=== PATIENT | female | born 1955 | race Caucasian/White ===

== ENCOUNTER 2019-11-19 09:59 | Emergency (ER) | payer MEDICARE, SELFPAY ==
[2019-11-19 09:59] VITALS: BP 108/74; PULSE 89; RESP 20; TEMP 36.9; O2SAT 94; BMI 29.8
--- NOTE | 2019-11-19 10:15 | ED_ITS ---
Entered by Klaudia Price, acting as scribe for HPI - Back Pain/Injury General: Chief Complaint: Back Pain/Injury Stated Complaint: Back Pain Time Seen by Provider: 11/19/19 10:19 Source: EMS Mode of arrival: EMS History of Present Illness: HPI Narrative: Ms. Dash is a very nice 64-year-old female who comes in complaining of right upper back pain. She states that she has a pain up underneath her right shoulder blade. She states it hurts more to take a deep breath and she is been coughing. She denies any chest pain or shortness of breath. She states that the pain started last night and is gotten progressively worse. It hurts more to sit and move in certain positions. She describes the pain as sharp and has had similar symptoms in the past but never to this degree. MD elicited complaint: back pain Onset (ago): day(s) (last night) Timing: constant Severity: moderate Quality: sharp Radiation: none Exacerbating factors: movement, walking and deep breaths Relieving factors: none Context: turning/twisting Associated symptoms: Reports other (shortness of breath , R shoulder pain, R rib pain and back pain); Deny abdominal pain, chills, difficulty walking, dysuria, fatigue, fever(s), hematuria, nausea, syncope, urinary urgency or vomiting Work related injury: No Review of Systems General: Reports: other (negative unless marked) Const: Denies: fever, chills, body aches, fatigue, malaise or diaphoresis Eyes: Denies: change in vision or blurry vision ENMT: Denies: throat pain, painful swallowing, hoarseness, ear pain, ear discharge, Change in hearing or nasal discharge Card: Denies: chest pain, palpitations, irregular heart rhythm, syncope, pre- syncope, shortness of breath on exertion or shortness of breath when lying down Resp: Denies: shortness of breath, productive cough, non-productive cough, wheezing, coughing up blood or chest congestion GI: Denies: abdominal pain, nausea, vomiting, vomiting blood, coffee grounds in vomit, diarrhea, constipation, cramping, blood in stool or black tarry stool : Denies: flank pain, painful urination, urinary frequency, urinary urgency, decreased urine ouput, urinary incontinence or blood in urine Musc: Reports: back pain; Denies: neck pain, extremity pain, extremity swelling, joint pain, joint swelling, joint warmth or joint stiffness Skin/Breast: Denies: rash, skin tenderness or yellow skin Neuro: Denies: headache, numbness in extremities, weakness in extremities, changes in sensation, lack of coordination, difficulty walking, dizziness, vertigo or confusion Endo: Denies: excessive thirst, tired all the time, cold intolerance, excessive sweating, flushing or hot flashes Joseph/Lymph: Denies: easy bruising, easy bleeding, petechiae or enlarged lymph nodes All/Imm: Denies: hives, throat swelling, tongue swelling, facial swelling or acute wheezing PFSH ED PFSH: Statuses (acute, chronic, etc) shown below reflect problem list status as previously entered and may not be historically accurate Medical History Asthma (Acute) Surgical History History of back surgery (Acute) Surgical history of tubal ligation (Acute) Social History Smoking and tobacco status: former smoker Physical Exam Const: COMMON NORMALS: no apparent distress, oriented x3, no limitations, healthy appearing and well nourished EXAM LIMITATIONS: no altered mental status GENERAL APPEARANCE: cooperative, well kempt and well developed ORIENTATION/CONSCIOUSNESS: Yes awake HENMT: COMMON NORMALS: normocephalic, head/scalp atraumatic, hearing grossly normal bilaterally, external ears normal, EAC's normal, external nose normal and moist oral mucous membranes HEAD & SCALP: normal to inspection, normocephalic and atraumatic FACE & SINUS: normal facial exam and face symmetric NOSE: external nose normal and nares normal EXTERNAL EAR: Yes external ears normal EXTERNAL AUDITORY CANAL: EAC's normal MOUTH: oral and palatal mucosa normal and tongue normal Eye: COMMON NORMALS: PERRL, EOMs intact bilaterally, conjunctivae normal and no scleral icterus GENERAL EYE: normal appearance of both eyes and normal light reflex CONJUNCTIVA: Yes conjunctivae normal SCLERA: sclerae normal CORNEA: Yes corneas normal PUPIL: Yes PERRL DIRECT OPHTHALMOSCOPY: Yes normal light reflex Neck/C-Spine: COMMON NORMALS: full ROM, no lymphadenopathy, supple, no meningeal signs and no JVD GENERAL: Yes normal visual inspection and Yes trachea midline CERVICAL SPINE: Yes cervical ROM normal Chest: COMMONS NORMALS: inspection of chest normal and palpation of chest normal Resp: COMMON NORMALS: normal respiratory effort, no retractions, no use of accessory muscles and clear to auscultation bilaterally EFFORT & INSPECTION: Yes able to speak in complete sentences AUSCULTATION: clear to auscultation bilaterally Cardio: COMMON NORMALS: no JVD, regular rate, regular rhythm, S1 normal heart sound, S2 normal heart sound, no gallops, no clicks, no murmurs and no rub JUGULAR VENOUS DISTENTION: no JVD RATE: regular rate RHYTHM: regular rhythm HEART SOUNDS: S1 normal and S2 normal GI: COMMON NORMALS: soft to palpation, non-tender, no hepatosplenomegaly and no masses INSPECTION: Yes normal to inspection PALPATION: Yes soft and Yes no hepatosplenomegaly : COMMON NORMALS: Yes no CVA tenderness BLADDER/KIDNEY EXAM: Yes no CVA tenderness Back/Pelvis: COMMON NORMALS: no CVA tenderness, thoracic and lumbar spine normal to inspection, no thoracic nor lumbar tenderness and thoraco-lumbar ROM normal Extremity: COMMON NORMALS: normal to inspection, full ROM, normal capillary refill, no joint enlargement, no clubbing, cyanosis or edema and no calf tenderness Neuro: COMMON NORMALS: oriented x3, CN's II-XII intact bilaterally, moves all extremities, no focal motor deficits and no sensory deficits noted MENINGEAL SIGNS: Yes no meningeal signs Psych: COMMON NORMALS: mental status grossly normal, thought process normal, cooperative, affect normal, speech normal and activity/motor behavior normal APPEARANCE: Yes well kempt SPEECH: Yes normal speech THOUGHT PROCESS: normal thought process Skin: COMMON NORMALS: no rashes or lesions noted, skin turgor normal, no jaundice, no petechiae and no mottling GENERAL SKIN EXAM: no rashes or lesions noted and turgor normal Course Vital Signs: Vital signs: Vital Signs Temperature 98.5 F 11/19/19 09:59 Pulse Rate 81 11/19/19 13:50 Respiratory Rate 20 H 11/19/19 12:46 Blood Pressure 125/80 11/19/19 13:50 Pulse Oximetry 93 11/19/19 13:50 MDM - Back Pain/Injury MDM Narrative: Medical decision making narrative: The patient comes in complaining of right upper back pain with a pleuritic component to her pain. Her d-dimer is negative and her Wells criteria is low so I do not believe she needs any further investigation such as a CTA. Patient overall is feeling better after pain medication. She has pain medication at home. Her CT shows a right upper lobe pneumonia which is likely causing her pain. Her cardiac evaluation is unremarkable. The patient has not abnormal EKG at baseline and no chest pain. Her troponins are acceptable if not progressed. The patient declines any further evaluation to include admission and would like to go home. She is not hypoxic I believe this would be appropriate. She does understand she is welcome to return should she change her mind. Lab Data: Labs: Lab Results 11/19/19 11/19/19 11/19/19 Range/Units 10:08 10:08 10:08 WBC 6.4 (4.0-10.0) 10^3/ uL RBC 4.61 (4.1-5.3) 10^6/u L Hgb 14.2 (11.5-15.3) g/dL Hct 43.8 (37.0-47.0) % MCV 95.0 (81-99) fL MCH 30.8 (28.0-34.0) pg MCHC 32.4 (30.0-36.0) g/dL RDW 12.1 (12.1-15.1) % Plt Count 333 (130-400) 10^3/c mm MPV 9.9 (7.4-10.4) fL Neut % (Auto) 55.0 % Lymph % (Auto) 37.4 % [place] % (Auto) 5.6 % Eos % (Auto) 1.2 % Baso % (Auto) 0.5 % Neut # (Auto) 3.5 (1.8-7.7) 10^3/u L Lymph # (Auto) 2.4 (0.8-4.8) 10^3/u L [place] # (Auto) 0.4 (0.2-0.9) 10^3/u L Eos # (Auto) 0.1 (0.0-0.8) 10^3/u L Baso # (Auto) 0.0 (0.0-0.1) 10^3/u L Nucleated RBC % (a uto) 0 % Nucleated RBCs # 0.0 /100WBC D-Dimer 0.34 (0-0.59) ug/mIFE U Sodium 141 (136-145) mmol/L Potassium 4.2 (3.5-5.1) mmol/L Chloride 107 (98-107) mmol/L Carbon Dioxide 20 L (22-29) mmol/L Anion Gap 18.2 (5-19) BUN 13 (8-23) mg/dL Creatinine 0.9 (0.5-0.9) mg/dL GFR Calculation 63.4 L (90-130) mL/min Glucose 95 (74-106) mg/dL POC Glucose (70-110) mg/dL Calcium 9.8 (8.8-10.2) mg/Dl Total Bilirubin 0.3 (0.15-1.2) mg/dL AST 35 H (0-32) U/L ALT 35 H (0-33) U/L Alkaline Phosphata se 124 H (35-105) IU/L Troponin T Baselin e (0-10) ng/mL Troponin T 120 Min [place] (0-10) ng/mL Delta Troponin T (0-10) ABS# Total Protein 7.2 (6.6-8.7) g/dL Albumin 5.4 H (3.5-5.2) g/dL Globulin 1.8 (1.3-4.6) g/dL Urine Color (Yellow) Urine Appearance (CLEAR) Urine pH (5-7) Ur Specific Gravit y (1.005-1.030) Urine Protein (Negative) Urine Glucose (UA) (Normal) Urine Ketones (Negative) Urine Occult Blood (Negative) Urine Nitrate (Negative) Urine Bilirubin (NEGATIVE) Urine Urobilinogen (Negative) mg/dL Ur Leukocyte [place] ase (Negative) Urine RBC (0-2) /hpf Urine WBC (0-5) /hpf Ur Squamous Epith Cells (0-5) Urine Bacteria (NONE) Urine Mucus 11/19/19 11/19/19 11/19/19 Range/Units 10:08 11:34 12:10 WBC (4.0-10.0) 10^3/ uL RBC (4.1-5.3) 10^6/u L Hgb (11.5-15.3) g/dL Hct (37.0-47.0) % MCV (81-99) fL MCH (28.0-34.0) pg MCHC (30.0-36.0) g/dL RDW (12.1-15.1) % Plt Count (130-400) 10^3/c mm MPV (7.4-10.4) fL Neut % (Auto) % Lymph % (Auto) % [place] % (Auto) % Eos % (Auto) % Baso % (Auto) % Neut # (Auto) (1.8-7.7) 10^3/u L Lymph # (Auto) (0.8-4.8) 10^3/u L [place] # (Auto) (0.2-0.9) 10^3/u L Eos # (Auto) (0.0-0.8) 10^3/u L Baso # (Auto) (0.0-0.1) 10^3/u L Nucleated RBC % (a uto) % Nucleated RBCs # /100WBC D-Dimer (0-0.59) ug/mIFE U Sodium (136-145) mmol/L Potassium (3.5-5.1) mmol/L Chloride (98-107) mmol/L Carbon Dioxide (22-29) mmol/L Anion Gap (5-19) BUN (8-23) mg/dL Creatinine (0.5-0.9) mg/dL GFR Calculation (90-130) mL/min Glucose (74-106) mg/dL POC Glucose 87 (70-110) mg/dL Calcium (8.8-10.2) mg/Dl Total Bilirubin (0.15-1.2) mg/dL AST (0-32) U/L ALT (0-33) U/L Alkaline Phosphata se (35-105) IU/L Troponin T Baselin e 10 (0-10) ng/mL Troponin T 120 Min [place] 13.35 H (0-10) ng/mL Delta Troponin T 3.35 (0-10) ABS# Total Protein (6.6-8.7) g/dL Albumin (3.5-5.2) g/dL Globulin (1.3-4.6) g/dL Urine Color (Yellow) Urine Appearance (CLEAR) Urine pH (5-7) Ur Specific Gravit y (1.005-1.030) Urine Protein (Negative) Urine Glucose (UA) (Normal) Urine Ketones (Negative) Urine Occult Blood (Negative) Urine Nitrate (Negative) Urine Bilirubin (NEGATIVE) Urine Urobilinogen (Negative) mg/dL Ur Leukocyte [place] ase (Negative) Urine RBC (0-2) /hpf Urine WBC (0-5) /hpf Ur Squamous Epith Cells (0-5) Urine Bacteria (NONE) Urine Mucus 11/19/19 Range/Units 12:40 WBC (4.0-10.0) 10^3/ uL RBC (4.1-5.3) 10^6/u L Hgb (11.5-15.3) g/dL Hct (37.0-47.0) % MCV (81-99) fL MCH (28.0-34.0) pg MCHC (30.0-36.0) g/dL RDW (12.1-15.1) % Plt Count (130-400) 10^3/c mm MPV (7.4-10.4) fL Neut % (Auto) % Lymph % (Auto) % [place] % (Auto) % Eos % (Auto) % Baso % (Auto) % Neut # (Auto) (1.8-7.7) 10^3/u L Lymph # (Auto) (0.8-4.8) 10^3/u L [place] # (Auto) (0.2-0.9) 10^3/u L Eos # (Auto) (0.0-0.8) 10^3/u L Baso # (Auto) (0.0-0.1) 10^3/u L Nucleated RBC % (a uto) % Nucleated RBCs # /100WBC D-Dimer (0-0.59) ug/mIFE U Sodium (136-145) mmol/L Potassium (3.5-5.1) mmol/L Chloride (98-107) mmol/L Carbon Dioxide (22-29) mmol/L Anion Gap (5-19) BUN (8-23) mg/dL Creatinine (0.5-0.9) mg/dL GFR Calculation (90-130) mL/min Glucose (74-106) mg/dL POC Glucose (70-110) mg/dL Calcium (8.8-10.2) mg/Dl Total Bilirubin (0.15-1.2) mg/dL AST (0-32) U/L ALT (0-33) U/L Alkaline Phosphata se (35-105) IU/L Troponin T Baselin e (0-10) ng/mL Troponin T 120 Min [place] (0-10) ng/mL Delta Troponin T (0-10) ABS# Total Protein (6.6-8.7) g/dL Albumin (3.5-5.2) g/dL Globulin (1.3-4.6) g/dL Urine Color Straw (Yellow) Urine Appearance Clear (CLEAR) Urine pH 5.0 (5-7) Ur Specific Gravit y 1.010 (1.005-1.030) Urine Protein Neg (Negative) Urine Glucose (UA) Norm (Normal) Urine Ketones Negative (Negative) Urine Occult Blood Neg (Negative) Urine Nitrate Negative (Negative) Urine Bilirubin Neg (NEGATIVE) Urine Urobilinogen Norm (Negative) mg/dL Ur Leukocyte [place] ase Negative (Negative) Urine RBC None (0-2) /hpf Urine WBC None (0-5) /hpf Ur Squamous Epith Cells 0-4 H (0-5) Urine Bacteria Trace (NONE) Urine Mucus Trace Imaging Data^: CXR: Radiologist's impression: [place] [address] XRay Report Signed Patient: Camille Dash MR#: [id number] : 1955 Acct:[id number] Age/Sex: 64 / F ADM Date: 11/19/19 Loc: ER Attending Dr: Ordering Physician: Maame Zacarias DO Date of Service: 11/19/19 Procedure(s): XR chest 1V portable [id number] Accession Number(s): [id number] Report Number: [id number] WS: [id number] PORTABLE CHEST HISTORY: PAIN COMPARISON: 02/05/2015 Lungs are clear and well expanded. No pleural effusion or pneumothorax. Cardiac size: Normal. Mediastinum/Aorta: Mild ectasia thoracic aorta. No mediastinal widening. No osseous abnormality seen. XR/XR chest 1V portable [id number] IMPRESSION: Unremarkable portable chest. Dictated By: Joselyn Duke DO Signed By: Joselyn Duke DO Signed Date/Time:11/19/19 1133 DD/ 1133 CT Chest: Radiologist's impression: [facility] [address] [place] [address] CT Scan Report Signed Patient: Camille Dash MR#: [id number] : 1955 Acct:[id number] Age/Sex: 64 / F ADM Date: 11/19/19 Loc: ER Attending Dr: Ordering Physician: Maame Zacarias DO Date of Service: 11/19/19 Procedure(s): CT chest w con* [id number] Accession Number(s): [id number] Report Number: [id number] WS: [id number] CT CHEST WITH INTRAVENOUS CONTRAST HISTORY: Right-sided chest pain. TECHNIQUE: Contiguous 5 mm axial imaging performed on the thorax. Coronal and sagittal reformats are submitted. All CT scans at [facility] use at least one of these dose optimization te chniques: automated exposure control; mA and/or kV adjustment per patient size (includes targeted exams where dose is matched to clinical indication); or iterative reconstruction. CONTRAST: Omnipaque 300; 95 mL IV. DLP: 879.19 mGy-cm. COMPARISON: 02/05/2015 and chest radiograph 11/19/2019 Lungs and central airway: Small branching nodular densities in the RIGHT upper lobe. Otherwise lungs are clear. Pleura: Normal. No pleural effusion. Heart and pericardium: Cardiac chambers are mildly enlarged. Mediastinum and jean pierre: No mediastinum or hilar adenopathy. Vessels: Mild atherosclerosis aorta. Chest wall and lower neck: No soft tissue masses. Upper abdomen: Hepatic cyst in the RIGHT posterior lobe is stable. No bile duct dilatation. Gallbladder is incompletely visualized but does contain stones and a small amount of sludge. No adrenal mass. Osseous structures: Mild wedging of T5. No osteoblastic or osteolytic bone disease. CT/CT chest w con* [id number] IMPRESSION: 1. Endobronchial pneumonia RIGHT upper lobe. 2. Mild atherosclerosis aorta and mild cardiomegaly. 3. Cholelithiasis without acute cholecystitis. Dictated By: Joselyn Duke DO Signed By: Linda Dukeh A Signed Date/Time:11/19/19 1254 DD/ 1235 EKG Data^: EKG 1: Attestation: I personally reviewed and interpreted this EKG as follows: (1151 - normal sinus rhythm at 68 beats a minute, normal axis. Normal QRS. T waves inverted V2 through V6, consistent with previous) Discharge Plan Discharge Patient Disposition: Home, Self-Care Clinical Impression: Pneumonia Qualifiers: Pneumonia type: due to unspecified organism Laterality: right Lung location: upper lobe of lung Qualified Code(s): J18.9 - Pneumonia, unspecified organism Condition: Stable Prescriptions: New cefdinir 300 mg capsule 300 mg PO Q12H 10 Days Qty: 20 RF: 0 doxycycline hyclate 100 mg capsule 100 mg PO BID 10 Days Qty: 20 RF: 0 Continued hydrocodone-acetaminophen 5-325 mg Tablet 1 tab PO TID MDD 3 PRN (Reason: Pain) RF: 0 amitriptyline 50 mg Tablet 50 mg PO BEDTIME RF: 0 zonisamide 100 mg Capsule 400 mg PO DAILY RF: 0 albuterol sulfate [ProAir HFA] 90 mcg/actuation Hfa Aerosol Inhaler 2 inh INHALATION BID RF: 0 multivitamin Capsule 1 cap PO DAILY RF: 0 albuterol sulfate 2.5 mg /3 mL (0.083 %) Solution For Nebulization 2.5 mg inhalation BID PRN (Reason: Shortness Of Breath) RF: 0 Colace 100 mg Capsule 300 mg PO BEDTIME RF: 0 Super B-50 Complex Capsule 1 cap PO DAILY RF: 0 Advair HFA 115-21 mcg/actuation Hfa Aerosol Inhaler 2 puff INHALATION BID RF: 0 Prevagen 1 cap PO DAILY RF: 0 Discharge Orders: Discharge Order (Routine); Ordered 11/19/19 Ordered By: Maame Zacarias Referrals: Otilio Rojas FNP [Primary Care Provider] - 1-3 days Discharge Diet: Usual diet Discharge Activity: Increase activity as tolerated Patient Instructions: Bacterial Pneumonia (ED) Activity Restrictions/Additional Instructions: Please return to the ER immediately for any of the signs or symptoms listed on your discharge instruction sheets, worsening/changing of your symptoms, you are not getting better as quickly as expected, or for ANY other cause or concerns. Coding Level of Care Code ED Engineering Director for Jack Hoffmann Exam Problem Focused The documentation recorded by the Albert priest Bridget Annette, accurately reflects the service I personally performed and the decisions made by me, Maame Zacarias
[2019-11-19 10:37] VITALS: RESP 20
[2019-11-19 10:37] LABS: Basophils % 0.5 %; Eosinophils # 0.1 10^3/uL (0.0-0.8); Eosinophils % 1.2 %; Hematocrit 43.8 % (37.0-47.0); Hemoglobin 14.2 g/dL (11.5-15.3); Lymphocytes # 2.4 10^3/uL (0.8-4.8); Lymphocytes % 37.4 %; Mean Corpuscular HGB Conc 32.4 g/dL (30.0-36.0); Mean Corpuscular Hemoglobin 30.8 pg (28.0-34.0); Mean Platelet Volume 9.9 fL (7.4-10.4); Monocytes # 0.4 10^3/uL (0.2-0.9); Monocytes % 5.6 %; Neutrophils # 3.5 10^3/uL (1.8-7.7); Nucleated Red Blood Cells % 0 %; Platelet Count 333 10^3/cmm (130-400); Red Blood Count 4.61 10^6/uL (4.1-5.3); Red Cell Distribution Width 12.1 % (12.1-15.1); White Blood Count 6.4 10^3/uL (4.0-10.0)
[2019-11-19] MEDS: sodium chloride 0.9% 1,000 ML 999 ML IV (10:37)
[2019-11-19] MEDS: ondansetron 2 mg/ML SDV 2 mL 4 MG IVP ×2 (10:37→12:46)
[2019-11-19] MEDS: morphine 4 mg/mL SDV 1 mL IVP ×2 (10:37→12:46)
[2019-11-19 10:45] LABS: D Dimer 0.34 ug/mIFEU (0-0.59)
[2019-11-19 10:48] LABS: Alanine Aminotransferase 35 U/L (0-33); Albumin Level 5.4 g/dL (3.5-5.2); Alkaline Phosphatase 124 IU/L (35-105); Anion Gap 18.2 (5-19); Aspartate Amino Transferase 35 U/L (0-32); Blood Urea Nitrogen 13 mg/dL (8-23); Calcium 9.8 mg/Dl (8.8-10.2); Carbon Dioxide 20 mmol/L (22-29); Chloride 107 mmol/L (98-107); Globulin 1.8 g/dL (1.3-4.6); Glomerular Filtration Rate 63.4 mL/min (90-130); Glucose 95 mg/dL (74-106); Potassium 4.2 mmol/L (3.5-5.1); Sodium 141 mmol/L (136-145); Total Bilirubin 0.3 mg/dL (0.15-1.2); Total Protein 7.2 g/dL (6.6-8.7)
[2019-11-19 10:50] LABS: Troponin(5th) Baseline 10 ng/mL (0-10)
--- NOTE | 2019-11-19 11:00 | PC.NURSE ---
portable chest xray in room
--- NOTE | 2019-11-19 11:21 | XR_ITS ---
WS: [id number] PORTABLE CHEST HISTORY: PAIN COMPARISON: 02/05/2015 Lungs are clear and well expanded. No pleural effusion or pneumothorax. Cardiac size: Normal. Mediastinum/Aorta: Mild ectasia thoracic aorta. No mediastinal widening. No osseous abnormality seen. XR/XR chest 1V portable [id number] IMPRESSION: Unremarkable portable chest.
--- NOTE | 2019-11-19 11:22 | ECG_ITS ---
Measurements Intervals [place] Rate: 68 P: -23 HI: 153 QRS: 23 QRSD: 75 T: -31 QT: 381 QTc: 406 SINUS RHYTHM LOW QRS VOLTAGE IN PRECORDIAL LEADS [QRS DEFLECTION < 1.0 mV IN CHEST LEADS] ST DEVIATION AND MODERATE T-WAVE ABNORMALITY, CONSIDER ANTERIOR ISCHEMIA [-0.1+ mV T WAVE IN V3/V4] ST DEVIATION AND MODERATE T-WAVE ABNORMALITY, CONSIDER INFERIOR ISCHEMIA [-0.1+ mV T WAVE IN II/aVF] INTERPRETATION BASED ON A DEFAULT AGE OF 40 YEARS Compared to ECG 02/07/2015 05:35:46 Atrial-paced complex(es) or rhythm no longer present T-wave abnormality still present Possible ischemia still present Electronically Signed On 11-19-2019 15:07:43 PROCESS OPERATOR by Evonne Joe M.D. [id number]
[2019-11-19 11:38] LABS: Glucose Point of Care 87 mg/dL (70-110)
--- NOTE | 2019-11-19 11:39 | CT_ITS ---
WS: [id number] CT CHEST WITH INTRAVENOUS CONTRAST HISTORY: Right-sided chest pain. TECHNIQUE: Contiguous 5 mm axial imaging performed on the thorax. Coronal and sagittal reformats are submitted. All CT scans at [facility] use at least one of these dose optimization techniq ues: automated exposure control; mA and/or kV adjustment per patient size (includes targeted exams wh ere dose is matched to clinical indication); or iterative reconstruction. CONTRAST: Omnipaque 300; 95 mL IV. DLP: 879.19 mGy-cm. COMPARISON: 02/05/2015 and chest radiograph 11/19/2019 Lungs and central airway: Small branching nodular densities in the RIGHT upper lobe. Otherwise lungs are clear. Pleura: Normal. No pleural effusion. Heart and pericardium: Cardiac chambers are mildly enlarged. Mediastinum and jean pierre: No mediastinum or hilar adenopathy. Vessels: Mild atherosclerosis aorta. Chest wall and lower neck: No soft tissue masses. Upper abdomen: Hepatic cyst in the RIGHT posterior lobe is stable. No bile duct dilatation. Gallbladd er is incompletely visualized but does contain stones and a small amount of sludge. No adrenal mass. Osseous structures: Mild wedging of T5. No osteoblastic or osteolytic bone disease. CT/CT chest w con* [id number] IMPRESSION: 1. Endobronchial pneumonia RIGHT upper lobe. 2. Mild atherosclerosis aorta and mild cardiomegaly. 3. Cholelithiasis without acute cholecystitis.
[2019-11-19 11:46] VITALS: BP 122/76; PULSE 67; O2SAT 97
--- NOTE | 2019-11-19 12:21 | PC.NURSE ---
pt off unit to ct by stretcher with tech
[2019-11-19 12:38] LABS: Troponin 5 2HR 13.35 ng/mL (0-10)
[2019-11-19 12:46] VITALS: RESP 20; O2SAT 98
[2019-11-19 12:52] LABS: Troponin 5 2HR Delta 3.35 ABS# (0-10)
[2019-11-19 12:52] LABS: Bilirubin Urine Neg (NEGATIVE); Blood Urine Neg (Negative); Glucose Urine UA Norm (Normal); Ketones Urine Negative (Negative); Leukocyte Esterase Urine Negative (Negative); Nitrate Urine Negative (Negative); Protein Urine Neg (Negative); Urine Appearance Clear (CLEAR); Urine Color Straw (Yellow); Urobilinogen Urine Norm (Negative)
[2019-11-19 12:56] LABS: Add Urine Culture? No; Bacteria Urine TRACE; Mucus Urine TRACE; Squamous Epithelial Cell Urine 0-4 (0-5)
[2019-11-19] MEDS: cefTRIAXone 1,000 MG in sodium chloride 0.9% (plus) 50 ML 100 MG IV (13:24)
[2019-11-19] MEDS: doxycycline 100 mg Tablet 200 MG PO (13:24)
[2019-11-19 13:27] VITALS: BP 110/88; PULSE 87; O2SAT 95
[2019-11-19 13:50] VITALS: BP 125/80; PULSE 81; O2SAT 93
--- NOTE | 2019-11-19 17:22 | ECG_ITS ---
Measurements Intervals [place] Rate: 73 P: 64 AK: 190 QRS: 38 QRSD: 77 T: -40 QT: 368 QTc: 407 SINUS RHYTHM LOW QRS VOLTAGE IN PRECORDIAL LEADS [QRS DEFLECTION < 1.0 mV IN CHEST LEADS] SEPTAL MYOCARDIAL INFARCTION , OF INDETERMINATE AGE [40+ ms Q WAVE IN V1/V2] MODERATE T-WAVE ABNORMALITY, CONSIDER ANTEROLATERAL ISCHEMIA [-0.1+ mV T WAVE IN V3-V6] MODERATE T-WAVE ABNORMALITY, CONSIDER INFERIOR ISCHEMIA [-0.1+ mV T WAVE IN II/aVF] Compared to ECG 02/07/2015 05:35:46 Myocardial infarct finding now present Atrial-paced complex(es) or rhythm no longer present T-wave abnormality still present Possible ischemia still present Electronically Signed On 11-19-2019 15:08:38 LAND CLEARER by Evonne Joe M.D. [email or web address]
== END 2019-11-19 13:50 | disposition home or self-care (01) ==
LOC: ER 11-20 02:56
PROVIDERS: Emergency Provider Emergency Medicine; Family Provider Registered Nurse; PCP Registered Nurse
DX: J18.9 Pneumonia, unspecified organism (principal); Z87.891 Personal history of nicotine dependence; J45.909 Unspecified asthma, uncomplicated
CPT/HCPCS: 36415; 36416; 71045; 71260; 80053; 81001; 82962; 84484; 85025; 85378; 93005; 96360; 96365; 96374; 99283; A9270; J0696; J2270; J2405; J7030; Q9967

== ENCOUNTER → 2020-01-07 10:12 | Outpatient (BNVA) | payer MEDICARE, SELFPAY | PROVIDERS: Family Provider Registered Nurse; PCP Registered Nurse; Visit Provider Anesthesiology | DX: M47.22 Other spondylosis with radiculopathy, cervical region (principal); M50.020 Cervical disc disorder with myelopathy, mid-cervical region, unspecified level; M51.17 Intervertebral disc disorders with radiculopathy, lumbosacral region; Z98.1 Arthrodesis status; Z79.891 Long term (current) use of opiate analgesic | CPT/HCPCS: 99214 ==

== ENCOUNTER 2020-01-11 11:35 | Outpatient (RCR) | payer MEDICARE, SELFPAY | END 2020-01-15 23:59 | disposition home or self-care (01) | LOC: SPT 11:35 | PROVIDERS: Family Provider Registered Nurse; PCP Registered Nurse; Referring Provider Licensed Practical Nurse; Visit Provider Licensed Practical Nurse | DX: M51.17 Intervertebral disc disorders with radiculopathy, lumbosacral region (principal) | CPT/HCPCS: 97110; 97162 ==

== ENCOUNTER 2020-01-16 06:00 | Outpatient (RCR) | payer MEDICARE, SELFPAY | END 2020-02-15 23:59 | disposition home or self-care (01) | LOC: SPT 06:00 | PROVIDERS: Family Provider Registered Nurse; PCP Registered Nurse; Referring Provider Licensed Practical Nurse; Visit Provider Licensed Practical Nurse | DX: M51.17 Intervertebral disc disorders with radiculopathy, lumbosacral region (principal) | CPT/HCPCS: 97113 ==

== ENCOUNTER 2020-03-25 11:18 | Inpatient (IN) | payer MEDICARE, SELFPAY ==
[2020-03-25] VITALS (10 sets, daily range): BP systolic 121–135; BP diastolic 71–89; PULSE 69–95; RESP 17–20; TEMP 36.3–36.9; O2SAT 94–98; BMI 29.2
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
[2020-03-25] MEDS: ketorolac 30 mg/mL INJ IVP (11:56)
[2020-03-25] MEDS: orphenadrine 30 mg/mL Inj 2 mL 60 MG IVP (11:57)
[2020-03-25] MEDS: morphine 4 mg/mL SDV 1 mL 8 MG IVP (11:59)
[2020-03-25] MEDS: fentaNYL 50 mcg/mL INJ 2mL IVP (13:02)
[2020-03-25] MEDS: HYDROmorphone 1 mg/mL INJ 1 mL IVP ×4 (15:31→22:53)
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
[2020-03-25] MEDS: albuterol 8 gm MDI 2 PUFF INHALATION (21:13)
[2020-03-25] MEDS: docusate sodium 100 mg Capsule 300 MG PO (22:35)
[2020-03-25] MEDS: enoxaparin 40 mg/0.4 mL Syringe SUBCUT (22:36)
[2020-03-25] MEDS: cyclobenzaprine 10 mg Tablet PO (22:53)
[2020-03-26] VITALS (13 sets, daily range): BP systolic 119–132; BP diastolic 68–81; PULSE 68–80; RESP 16–18; TEMP 36.6–37; O2SAT 91–95
[2020-03-26 05:49] LABS: Basophils % 0.7 %; Eosinophils # 0.1 10^3/uL (0.0-0.8); Eosinophils % 1.4 %; Hematocrit 39.2 % (37.0-47.0); Hemoglobin 12.3 g/dL (11.5-15.3); Lymphocytes # 1.8 10^3/uL (0.8-4.8); Mean Corpuscular HGB Conc 31.4 g/dL (30.0-36.0); Mean Corpuscular Hemoglobin 30.4 pg (28.0-34.0); Mean Corpuscular Volume 96.8 fL (81-99); Monocytes # 0.4 10^3/uL (0.2-0.9); Monocytes % 7.5 %; Neutrophils # 3.3 10^3/uL (1.8-7.7); Neutrophils % 58.2 %; Nucleated Red Blood Cells % 0 %; Platelet Count 295 10^3/cmm (130-400); Red Blood Count 4.05 10^6/uL (4.1-5.3); Red Cell Distribution Width 13.2 % (12.1-15.1); White Blood Count 5.6 10^3/uL (4.0-10.0)
[2020-03-26 06:07] LABS: Alanine Aminotransferase 24 U/L (0-33); Albumin Level 3.9 g/dL (3.5-5.2); Alkaline Phosphatase 96 IU/L (35-105); Anion Gap 14.2 (5-19); Aspartate Amino Transferase 25 U/L (0-32); Blood Urea Nitrogen 24 mg/dL (8-23); Calcium 9.8 mg/dL (8.5-10.5); Carbon Dioxide 24 mmol/L (22-29); Chloride 107 mmol/L (98-107); Globulin 3.1 g/dL (1.3-4.6); Glomerular Filtration Rate 72.7 mL/min (90-130); Glucose 104 mg/dL (65-115); Osmolality Calculated 289 mOsm/kg (285-295); Phosphorus 5.5 mg/dL (2.5-4.5); Potassium 4.2 mmol/L (3.5-5.1); Sodium 141 mmol/L (136-145); Total Bilirubin 0.3 mg/dL (0.15-1.2)
[2020-03-26] MEDS: albuterol 8 gm MDI 2 PUFF INHALATION ×4 (07:46→20:31)
[2020-03-26] MEDS: TRAMadol 50 mg Tablet PO ×2 (09:27→17:14)
[2020-03-26] MEDS: zonisamide 100 MG Capsule 400 MG PO (09:28)
[2020-03-26] MEDS: cyclobenzaprine 10 mg Tablet PO ×2 (11:25→21:35)
[2020-03-26] MEDS: HYDROmorphone 1 mg/mL INJ 1 mL IVP ×2 (13:14→21:35)
[2020-03-26] MEDS: pantoprazole DR 40 mg Tablet PO (13:36)
--- NOTE | 2020-03-26 14:12 | PM.PN ---
Subjective Subjective: Interval history: Patient was examined, currently lying in bed, states that she has to stay as still as possible, as anything can exacerbate her back pain, she did get up to try to use the bathroom, had severe episodes of back pain, states that the Dilaudid and tramadol are helping to some degree Vitals/I&O/Wt Last Vital Signs Temp 98.6 F 03/26/20 11:55 Pulse 80 03/26/20 11:55 Resp 18 03/26/20 13:14 BP 132/78 03/26/20 11:55 Pulse Ox 94 03/26/20 13:14 03/25/20 03/26/20 03/26/20 22:59 06:59 14:59 Intake Total 580 / 580 0 / 580 220 / 220 Output Total 200 / 200 Balance 580 / 580 0 / 580 Weight last 48 hrs Weight 72.575 kg Physical Exam Const: COMMON NORMALS: no apparent distress and oriented x3 GENERAL APPEARANCE: cooperative and comfortable HENMT: COMMON NORMALS: normocephalic HEAD & SCALP: normocephalic Neck/C-Spine: COMMON NORMALS: no JVD Lymph: LYMPHATIC: no lymphadenopathy noted Resp: COMMON NORMALS: normal respiratory effort, no retractions, no use of accessory muscles and clear to auscultation bilaterally AUSCULTATION: clear to auscultation bilaterally Cardio: COMMON NORMALS: no JVD, regular rate, regular rhythm, S1 normal heart sound, S2 normal heart sound, no gallops, no clicks and no murmurs RATE: regular rate RHYTHM: regular rhythm HEART SOUNDS: S1 normal and S2 normal GI: COMMON NORMALS: normal to inspection, nondistended, normoactive bowel sounds, soft to palpation, non-tender and no hepatosplenomegaly PALPATION: Yes soft and Yes no hepatosplenomegaly Back/Pelvis: LUMBAR SPINE/LOWER BACK: Yes normal to inspection, Yes ROM limited, Yes lumbar spinal tenderness, Yes paraspinal muscle tenderness and Yes paraspinal muscle spasm OTHER: Severe lumbar back pain, lumbar back pain with range of motion, has spinal tenderness, has paraspinal tenderness and spasms, Extremity: COMMON NORMALS: normal to inspection, full ROM and no pedal edema Neuro: COMMON NORMALS: oriented x3 Psych: COMMON NORMALS: mental status grossly normal, thought process normal and cooperative THOUGHT PROCESS: normal thought process Data : 03/26/20 05:34 03/26/20 05:34 A&P Assessment and plan (1) Displacement of lumbar disc with radiculopathy: Will admit to general medical floors for pain control Plan: -Dilaudid 1 mg every 2 as needed -Tramadol 50 mg every 4 hours as needed -PT OT -Lovenox for DVT prophylaxis -Dr. Watson has been consulted by ER physicians, will await his recommendations, possible surgical interventions have been discussed -Full code -General diet Status: Acute (2) Spinal stenosis of lumbar region with radiculopathy: Status: Acute (3) Intervertebral disc disorder with radiculopathy of lumbosacral region: Status: Chronic Attestations Medical Necessity Statement*: Patient requires hospitalization for intractable back pain, awaiting surgical intervention Coding Level of Care Code Acute Sheet Rock Sander for g Fwd Diagnoses Displacement of lumbar disc with radiculopathy M51.16 Spinal stenosis of lumbar region with radiculopathy M48.061; M54.16 Intervertebral disc disorder with radiculopathy of lumbosacral region M51.17
[2020-03-26] MEDS: docusate sodium 100 mg Capsule 300 MG PO (21:31)
[2020-03-26] MEDS: enoxaparin 40 mg/0.4 mL Syringe SUBCUT (21:31)
[2020-03-27] VITALS (13 sets, daily range): BP systolic 132–147; BP diastolic 75–84; PULSE 70–102; RESP 16–20; TEMP 36.3–37.4; O2SAT 91–98
[2020-03-27 05:56] LABS: Basophils % 0.4 %; Eosinophils # 0.1 10^3/uL (0.0-0.8); Eosinophils % 1.4 %; Hematocrit 38.1 % (37.0-47.0); Hemoglobin 12.1 g/dL (11.5-15.3); Lymphocytes # 1.9 10^3/uL (0.8-4.8); Mean Corpuscular HGB Conc 31.8 g/dL (30.0-36.0); Mean Corpuscular Hemoglobin 30.5 pg (28.0-34.0); Monocytes # 0.6 10^3/uL (0.2-0.9); Monocytes % 7.9 %; Neutrophils # 4.6 10^3/uL (1.8-7.7); Nucleated Red Blood Cells % 0 %; Platelet Count 294 10^3/cmm (130-400); Red Blood Count 3.97 10^6/uL (4.1-5.3); Red Cell Distribution Width 13.1 % (12.1-15.1); White Blood Count 7.1 10^3/uL (4.0-10.0)
[2020-03-27 06:09] LABS: Alanine Aminotransferase 21 U/L (0-33); Alkaline Phosphatase 90 IU/L (35-105); Anion Gap 14.9 (5-19); Aspartate Amino Transferase 23 U/L (0-32); Blood Urea Nitrogen 26 mg/dL (8-23); Calcium 8.7 mg/dL (8.5-10.5); Carbon Dioxide 24 mmol/L (22-29); Chloride 106 mmol/L (98-107); Globulin 2.4 g/dL (1.3-4.6); Glomerular Filtration Rate 72.7 mL/min (90-130); Glucose 98 mg/dL (65-115); Osmolality Calculated 289 mOsm/kg (285-295); Phosphorus 4.4 mg/dL (2.5-4.5); Potassium 3.9 mmol/L (3.5-5.1); Sodium 141 mmol/L (136-145); Total Bilirubin 0.3 mg/dL (0.15-1.2); Total Protein 6.4 g/dL (6.6-8.7)
[2020-03-27] MEDS: albuterol 8 gm MDI 2 PUFF INHALATION ×4 (08:18→20:19)
[2020-03-27] MEDS: pantoprazole DR 40 mg Tablet PO (08:23)
[2020-03-27] MEDS: zonisamide 100 MG Capsule 400 MG PO (08:23)
[2020-03-27] MEDS: TRAMadol 50 mg Tablet PO ×2 (09:36→16:30)
--- NOTE | 2020-03-27 10:02 | P.PN_ITS ---
Subjective Subjective: Interval history: This morning patient states that she continues to have back pain with minimal movement, if she can lie still, she will not have pain, but whenever she moves she gets spasms of back pain, states that the Dilaudid does help, but wears off Vitals/I&O/Wt Last Vital Signs Temp 97.3 F L 03/27/20 07:27 Pulse 77 03/27/20 08:18 Resp 16 03/27/20 08:18 BP 132/75 03/27/20 07:27 Pulse Ox 98 03/27/20 08:18 03/26/20 03/27/20 03/27/20 22:59 06:59 14:59 Intake Total 540 / 760 150 / 150 Output Total 0 / 200 Balance 540 / 560 0 / 560 150 / 150 Weight last 48 hrs Weight 72.575 kg Physical Exam Const: COMMON NORMALS: no apparent distress and oriented x3 GENERAL APPEARANCE: cooperative and comfortable HENMT: COMMON NORMALS: normocephalic HEAD & SCALP: normocephalic Neck/C-Spine: COMMON NORMALS: full ROM, no lymphadenopathy, no JVD and thyroid normal THYROID: thyroid normal Lymph: LYMPHATIC: no lymphadenopathy noted Resp: COMMON NORMALS: normal respiratory effort, no retractions, no use of accessory muscles and clear to auscultation bilaterally AUSCULTATION: clear to auscultation bilaterally Cardio: COMMON NORMALS: no JVD, regular rate, regular rhythm, S1 normal heart sound, S2 normal heart sound, no gallops, no clicks and no murmurs RATE: regular rate RHYTHM: regular rhythm HEART SOUNDS: S1 normal and S2 normal GI: COMMON NORMALS: normal to inspection, nondistended, normoactive bowel sounds, soft to palpation, non-tender and no hepatosplenomegaly PALPATION: Yes soft and Yes no hepatosplenomegaly Back/Pelvis: LUMBAR SPINE/LOWER BACK: Yes normal to inspection, Yes ROM li mited, Yes lumbar spinal tenderness, Yes paraspinal muscle tenderness and Yes paraspinal muscle spasm OTHER: Severe lumbar back pain, lumbar back pain with range of motion, has spinal tenderness, has paraspinal tenderness and spasms, Extremity: COMMON NORMALS: normal to inspection, full ROM and no pedal edema Neuro: COMMON NORMALS: oriented x3 Data : 03/27/20 05:37 03/27/20 05:37 A&P Assessment and plan (1) Displacement of lumbar disc with radiculopathy: Will admit to general medical floors for pain control Plan: -Dilaudid 1 mg every4 as needed -Tramadol 50 mg every 4 hours as needed -PT OT -Lovenox for DVT prophylaxis -I have spoken to Dr. Watson this morning, he will come by and see the patient this afternoon, appreciate recommendations -Full code -General diet Status: Acute (2) Spinal stenosis of lumbar region with radiculopathy: Status: Acute (3) Intervertebral disc disorder with radiculopathy of lumbosacral region: Status: Chronic Attestations Medical Necessity Statement*: Requires continued hospitalization for intractable back pain Coding Level of Care Code Acute Elevator Installer Apprentice for Jack Hoffmann Diagnoses Displacement of lumbar disc with radiculopathy M51.16 Spinal stenosis of lumbar region with radiculopathy M48.061; M54.16 Intervertebral disc disorder with radiculopathy of lumbosacral region M51.17
--- NOTE | 2020-03-27 10:54 | MR_ITS ---
WS: [id number] MRI LUMBAR SPINE NONCONTRAST HISTORY: lumbar disc displacement COMPARISON: 09/03/2019 TECHNIQUE: Sagittal and axial multisequence imaging is submitted. Prior cervical fixation. Mild narrowing of the central cervical canal. Mild LEFT curvature lumbar spine. There are mild straightening of the posterior vertebral bodies. Mild disc space narrowing and desiccation most significant at L4-5. There is a small amount of marrow edema along the adjacent endplates of L4 and L5, greatest towards the RIGHT. Conus terminates normally at L1-2 disc level. L1-L2: No stenosis. Mild facet arthropathy. L2-L3: Mild annular disc bulging and facet arthritis. No significant stenosis. L3-L4: Mild diffuse annular disc bulging and osteophytic ridging with facet arthropathy. Small amount of fluid in the facet joints. There is very mild narrowing of the central canal and subarticular rec esses with mild bilateral foraminal narrowing. L4-L5: Diffuse annular disc bulging with a central large broad-based disc protrusion. Central disc pr otrusion extends just inferior to the disc space with encroachment into the thecal sac and subarticul ar recesses. Severe central, bilateral subarticular recess stenosis and mild bilateral foraminal sten osis. Increasing fluid in the facet joints. Most significant inflammatory changes surround the RIGHT facet joint. L5-S1: Diffuse annular disc bulging. Mild facet arthropathy. Mild osteophytic ridging. Mild central a nd bilateral foraminal stenosis and subarticular recess stenosis. Similar to the prior study. There is a large mixed signal intensity mass in the pelvis thought to be a fibroid. Fibroid measures 7.5 x 5.4 cm. MR/MR lumbar spine wo con* [id number] IMPRESSION: 1. Severe central, subarticular recess and mild bilateral foraminal stenosis a t L4-5. New central disc protrusion now encroaching upon the thecal sac with si gnificant impingement resulting in stenosis. 2. Widening with increased fluid in the L4-5 facet joint and acute inflammator y changes surrounding the facet joints at L4-5. 3. Mild central, subarticular recess and foraminal narrowing at L3-4 and L5-S1 . 4. Large uterine fibroid.
[2020-03-27] MEDS: HYDROmorphone 1 mg/mL INJ 1 mL IVP ×3 (13:07→22:25)
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
[2020-03-27] MEDS: cyclobenzaprine 10 mg Tablet PO (14:07)
[2020-03-27] MEDS: enoxaparin 40 mg/0.4 mL Syringe SUBCUT (20:01)
[2020-03-27] MEDS: docusate sodium 100 mg Capsule 300 MG PO (20:01)
[2020-03-28] VITALS (12 sets, daily range): BP systolic 118–144; BP diastolic 71–83; PULSE 66–89; RESP 14–20; TEMP 36.6–37.6; O2SAT 92–97
[2020-03-28 05:05] LABS: Basophils % 0.4 %; Eosinophils # 0.1 10^3/uL (0.0-0.8); Eosinophils % 1.3 %; Hematocrit 37.3 % (37.0-47.0); Hemoglobin 11.4 g/dL (11.5-15.3); Lymphocytes # 1.5 10^3/uL (0.8-4.8); Mean Corpuscular HGB Conc 30.6 g/dL (30.0-36.0); Mean Corpuscular Hemoglobin 29.3 pg (28.0-34.0); Mean Corpuscular Volume 95.9 fL (81-99); Mean Platelet Volume 9.2 fL (7.4-10.4); Monocytes # 0.7 10^3/uL (0.2-0.9); Monocytes % 9.1 %; Neutrophils # 5.5 10^3/uL (1.8-7.7); Neutrophils % 70.1 %; Nucleated Red Blood Cells % 0 %; Platelet Count 270 10^3/cmm (130-400); Red Blood Count 3.89 10^6/uL (4.1-5.3); White Blood Count 7.8 10^3/uL (4.0-10.0)
[2020-03-28 05:29] LABS: Alanine Aminotransferase 18 U/L (0-33); Albumin Level 3.8 g/dL (3.5-5.2); Alkaline Phosphatase 98 IU/L (35-105); Anion Gap 13.6 (5-19); Aspartate Amino Transferase 20 U/L (0-32); Blood Urea Nitrogen 18 mg/dL (8-23); Calcium 9.1 mg/dL (8.5-10.5); Carbon Dioxide 24 mmol/L (22-29); Chloride 102 mmol/L (98-107); Globulin 2.9 g/dL (1.3-4.6); Glomerular Filtration Rate 84.8 mL/min (90-130); Glucose 107 mg/dL (65-115); Osmolality Calculated 279 mOsm/kg (285-295); Phosphorus 3.9 mg/dL (2.5-4.5); Potassium 3.6 mmol/L (3.5-5.1); Sodium 136 mmol/L (136-145); Total Bilirubin 0.4 mg/dL (0.15-1.2); Total Protein 6.7 g/dL (6.6-8.7)
[2020-03-28] MEDS: zonisamide 100 MG Capsule 400 MG PO (09:04)
[2020-03-28] MEDS: pantoprazole DR 40 mg Tablet PO (09:04)
[2020-03-28] MEDS: albuterol 8 gm MDI 2 PUFF INHALATION ×4 (09:11→21:25)
[2020-03-28] MEDS: HYDROmorphone 1 mg/mL INJ 1 mL IVP ×3 (09:16→19:49)
[2020-03-28] MEDS: TRAMadol 50 mg Tablet PO (12:11)
--- NOTE | 2020-03-28 14:24 | PM.PN ---
Subjective Subjective: Interval history: Continues to complain of back pain, back pain with minimal range of motion, no fevers, no chills, was able to get up out of bed with physical therapy but has a lot of pain with range of motion Vitals/I&O/Wt Last Vital Signs Temp 98.7 F 03/28/20 11:33 Pulse 89 03/28/20 12:23 Resp 17 03/28/20 13:27 BP 118/75 03/28/20 11:33 Pulse Ox 95 03/28/20 12:23 03/27/20 03/28/20 03/28/20 22:59 06:59 14:59 Intake Total 240 / 590 240 / 830 480 / 480 Output Total 0 / 0 Balance 240 / 590 240 / 830 480 / 480 Physical Exam Const: COMMON NORMALS: no apparent distress and oriented x3 HENMT: COMMON NORMALS: normocephalic HEAD & SCALP: normocephalic Neck/C-Spine: COMMON NORMALS: no JVD Resp: COMMON NORMALS: normal respiratory effort, no retractions, no use of accessory muscles and clear to auscultation bilaterally AUSCULTATION: clear to auscultation bilaterally Cardio: COMMON NORMALS: no JVD, regular rate, regular rhythm, S1 normal heart sound and S2 normal heart sound RATE: regular rate RHYTHM: regular rhythm HEART SOUNDS: S1 normal and S2 normal GI: COMMON NORMALS: normal to inspection, nondistended, normoactive bowel sounds, soft to palpation, non-tender, no hepatosplenomegaly, no masses and no bruits PALPATION: Yes soft and Yes no hepatosplenomegaly Extremity: COMMON NORMALS: normal capillary refill, no clubbing, cyanosis or edema, no calf tenderness and no pedal edema Neuro: COMMON NORMALS: oriented x3 Psych: COMMON NORMALS: mental status grossly normal Data : 03/28/20 04:28 03/28/20 04:28 A&P Assessment and plan (1) Displacement of lumbar disc with radiculopathy: Will admit to general medical floors for pain control Plan: -Dilaudid 1 mg every4 as needed -Tramadol 50 mg every 4 hours as needed -PT OT -Lovenox for DVT prophylaxis -I have spoken to Dr. Watson, n.p.o. midnight, surgical intervention tomorrow morning -Full code -General diet Status: Acute (2) Spinal stenosis of lumbar region with radiculopathy: Status: Acute (3) Intervertebral disc disorder with radiculopathy of lumbosacral region: Status: Chronic Attestations Medical Necessity Statement*: Requires continued hospitalization for intractable back pain, underwent surgical intervention tomorrow Coding Level of Care Code Acute Drill Bit Sharpener for [facility] Fwd Diagnoses Displacement of lumbar disc with radiculopathy M51.16 Spinal stenosis of lumbar region with radiculopathy M48.061; M54.16 Intervertebral disc disorder with radiculopathy of lumbosacral region M51.17
--- NOTE | 2020-03-28 16:00 | P.PN_ITS ---
Subjective Subjective: Interval history: Patient continues to report low back pain and bilateral lower extremity symptoms, right > left. Medications: Reviewed: Yes Vitals/I&O/Wt Last Vital Signs Temp 98.8 F 03/28/20 15:31 Pulse 77 03/28/20 15:31 Resp 16 03/28/20 15:31 BP 127/76 03/28/20 15:31 Pulse Ox 92 03/28/20 15:31 03/28/20 03/28/20 03/28/20 06:59 14:59 22:59 Intake Total 240 / 830 480 / 480 Output Total 0 / 0 Balance 240 / 830 480 / 480 Physical Exam Const: COMMON NORMALS: no apparent distress GENERAL APPEARANCE: cooperative; not comfortable Neck/C-Spine: COMMON NORMALS: supple and no JVD Resp: COMMON NORMALS: normal respiratory effort EFFORT & INSPECTION: Yes able to speak in complete sentences and No tachypneic Cardio: COMMON NORMALS: no JVD Back/Pelvis: LUMBAR SPINE/LOWER BACK: Yes pain with ROM PELVIS: Yes sciatic notch tenderness bilateral Extremity: COMMON NORMALS: no clubbing, cyanosis or edema Neuro: COMMON NORMALS: moves all extremities MOTOR EXAM: strength 5/5 throughout (Bilateral lower extremities, give way weakness related to pain) Psych: COMMON NORMALS: mental status grossly normal and speech normal ATTITUDE: Yes engaged ACTIVITY/MOTOR BEHAVIOR: Yes appropriate eye contact SPEECH: Yes normal speech MOOD & AFFECT: Yes euthymic mood ATTENTION/CONCENTRATION: Yes attention grossly intact Data : 03/28/20 04:28 03/28/20 04:28 MRI: Radiologist's impression: 1. Severe central, subarticular recess and mild bilateral foraminal stenosis at L4-5. New central disc protrusion now encroaching upon the thecal sac with significant impingement resulting in stenosis. 2. Widening with increased fluid in the L4-5 facet joint and acute inflammatory changes surrounding the facet joints at L4-5. 3. Mild central, subarticular recess and foraminal narrowing at L3-4 and L5-S1. 4. Large uterine fibroid. A&P Assessment and plan (1) Displacement of lumbar disc with radiculopathy: Patient continues to experience fluctuating, but intermittently severe, low back pain and bilateral lower extremity symptoms. Symptoms are more prominent on the right than the left. Her activities are severely restricted by pain, in spite of intravenous Dilaudid use. An updated MRI demonstrates progressive disc disease at L4-L5, with associated marked spinal stenosis. Persistent right L3-L4 foraminal narrowing related to disc displacement is also noted. A lengthy discussion occurred with the patient regarding the clinical and radiographic findings. Diagnostic and treatment options were reviewed with the risks, potential benefits, and rationale for each. Questions were answered to her reported satisfaction. Continued conservative management was discussed. This could include medications, physical therapy, and/or pain clinic interventional treatments. Surgical intervention for bilateral L4-L5 hemilaminotomy/discectomy/foraminotomy, possible right L3-L4, was also reviewed. The patient is aware that even surgery does not guarantee relief of symptoms. She understands that surgery carries risks, including the risks of persistent/progressive pain, permanent nerve damage, and even . She requests to proceed with surgery scheduling. The surgery desk was contacted, and surgical intervention tomorrow should be possible. Discussed the surgery option with Dr. Ledbetter, who reported the patient was a reasonable surgical candidate from the medical standpoint. We will tentatively plan for surgery tomorrow. Status: Acute (2) Spinal stenosis of lumbar region with radiculopathy: Status: Acute Attestations Medical Necessity Statement*: Patient is appropriate for in-hospital management of disc herniation related lumbar spinal stenosis, with intractable pain. Coding Level of Care Code Acute Emergency Management Coordinator for Jack Hoffmann Diagnoses Displacement of lumbar disc with radiculopathy M51.16 Spinal stenosis of lumbar region with radiculopathy M48.061; M54.16
[2020-03-28] MEDS: cyclobenzaprine 10 mg Tablet PO (16:52)
[2020-03-28] MEDS: docusate sodium 100 mg Capsule 300 MG PO (19:49)
[2020-03-29] VITALS (17 sets, daily range): BP systolic 100–141; BP diastolic 58–89; PULSE 64–171; RESP 12–24; TEMP 36.4–37.1; O2SAT 91–100
[2020-03-29 02:14] LABS: Basophils % 0.3 %; Eosinophils # 0.1 10^3/uL (0.0-0.8); Eosinophils % 1.6 %; Hematocrit 35.5 % (37.0-47.0); Hemoglobin 11.2 g/dL (11.5-15.3); Lymphocytes # 1.2 10^3/uL (0.8-4.8); Lymphocytes % 15.7 %; Mean Corpuscular HGB Conc 31.5 g/dL (30.0-36.0); Mean Corpuscular Hemoglobin 30.5 pg (28.0-34.0); Mean Corpuscular Volume 96.7 fL (81-99); Monocytes # 0.7 10^3/uL (0.2-0.9); Monocytes % 9.2 %; Neutrophils # 5.5 10^3/uL (1.8-7.7); Neutrophils % 72.9 %; Nucleated Red Blood Cells % 0 %; Platelet Count 250 10^3/cmm (130-400); Red Blood Count 3.67 10^6/uL (4.1-5.3); Red Cell Distribution Width 12.6 % (12.1-15.1); White Blood Count 7.6 10^3/uL (4.0-10.0)
[2020-03-29 02:25] LABS: INR 1.01 (0.8-1.2)
[2020-03-29 02:35] LABS: Alanine Aminotransferase 18 U/L (0-33); Alkaline Phosphatase 99 IU/L (35-105); Anion Gap 14.6 (5-19); Aspartate Amino Transferase 20 U/L (0-32); Blood Urea Nitrogen 16 mg/dL (8-23); Calcium 8.5 mg/dL (8.5-10.5); Carbon Dioxide 25 mmol/L (22-29); Chloride 102 mmol/L (98-107); Globulin 2.4 g/dL (1.3-4.6); Glomerular Filtration Rate 72.7 mL/min (90-130); Glucose 129 mg/dL (65-115); Osmolality Calculated 284 mOsm/kg (285-295); Phosphorus 3.3 mg/dL (2.5-4.5); Potassium 3.6 mmol/L (3.5-5.1); Sodium 138 mmol/L (136-145); Total Bilirubin 0.3 mg/dL (0.15-1.2); Total Protein 6.4 g/dL (6.6-8.7)
[2020-03-29] MEDS: HYDROmorphone 1 mg/mL INJ 1 mL IVP (05:10)
[2020-03-29] MEDS: sodium chloride 0.9% 1,000 ML 30 ML IV (06:51)
--- NOTE | 2020-03-29 07:11 | ANES.PREANE2 ---
Pre-Anesthetic Assessment Pre-Anesthetic Assessment: Height/Weight: Height 1.57 m Weight 72.575 kg Temp Pulse Resp BP Pulse Ox 98.7 F 73 20 H 140/77 93 03/29/20 06:42 03/29/20 06:42 03/29/20 06:42 03/29/20 06:42 03/29/20 06:42 Preop Diagnosis: back pain Proposed Procedure: Operation Date: 03/29/20 08:05 Proposed Procedures p Lumbar Laminectomy 1 Level(Not Applicable) - Umesh Watson MD Familial anesthetic complications: none Was Beta Jackelin taken within 24 hours: N/A Last intake: Intake Last Liquid Date 03/28/20 Last Liquid Time 23:00 Last Solid Date 03/28/20 Last Solid Time 18:00 Social: Social History: No alcohol and No tobacco Comment: former Exam: Pre-Anes Outpt Exam: alert, oriented x 3, clear to auscultation bilaterally and regular rate & rhythm Airway: Cervical ROM: WNL MP: 2 Dentition: False Pulmonary: Pulmonary: Asthma CV/HEM: CV/HEM: None reported : : None reported Hepatic: Hepatic: None reported GI: GI: None reported Metabolic: Metabolic: None reported Musc/skel: Musc/skel: Lower Back Pain Neuropsych: Neuropsych: Neuropathy Anesthetic Plan: ASA status: 2 Anesthesia: General Risk of > 500 ml blood loss (7ml/kg in children): No Meds/Allergies Current Medications: Current Medications Generic Name Dose Route Start Last Admin Trade Name Freq PRN Reason Stop Dose Admin Albuterol Sulfate 2 puff 03/25/20 21:00 03/28/20 21:25 Ventolin INHALATION 2 puff QID.RESPIRATORY S CH Administration Amitriptyline HCl 50 mg 03/25/20 21:00 03/28/20 19:50 Elavil PO 50 mg BEDTIME MARY Administration Cyclobenzaprine HC l 10 mg 03/25/20 20:30 03/28/20 16:52 Flexeril PO 10 mg BID PRN Administration back pain Docusate Sodium 300 mg 03/25/20 21:00 03/28/20 19:49 Colace PO 300 mg BEDTIME MARY Administration Hydromorphone HCl 1 mg 03/27/20 10:02 03/29/20 05:10 Dilaudid Inj IVP 1 mg Q4H PRN Administration SEVERE PAIN Sodium Chloride 1,000 mls @ 30 ml s/hr 03/29/20 06:45 03/29/20 06:51 Sodium Chloride 0.9% IV 03/30/20 06:44 30 mls/hr .Q24H MARY Administration Pantoprazole Sodiu m 40 mg 03/27/20 09:00 03/28/20 09:04 Protonix PO 40 mg DAILY MARY Administration Tramadol HCl 50 mg 03/25/20 20:30 03/28/20 12:11 Ultram PO 50 mg Q4H.RESPIRATORY P RN Administration pain Zonisamide 400 mg 03/26/20 09:00 03/28/20 09:04 Zonegran PO 400 mg DAILY MARY Administration PFSH Anesthesia PFSH: Medical History (Updated 03/25/20 @ 21:24 [place] Klever Del Cid [place] [facility] [place] Cervical disc disorder with myelopathy of mid-cervical region Displacement of lumbar disc with radiculopathy Encounter for long-term opiate analgesic use Intervertebral disc disorder with radiculopathy of lumbosacral region Spinal stenosis of lumbar region with radiculopathy Surgical History History of fusion of cervical spine 03/02/2018 C4-C5, C5-C6 ACDFF, with removal of prior C3-C4 and C6-C7 plate and screw fixation hardware. 06/22/2015 C6-C7 anterior cervical discectomy/fusion/fixation. 03/10/2014 C3-C4 ACDFF. Surgical history of tubal ligation Family History Mother Asthma Father Heart disease Social History Smoking and tobacco status: former smoker Second hand smoke exposure: No Alcohol intake: current Lives independently: Yes Household members: family Housing: House Marital status: / service: No Current occupational status: disabled History of recent travel: No Data Anesthesia CBC & Chem 7: 03/29/20 02:00 03/29/20 02:00 Other Labs: Laboratory Results - last 48 hr 03/28/20 03/28/20 03/29/20 04:28 04:28 02:00 WBC 7.8 7.6 RBC 3.89 L 3.67 L Hgb 11.4 L 11.2 L Hct 37.3 35.5 L MCV 95.9 96.7 MCH 29.3 30.5 MCHC 30.6 31.5 RDW 13.0 12.6 Plt Count 270 250 MPV 9.2 9.0 Neut % (Auto) 70.1 72.9 Lymph % (Auto) 19.0 15.7 [place] % (Auto) 9.1 9.2 Eos % (Auto) 1.3 1.6 Baso % (Auto) 0.4 0.3 Neut # (Auto) 5.5 5.5 Lymph # (Auto) 1.5 1.2 [place] # (Auto) 0.7 0.7 Eos # (Auto) 0.1 0.1 Baso # (Auto) 0.0 0.0 Nucleated RBC % (auto) 0 0 Nucleated RBCs # 0.0 0.0 PT INR Sodium 136 Potassium 3.6 Chloride 102 Carbon Dioxide 24 Anion Gap 13.6 BUN 18 Creatinine 0.7 GFR Calculation 84.8 L Glucose 107 Calculated Osmolality 279 L Calcium 9.1 Phosphorus 3.9 Magnesium 2.0 Total Bilirubin 0.4 AST 20 ALT 18 Alkaline Phosphatase 98 Total Protein 6.7 Albumin 3.8 Globulin 2.9 03/29/20 03/29/20 02:00 02:00 WBC RBC Hgb Hct MCV MCH MCHC RDW Plt Count MPV Neut % (Auto) Lymph % (Auto) [place] % (Auto) Eos % (Auto) Baso % (Auto) Neut # (Auto) Lymph # (Auto) [place] # (Auto) Eos # (Auto) Baso # (Auto) Nucleated RBC % (auto) Nucleated RBCs # PT 13.60 H INR 1.01 Sodium 138 Potassium 3.6 Chloride 102 Carbon Dioxide 25 Anion Gap 14.6 BUN 16 Creatinine 0.8 GFR Calculation 72.7 L Glucose 129 H Calculated Osmolality 284 L Calcium 8.5 Phosphorus 3.3 Magnesium 2.0 Total Bilirubin 0.3 AST 20 ALT 18 Alkaline Phosphatase 99 Total Protein 6.4 L Albumin 4.0 Globulin 2.4 Cardiac Studies: No Data to Display
[2020-03-29] MEDS: vancomycin 1,000 MG in sodium chloride 0.9% 250 ML 250 MG IV (08:05)
--- NOTE | 2020-03-29 08:13 | XR_ITS ---
WS: [id number] INTRAOPERATIVE LATERAL LUMBAR SPINE HISTORY: surgery COMPARISON: 09/03/2019 Lateral radiograph obtained in the OR with a metallic marker indicating the posterior L4-5 disc level . XR/XR lumbar spine 1V [id number] IMPRESSION: Intraoperative planning marker at L4-5 disc level.
--- NOTE | 2020-03-29 08:51 | XR_ITS ---
WS: [id number] INTRAOPERATIVE LATERAL LUMBAR SPINE HISTORY: SURGERY COMPARISON: None available. Lateral radiograph obtained in the OR with a metallic marker indicating the posterior L4-5 disc space with soft tissue spacers. XR/XR lumbar spine 1V [id number] IMPRESSION: Intraoperative planning marker at L4-5 disc level.
[2020-03-29] MEDS: thrombin 5,000 unit SDV 5000 UNIT XX (08:52)
--- NOTE | 2020-03-29 10:49 | PM.OP2 ---
Brief Operative Note: Date of procedure: 03/31/20 Pre-op diagnosis: Lumbar disc displacement with radiculopathy Post-op diagnosis: same Procedure Done: Right L3-L4, L4-L5 hemilaminotomy/discectomy/foraminotomy Surgeon: Umesh Watson Estimated blood loss (mL): 50 Complications: None Post-op Plan: PACU, then alvarez Condition: stable Disposition: PACU Coding Level of Care Code Acute Viscose Cellar Worker for Jack Hoffmann
--- NOTE | 2020-03-29 11:12 | SUR.PHASEI ---
1112- ORAL AIRWAY OUT, SIMPLE MASK IN PLACE AT 6LPM, SAT 100%
[2020-03-29] MEDS: HYDROcodone-acetaminophen 7.5-325 mg Tablet PO ×2 (11:40→16:00)
[2020-03-29] MEDS: lactated ringers 1,000 ML 90 ML IV (11:41)
[2020-03-29] MEDS: HYDROmorphone 1 mg/mL INJ 1 mL 0.5 MG IVP (12:49)
[2020-03-29] MEDS: albuterol 8 gm MDI 2 PUFF INHALATION (13:13)
--- NOTE | 2020-03-29 14:00 | PM.PN ---
Subjective Subjective: Interval history: Patient was seen postoperative, states that she still has some back pain, will like something else for pain, denies chest pain, denies shortness of breath, denies lightheadedness, denies dizziness Vitals/I&O/Wt Last Vital Signs Temp 97.6 F 03/29/20 12:35 Pulse 78 03/29/20 13:35 Resp 16 03/29/20 13:35 BP 123/72 03/29/20 13:35 Pulse Ox 91 03/29/20 13:35 03/28/20 03/29/20 03/29/20 22:59 06:59 14:59 Intake Total 240 / 720 1470 / 1470 Output Total 300 / 300 450 / 750 200 / 200 Balance -60 / 420 -450 / -30 1270 / 1270 Physical Exam Const: COMMON NORMALS: no acute distress and patient oriented x3 Neck/C-Spine: COMMON NORMALS: no JVD Resp: COMMON NORMALS: normal respiratory effort, No retractions, No use of accessory muscles and clear to auscultation bilaterally AUSCULTATION: clear to auscultation bilaterally Cardio: COMMON NORMALS: no JVD, regular rate, regular rhythm, S1 normal heart sound present and S2 normal heart sound present RATE: regular rate RHYTHM: regular rhythm HEART SOUNDS: S1 normal heart sound present and S2 normal heart sound present GI: COMMON NORMALS: Normal to inspection, nondistended, normoactive bowel sounds present, Soft to palpation, non-tender, No hepatosplenomegaly present, no masses and no bruits PALPATION: Yes Soft to palpation and Yes No hepatosplenomegaly present Extremity: COMMON NORMALS: capillary refill normal, no clubbing, cyanosis or edema, no calf tenderness and no pedal edema Neuro: COMMON NORMALS: patient oriented x3 Urinary Catheter Management^: F: Cath Placed During This Visit: yes Urinary Catheter Date of Insertion: 03/29/20 Urinary Catheter Time of Insertion: 08:20 Data : 03/29/20 02:00 03/29/20 02:00 A&P Assessment and plan (1) Displacement of lumbar disc with radiculopathy: Status post discectomy, foraminotomy, Hemilaminotomy by Dr. Watson postoperative day 0 Plan: -Neurosurgery on consult, Dr. 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
[2020-03-29] MEDS: docusate sodium 100 mg Capsule PO (17:07)
[2020-03-29] MEDS: levofloxacin-dextrose 5 % 750 MG/150 ML PREMIX 100 MG IV (17:07)
[2020-03-29] MEDS: ketorolac 30 mg/mL INJ 15 MG IVP (19:36)
--- NOTE | 2020-03-29 20:29 | P.OP_ITS ---
Operative Report Date of procedure: March 29, 2020 Pre-op Diagnosis: Lumbar disc displacement with radiculopathy Pre-op Diagnosis: Lumbar spinal stenosis with radiculopathy Post-op diagnosis: same Procedure Done: Right L3-L4, L4-L5 hemilaminotomy/discectomy/foraminotomy Specimens removed/disposition: L3-L4, L4-L5 disc Pathology: disc fragments Surgeon: Umesh Watson Anesthesia: General Estimated blood loss (mL): 50 IV fluids (mL): 1,100 Urine output (mL): 150 Complications: None. Condition: stable Disposition: PACU Brief History: The patient is a 64-year-old female with known lumbar disc/joint disease. She had failed to respond adequately to conservative management, and was anticipating surgical intervention within the coming weeks. She experienced an acute pain exacerbation that prompted ER presentation and subsequent hospital admission. Imaging studies demonstrated worsening of spinal stenosis at L4-L5 related to progressive disc displacement. Stable right lateral recess/foraminal compromise was also at L3-L4. Symptoms primarily involved the low back and right hip/lower extremity. She noted only limited improvement with in-hospital Physical Therapy, and continued to require intravenous narcotics for pain man agement. After review of the diagnostic and treatment options with the risks/potential benefits/rationale for each, the patient requested to proceed with surgical intervention to address the intractable pain and associated activity limitations. Procedure: After routine preoperative evaluation and informed consent were obtained, the patient was taken to the Operating Room and placed under general endotracheal anesthesia. She was rotated onto the Operating Room table in the modified knee- chest position with the aid of the Cox spine frame. The lumbosacral area was prepared with hair clippers. A proposed midline skin incision was marked with a sterile skin marker. Intraoperative radiography was used for localization purposes. The lumbar/sacral areas were scrubbed with Betadine and prepped with DuraPrep. Sterile towels and drapes were applied, and an [place]an surgical barrier was placed. The proposed incision site was infiltrated with 1% Xylocaine with Epinephrine. A skin incision was made and carried down into the subcutaneous tissues. The lumbodorsal fascia was identified and divided in the midline. A right-sided subperiosteal dissection was carried down along the lamina of L4 and L5. Deep self-retaining retractors were placed. A laminotomy was fashioned at L4-L5 with Leksell and Kerrison rongeurs. Ligamentum flavum was resected at the base of the laminotomy site. Intraoperative radiography verified the desired surgical level. The ligament was undercut across the midline and into the lateral recess. Limited resection of the medial aspect of the facet joint was performed to further the decompression. The thecal sac was retracted with the nerve root retractor. Retraction of the neural elements allowed disc herniation to be addressed with various curettes and pituitary rongeurs. Disc material was removed from within the spinal canal in a subligamentous location and from within the disc space near the substantial annular defect. The retractors were repositioned, and a subperiosteal dissection was carried down across L3-L4. A laminotomy was fashioned with Leksell and Kerrison rongeurs. Ligamentum flavum was resected at the base of the laminotomy site, with extension across the midline and into the lateral recess. A limited resection of the medial aspect of the facet joint was performed to further decompress the lateral recess. The neural foramen was enlarged in its medial extent in a similar manner. After retraction of the thecal sac with a nerve root retractor, a focal lateral recess/subarticular disc herniation was apparent. The disc annulus was incised at the margins of the disc herniation, and discectomy was accomplished utilizing various curettes and pituitary rongeurs. At the completion of the discectomies, no residual neural impingement was appreciated within the central canal, lateral recesses or neuroforamina at the operative sites. The incision was copiously irrigated with sterile saline and antibiotic irrigation. Hemostasis was ensured with the bipolar electrocautery. A thin layer of Surgi-Andres hemostatic matrix was placed over the exposed dura prior to wound closure. Closure consisted of 2-0 Vicryl Plus simple interrupted sutures in the lumbodorsal fascia, superficial fascia, and deep dermis as separate layers. Final skin closure was performed with 3-0 Vicryl Plus in a running subcuticular pattern. Steri-Strips were applied, and a sterile dressing was placed. The patient was then rotated onto the Recovery Room cart in the supine position. She was extubated without incid ent. The patient tolerated the procedure well. All sponge, needle, and instrument counts were correct at the completion of the procedure.
[2020-03-29] MEDS: HYDROcodone-acetaminophen 10-325 mg Tablet PO (21:06)
[2020-03-30] VITALS (14 sets, daily range): BP systolic 112–151; BP diastolic 65–79; PULSE 72–97; RESP 16–20; TEMP 36.8–37.5; O2SAT 91–96
[2020-03-30] MEDS: lactated ringers 1,000 ML 90 ML IV ×2 (01:06→08:29)
[2020-03-30] MEDS: ketorolac 30 mg/mL INJ 15 MG IVP ×3 (01:15→12:39)
[2020-03-30 02:48] LABS: Basophils % 0.1 %; Eosinophils # 0.1 10^3/uL (0.0-0.8); Eosinophils % 1.5 %; Hematocrit 31.9 % (37.0-47.0); Hemoglobin 9.8 g/dL (11.5-15.3); Lymphocytes # 1.7 10^3/uL (0.8-4.8); Lymphocytes % 20.5 %; Mean Corpuscular HGB Conc 30.7 g/dL (30.0-36.0); Mean Corpuscular Hemoglobin 29.7 pg (28.0-34.0); Mean Corpuscular Volume 96.7 fL (81-99); Mean Platelet Volume 9.3 fL (7.4-10.4); Monocytes # 0.8 10^3/uL (0.2-0.9); Monocytes % 9.1 %; Neutrophils # 5.8 10^3/uL (1.8-7.7); Neutrophils % 68.4 %; Nucleated Red Blood Cells % 0 %; Platelet Count 238 10^3/cmm (130-400); Red Cell Distribution Width 12.5 % (12.1-15.1); White Blood Count 8.4 10^3/uL (4.0-10.0)
[2020-03-30 02:55] LABS: Alanine Aminotransferase 23 U/L (0-33); Albumin Level 3.6 g/dL (3.5-5.2); Alkaline Phosphatase 103 IU/L (35-105); Anion Gap 12.8 (5-19); Aspartate Amino Transferase 29 U/L (0-32); Blood Urea Nitrogen 17 mg/dL (8-23); Calcium 8.1 mg/dL (8.5-10.5); Carbon Dioxide 24 mmol/L (22-29); Chloride 105 mmol/L (98-107); Globulin 1.7 g/dL (1.3-4.6); Glomerular Filtration Rate 72.7 mL/min (90-130); Glucose 110 mg/dL (65-115); Magnesium 1.9 mg/dL (1.7-2.3); Osmolality Calculated 283 mOsm/kg (285-295); Phosphorus 2.6 mg/dL (2.5-4.5); Potassium 3.8 mmol/L (3.5-5.1); Sodium 138 mmol/L (136-145); Total Bilirubin 0.2 mg/dL (0.15-1.2); Total Protein 5.3 g/dL (6.6-8.7)
[2020-03-30] MEDS: docusate sodium 100 mg Capsule PO ×2 (08:27→17:17)
[2020-03-30] MEDS: albuterol 8 gm MDI 2 PUFF INHALATION ×2 (08:37→15:22)
[2020-03-30] MEDS: acetaminophen 325 mg Tablet 650 MG PO ×2 (08:38→19:58)
--- NOTE | 2020-03-30 10:21 | P.DS_ITS ---
Discharge Providers Date of Admission: 03/25/20 16:31 Date of Discharge: March 30, 2020 Attending Provider at Admission: Toy Ledbetter MD Attending Provider at Discharge: Toy Ledbetter MD Primary Care Provider: ROME Villagomez Diagnoses at Discharge Discharge Diagnosis (1) Displacement of lumbar disc with radiculopathy: Status: Acute (2) Spinal stenosis of lumbar region with radiculopathy: Status: Acute (3) Intervertebral disc disorder with radiculopathy of lumbosacral region: Status: Chronic Reason for Visit Reason for Visit: Reason For Visit: BACK PAIN Hospital Course Discharge Summary: Camille Dash is a 64 year old female lumbar spinal stenosis, lumbar disc disease with radiculopathy, cervical disc disease with myelopathy, asthma, who presents to the emergency room due to severe intractable back pain. Patient was admitted for displacement of lumbar disc with radiculopathy, received pain control, physical therapy, but patient's pain persisted, MRI of the lumbar spine showed: 1. Severe central, subarticular recess and mild bilateral foraminal stenosis at L4-5. New central disc protrusion now encroaching upon the thecal sac with significant impingement resulting in stenosis. 2. Widening with increased fluid in the L4-5 facet joint and acute inflammatory changes surrounding the facet joints at L4-5. 3. Mild central, subarticular recess and foraminal narrowing at L3-4 and L5-S1. Dr. Watson was consulted, patient had a discectomy, foraminotomy, Hemilaminotomy by Dr. Watson, tolerated this surgery well, discharged to group home for rehab. Physical Exam Const: COMMON NORMALS: no acute distress and patient oriented x3 HENMT: COMMON NORMALS: normocephalic HEAD & SCALP: normocephalic Neck/C-Spine: COMMON NORMALS: no JVD Resp: COMMON NORMALS: normal respiratory effort, No retractions, No use of accessory muscles and clear to auscultation bilaterally AUSCULTATION: clear to auscultation bilaterally Cardio: COMMON NORMALS: no JVD, regular rate, regular rhythm, S1 normal heart sound present and S2 normal heart sound present RATE: regular rate RHYTHM: regular rhythm HEART SOUNDS: S1 normal heart sound present and S2 normal heart sound present GI: COMMON NORMALS: Normal to inspection, nondistended, normoactive bowel sounds present, Soft to palpation, non-tender, No hepatosplenomegaly present, no masses and no bruits PALPATION: Yes Soft to palpation and Yes No hepatosplenomegaly present Extremity: COMMON NORMALS: capillary refill normal, no clubbing, cyanosis or edema, no calf tenderness and no pedal edema Neuro: COMMON NORMALS: patient oriented x3 Psych: COMMON NORMALS: mental status grossly normal Urinary Catheter Management^: F: Cath Placed During This Visit: yes Urinary Catheter Date of Insertion: 03/29/20 Urinary Catheter Time of Insertion: 08:20 Discharge Data Data Completed and Pending: Completed Studies During Hospitalization Category Date Time Status XR lumbar spine 1 V [id number] Routine Exams 03/29/20 08:13 Completed XR lumbar spine 1 V Routine Exams 03/29/20 08:51 Completed MR lumbar spine w o con* [id number] Routi ne MRI 03/27/20 10:54 Completed Pending at discharge Category Date Time Status Complete Blood Co unt w/Auto AM LABS Lab 03/31/20 04:00 Ordered Comprehensive Met abolic Panel AM LA BS Lab 03/31/20 04:00 Ordered Magnesium AM LABS Lab 03/31/20 04:00 Ordered Phosphorus AM LAB S Lab 03/31/20 04:00 Ordered Pathology: Surgic al [PTH] Routine Pth 03/29/20 11:07 Received Labs from last 24 hours 03/30/20 03/30/20 02:08 02:08 WBC 8.4 RBC 3.30 L Hgb 9.8 L Hct 31.9 L MCV 96.7 MCH 29.7 MCHC 30.7 RDW 12.5 Plt Count 238 MPV 9.3 Neut % (Auto) 68.4 Lymph % (Auto) 20.5 [place] % (Auto) 9.1 Eos % (Auto) 1.5 Baso % (Auto) 0.1 Neut # (Auto) 5.8 Lymph # (Auto) 1.7 [place] # (Auto) 0.8 Eos # (Auto) 0.1 Baso # (Auto) 0.0 Nucleated RBC % (a uto) 0 Nucleated RBCs # 0.0 Sodium 138 Potassium 3.8 Chloride 105 Carbon Dioxide 24 Anion Gap 12.8 BUN 17 Creatinine 0.8 GFR Calculation 72.7 L Glucose 110 Calculated Osmolal ity 283 L Calcium 8.1 L Phosphorus 2.6 Magnesium 1.9 Total Bilirubin 0.2 AST 29 ALT 23 Alkaline Phosphata se 103 Total Protein 5.3 L Albumin 3.6 Globulin 1.7 Vitals: Last Vital Signs Temp 99.5 F 03/30/20 08:00 Pulse 97 03/30/20 08:40 Resp 18 03/30/20 08:38 BP 126/65 03/30/20 08:00 Pulse Ox 95 03/30/20 08:38 Discharge Plan Discharge Patient Disposition: Xfer SNF Condition: Stable Prescriptions: Continued amitriptyline 50 mg tablet 50 mg PO BEDTIME Qty: 90 RF: 0 albuterol sulfate 2.5 mg /3 mL (0.083 %) solution for nebulization See Rx Instructions .ROUTE .COMPLEX Qty: 180 RF: 0 albuterol sulfate [ProAir HFA] 90 mcg/actuation HFA aerosol inhaler 2 inh INHALATION QID Qty: 18 RF: 0 zonisamide 100 mg Capsule 400 mg PO DAILY RF: 0 multivitamin Capsule 1 cap PO DAILY RF: 0 vitamin B complex [Super B-50 Complex] Capsule 1 cap PO DAILY RF: 0 Prevagen 1 cap PO DAILY RF: 0 biotin 5 mg Tablet 5 mg PO DAILY RF: 0 ProAir HFA 90 mcg/actuation Hfa Aerosol Inhaler 2 puff INHALATION QID PRN (Reason: Shortness Of Breath) RF: 0 Discontinued hydrocodone-acetaminophen 5-325 mg tablet 1 tab PO TID PRN (Reason: pain) 30 Days Qty: 90 RF: 0 Tylenol Cold Head Congest Sevr 5-325-200 mg Tablet 2 tab PO Q6H PRN (Reason: Congestion) RF: 0 No Action docusate sodium [Colace] 100 mg Capsule 300 mg PO BEDTIME RF: 0 Discharge Diet: Cardiac Discharge Activity: As per PT/OT instructions Coding Level of Care Code Acute Research 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
--- NOTE | 2020-03-30 10:55 | PC.SOCIAL ---
IMM Updated Updated pt on Pg 2 IMM. She verbally understands. No questions voiced. Provided pt a copy & left on pt's bedside table. Signed, dated, & timed the copy in pt's chart.
--- NOTE | 2020-03-30 11:33 | PC.CHAP ---
Pastoral Care Encounter/Spiritual Assessment Type of Contact [x] Declined cad designer visit [] Patient/Family/Request visit [] Outpatient visit [] Follow-up visit [] Physician referral [] Code/Alert [x] Routine visit [] Staff referral [] Actively dying [] Patient sleeping [] Family support [] [] Out of room [] Palliative care [] [] Receiving care in room [] Pre-surgical visit [] Trauma [] Long length of stay [] ICU visit [] Other: Relational/Emotional Strength [] Patient feels connected with others/family/visitors/staff [] Distress [] Loneliness/isolation [] Abandonment Spirituality of Patient [] Person of Letitia [] Attends Zoroastrianism of their Letitia [] Believes in Prayer [] Reads Bible or Druze materials [] There are Spiritual issues to be addressed Jewelry Maker Interventions [] Prayer [] Active listening [] Non-anxious presence [] Spiritual/emotional support [] Crisis/trauma care [] Spiritual counseling [] Bereavement support [] Provided bereavement packet [] Provided Bible/devotional materials [] Provided toy/stuffed animal, coloring book to patient or family member [] Provided Communion [] Anointing/Moran [] Salvation [] Completed spiritual assessment [] Other: Impact on Illness or Injury [] Angry [] Fearful [] Anxious [] Often cries [] Exhaustion [] Unable to work [] Unable to attend hindu [] Unable to walk/stand [] Unable to read [] Unable to drive [] Unable to eat/drink [] Unable to sleep [] Unable to be with family [] Patient intubated [] Other: Summary Patient stated that she was fine and did not desire a visit. Time spent with patient
--- NOTE | 2020-03-30 14:18 | PM.PN ---
Subjective Subjective: Interval history: This morning patient has some back pain complaints, but improving, no fevers overnight, no chills, no nausea, no vomiting, no lightheadedness, no dizziness, no shortness of breath, no dysuria, no calf pain, no calf swelling Vitals/I&O/Wt Last Vital Signs Temp 98.2 F 03/30/20 11:28 Pulse 87 03/30/20 11:28 Resp 20 H 03/30/20 11:28 BP 122/73 03/30/20 11:28 Pulse Ox 94 03/30/20 11:28 03/29/20 03/30/20 03/30/20 22:59 06:59 14:59 Intake Total 1220 / 2690 240 / 2930 664.5 / 664.5 Output Total 850 / 1050 200 / 200 Balance 370 / 1640 240 / 1880 464.5 / 464.5 Physical Exam Const: COMMON NORMALS: no acute distress and patient oriented x3 HENMT: COMMON NORMALS: normocephalic HEAD & SCALP: normocephalic Neck/C-Spine: COMMON NORMALS: no JVD Resp: COMMON NORMALS: normal respiratory effort, No retractions, No use of accessory muscles and clear to auscultation bilaterally AUSCULTATION: clear to auscultation bilaterally Cardio: COMMON NORMALS: no JVD, regular rate, regular rhythm, S1 normal heart sound present and S2 normal heart sound present RATE: regular rate RHYTHM: regular rhythm HEART SOUNDS: S1 normal heart sound present and S2 normal heart sound present GI: COMMON NORMALS: Normal to inspection, nondistended, normoactive bowel sounds present, Soft to palpation, non-tender, No hepatosplenomegaly present, no masses and no bruits PALPATION: Yes Soft to palpation and Yes No hepatosplenomegaly present Extremity: COMMON NORMALS: capillary refill normal, no clubbing, cyanosis or edema, no calf tenderness and no pedal edema Neuro: COMMON NORMALS: patient oriented x3 Psych: COMMON NORMALS: mental status grossly normal Urinary Catheter Management^: F: Cath Placed During This Visit: yes Urinary Catheter Date of Insertion: 03/29/20 Urinary Catheter Time of Insertion: 08:20 Data : 03/30/20 02:08 03/30/20 02:08 A&P Assessment and plan (1) Displacement of lumbar disc with radiculopathy: Status post discectomy, foraminotomy, Hemilaminotomy by Dr. Watson postoperative day 0 1 Plan: -Neurosurgery on consult, Dr. 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
[2020-03-30] MEDS: HYDROcodone-acetaminophen 10-325 mg Tablet PO ×2 (14:29→18:32)
[2020-03-30] MEDS: enoxaparin 40 mg/0.4 mL Syringe SUBCUT (14:30)
[2020-03-30] MEDS: cyclobenzaprine 10 mg Tablet PO (15:06)
--- NOTE | 2020-03-30 17:00 | CTR_ITS ---
PROCEDURE INFORMATION: Exam: CT Lumbar Spine Without Contrast Exam date and time: 03/30/2020 5:42 PM Age: 64 years old Clinical indication: Prior surgery; Patient HX: Severe low back pain after having lumbar scraping on 03/29/2020. ; Additional info: Back and limb pain, postop day #1 TECHNIQUE: Imaging protocol: Computed tomography images of the lumbar spine without contrast. Radiation optimization: All CT scans at this facility use at least one of these dose optimization techniques: automated exposure control; mA and/or kV adjustment per patient size (includes targeted exams where dose is matched to clinical indication); or iterative reconstruction. COMPARISON: CR XR lumbar spine 1V [id number] 03/29/2020 8:52 AM RADIATION DOSE METRICS: Total DLP: 1442.97 mGy-cm FINDINGS: Vertebrae: No acute fracture. Normal alignment. L1-L2: Unremarkable. L2-L3: There is mild posterior disc bulging without focal herniation. L3-L4: There is partial laminectomy on the right side and evidence of discectomy with air within the disc space which is an expected finding postop. L4-L5: There is decreased height of the disc space with air within the intervertebral disc and right-sided partial laminectomy. L5-S1: There is decreased height of the disc space and diffuse posterior disc bulging as well as some hypertrophic degenerative change in the facet joints bilaterally. Gallbladder and bile ducts: Multiple calcified gallstones are present. Reproductive: There is partial visualization of large calcified fibroids. Vasculature: There are atherosclerotic changes in the abdominal aorta without evidence of aneurysm. Soft tissues: There is some air in the subcutaneous posterior soft tissues consistent with recent surgery. There are bubbles of gas seen posterior to the vertebral bodies from the L1 through L4 levels. This most likely represents some epidural bubbles of gas and this is not unusual immediately post spinal surgery. CT/CT lumbar spine wo con* [id number] IMPRESSION: Degenerative disc changes with findings of very recent laminectomy and discectomy at L3-L4 and L4-L5. Radiation Dose CTDIVOL = (mGy): DLP = 1442.97 (mGy-cm)
--- NOTE | 2020-03-30 17:04 | P.PN_ITS ---
Subjective Subjective: Interval history: Patient reports back and leg pain that developed last night. She requests some real strong pain medicine. Vitals/I&O/Wt Last Vital Signs Temp 98.8 F 03/30/20 16:00 Pulse 86 03/30/20 16:00 Resp 20 H 03/30/20 16:00 BP 145/79 03/30/20 16:00 Pulse Ox 91 03/30/20 16:00 03/30/20 03/30/20 03/30/20 06:59 14:59 22:59 Intake Total 240 / 2930 664.5 / 664.5 Output Total 200 / 200 150 / 350 Balance 240 / 1880 464.5 / 464.5 -150 / 314.5 Physical Exam Const: COMMON NORMALS: alert GENERAL APPEARANCE: cooperative; not comfortable Resp: COMMON NORMALS: normal respiratory effort EFFORT & INSPECTION: Yes able to speak in complete sentences and No tachypneic Back/Pelvis: LUMBAR SPINE/LOWER BACK: Yes normal to inspection Extremity: COMMON NORMALS: no clubbing, cyanosis or edema Neuro: SENSORIUM/ORIENTATION: Yes alert MOTOR EXAM: Abnormal motor strength present (marked giveway weakness in bilateral lower extremities (pain/spasms)) Psych: COMMON NORMALS: speech normal ATTITUDE: Yes Other attitude/behavior findings present (Psych) (appears to be in pain) SPEECH: Yes normal speech MOOD & AFFECT: Yes anxious ATTENTION/CONCENTRATION: Yes attention grossly intact Skin: WOUNDS: Yes surgical site (lumbar surgical site dressing C/D/I) Urinary Catheter Management^: F: Cath Placed During This Visit: yes Urinary Catheter Date of Insertion: 03/29/20 Urinary Catheter Time of Insertion: 08:20 Data : 04/02/20 05:42 04/02/20 05:42 A&P Assessment and plan (1) Displacement of lumbar disc with radiculopathy: Patient has had significant pain escalation since the prior PM postop assessment, when she appeared comfortable and was transferring unassisted. Her pain now appears more severe than prior to surgery. She feels this is related to pain medication that is not strong enough. The patient's early postop relapse in severe pain is not typical. Recommended a lumbar CT to evaluate anatomic status at surgical sites. Recurrent disc herniation would be a pos sibility. She received a Lovenox dose this afternoon, and a deep surgical site hematoma would also be possible. If imaging does not demonstrate a clear symptom source, medication adjustment and continued monitoring may be appropriate. Recommend holding anticoagulation in this early postop laminectomy patient. Status: Resolved (2) Spinal stenosis of lumbar region with radiculopathy: Status: Resolved (3) History of lumbar laminectomy: Status: Resolved Attestations Medical Necessity Statement*: Patient is appropriate for in-hospital management of disc herniation related lumbar spinal stenosis, with intractable pain. 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
[2020-03-30] MEDS: HYDROmorphone 1 mg/mL INJ 1 mL 0.5 MG IVP (17:21)
[2020-03-30] MEDS: HYDROmorphone 1 mg/mL INJ 1 mL IVP (21:16)
[2020-03-31] VITALS (13 sets, daily range): BP systolic 100–154; BP diastolic 69–82; PULSE 68–90; RESP 16–22; TEMP 36.8–37.2; O2SAT 90–96
[2020-03-31] MEDS: cyclobenzaprine 10 mg Tablet PO (00:42)
[2020-03-31] MEDS: HYDROcodone-acetaminophen 10-325 mg Tablet 1 TAB PO ×5 (00:42→21:31)
[2020-03-31] MEDS: lactated ringers 1,000 ML 90 ML IV ×3 (00:43→23:09)
[2020-03-31] MEDS: HYDROmorphone 1 mg/mL INJ 1 mL IVP ×4 (02:51→18:37)
[2020-03-31 03:51] LABS: Basophils % 0.3 %; Eosinophils % 0.3 %; Hematocrit 33.4 % (37.0-47.0); Hemoglobin 10.4 g/dL (11.5-15.3); Lymphocytes # 0.7 10^3/uL (0.8-4.8); Lymphocytes % 6.1 %; Mean Corpuscular HGB Conc 31.1 g/dL (30.0-36.0); Mean Corpuscular Hemoglobin 30.3 pg (28.0-34.0); Mean Corpuscular Volume 97.4 fL (81-99); Mean Platelet Volume 9.3 fL (7.4-10.4); Monocytes # 0.5 10^3/uL (0.2-0.9); Neutrophils # 10.1 10^3/uL (1.8-7.7); Neutrophils % 88.9 %; Nucleated Red Blood Cells % 0 %; Platelet Count 270 10^3/cmm (130-400); Red Blood Count 3.43 10^6/uL (4.1-5.3); Red Cell Distribution Width 12.6 % (12.1-15.1); White Blood Count 11.4 10^3/uL (4.0-10.0)
[2020-03-31 04:05] LABS: Alanine Aminotransferase 27 U/L (0-33); Albumin Level 3.6 g/dL (3.5-5.2); Alkaline Phosphatase 129 IU/L (35-105); Anion Gap 17.8 (5-19); Aspartate Amino Transferase 28 U/L (0-32); Blood Urea Nitrogen 12 mg/dL (8-23); Calcium 8.6 mg/dL (8.5-10.5); Carbon Dioxide 21 mmol/L (22-29); Chloride 104 mmol/L (98-107); Creatinine Clr Calc Pharmacy 90.6867; Globulin 2.9 g/dL (1.3-4.6); Glomerular Filtration Rate 101.3 mL/min (90-130); Glucose 101 mg/dL (65-115); Magnesium 1.8 mg/dL (1.7-2.3); Osmolality Calculated 284 mOsm/kg (285-295); Phosphorus 3.1 mg/dL (2.5-4.5); Potassium 3.8 mmol/L (3.5-5.1); Sodium 139 mmol/L (136-145); Total Bilirubin 0.4 mg/dL (0.15-1.2); Total Protein 6.5 g/dL (6.6-8.7)
[2020-03-31] MEDS: albuterol 8 gm MDI 2 PUFF INHALATION ×2 (07:53→20:24)
[2020-03-31] MEDS: docusate sodium 100 mg Capsule PO ×2 (08:29→18:27)
--- NOTE | 2020-03-31 13:46 | PC.NURSE ---
PT REFUSED SCDs THIS SHIFT. PT EDUCATED ON THE IMPORTANCE AND PREVENTIVE MEASURES OF WEARING THE SCDs. PT STILL REFUSED.
--- NOTE | 2020-03-31 14:15 | PM.PN ---
Subjective Subjective: Interval history: Overnight patient continued to have significant episodes of pain, not went well controlled with oral medication, switch over to IV Dilaudid, has pain with range of motion, is difficult to work with physical therapy Vitals/I&O/Wt Last Vital Signs Temp 98.8 F 03/31/20 11:55 Pulse 84 03/31/20 11:55 Resp 19 H 03/31/20 11:55 BP 100/71 03/31/20 11:55 Pulse Ox 93 03/31/20 11:55 03/30/20 03/31/20 03/31/20 22:59 06:59 14:59 Intake Total 1340 / 2004.5 1231.5 / 1231.5 Output Total 150 / 350 350 / 700 150 / 150 Balance 1190 / 1654.5 -350 / 1304.5 1081.5 / 1081.5 Physical Exam Const: COMMON NORMALS: no acute distress and patient oriented x3 HENMT: COMMON NORMALS: normocephalic HEAD & SCALP: normocephalic Neck/C-Spine: COMMON NORMALS: no JVD Resp: COMMON NORMALS: normal respiratory effort, No retractions, No use of accessory muscles and clear to auscultation bilaterally AUSCULTATION: clear to auscultation bilaterally Cardio: COMMON NORMALS: no JVD, regular rate, regular rhythm, S1 normal heart sound present and S2 normal heart sound present RATE: regular rate RHYTHM: regular rhythm HEART SOUNDS: S1 normal heart sound present and S2 normal heart sound present GI: COMMON NORMALS: Normal to inspection, nondistended, normoactive bowel sounds present, Soft to palpation, non-tender, No hepatosplenomegaly present, no masses and no bruits PALPATION: Yes Soft to palpation and Yes No hepatosplenomegaly present Extremity: COMMON NORMALS: capillary refill normal, no clubbing, cyanosis or edema, no calf tenderness and no pedal edema Neuro: COMMON NORMALS: patient oriented x3 Psych: COMMON NORMALS: mental status grossly normal Urinary Catheter Management^: F: Cath Placed During This Visit: yes Urinary Catheter Date of Insertion: 03/29/20 Urinary Catheter Time of Insertion: 08:20 Data : 03/31/20 03:17 03/31/20 03:17 A&P Assessment and plan (1) Displacement of lumbar disc with radiculopathy: -Status post discectomy, foraminotomy, Hemilaminotomy by Dr. Watson postoperative day 2 -As patient had continued pain, repeat CT scan of the lumbar spine was ordered, showed no acute findings Plan: -Neurosurgery on consult, Dr. Watson -Coby and Dilaudid for pain -Encourage PT OT -Dr. Watson prefers SCDs for DVT prophylaxis, patient refuses to wear SCDs, advised the risks of DVTs and PEs given her immobility, patient accepts the risk, -Full code -General diet -Has been accepted to a fdc, will likely be transferred there tomorrow Status: Acute (2) Spinal stenosis of lumbar region with radiculopathy: Status: Acute (3) Intervertebral disc disorder with radiculopathy of lumbosacral region: Status: Chronic Attestations Medical Necessity Statement*: Patient requires hospitalization, for back pain status post surgical intervention, continued postoperative pain Coding Level of Care Code Acute Assistant Signal Maintainer for [facility] Fwd Diagnoses Displacement of lumbar disc with radiculopathy M51.16 Spinal stenosis of lumbar region with radiculopathy M48.061; M54.16 Intervertebral disc disorder with radiculopathy of lumbosacral region M51.17
--- NOTE | 2020-03-31 20:54 | P.PN_ITS ---
Subjective Subjective: Interval history: Better . Still complains of back pain and R > L lower extremity spasms with activity/position changes. Vitals/I&O/Wt Last Vital Signs Temp 98.4 F 03/31/20 20:00 Pulse 68 03/31/20 20:25 Resp 18 03/31/20 20:25 BP 138/82 03/31/20 20:00 Pulse Ox 94 03/31/20 20:25 03/31/20 03/31/20 03/31/20 06:59 14:59 22:59 Intake Total 1231.5 / 1231.5 120 / 1351.5 Output Total 350 / 700 150 / 150 Balance -350 / 1304.5 1081.5 / 1081.5 120 / 1201.5 Physical Exam Const: GENERAL APPEARANCE: cooperative; not comfortable Neck/C-Spine: COMMON NORMALS: supple Resp: COMMON NORMALS: normal respiratory effort EFFORT & INSPECTION: Yes able to speak in complete sentences and No tachypneic Extremity: COMMON NORMALS: no clubbing, cyanosis or edema Neuro: COMMON NORMALS: moves all extremities MOTOR EXAM: 5/5 motor strength present throughout (No focal lower extremity weaknesses is identified, although exam is limited by diffuse pain related giveaway weakness.) Psych: COMMON NORMALS: cooperative and speech normal ATTITUDE: Yes engaged ACTIVITY/MOTOR BEHAVIOR: Yes appropriate eye contact SPEECH: Yes normal speech MOOD & AFFECT: Yes anxious ATTENTION/CONCENTRATION: Yes attention grossly intact Skin: WOUNDS: Yes surgical site (Lumbar surgical site dressing clean/dry/intact. ) Urinary Catheter Management^: F: Cath Placed During This Visit: yes Urinary Catheter Date of Insertion: 03/29/20 Urinary Catheter Time of Insertion: 08:20 Data : 04/02/20 05:42 04/02/20 05:[address]: Radiologist's impression: IMPRESSION: Degenerative disc changes with findings of very recent laminectomy and discectomy at L3-L4 and L4-L5. A&P Assessment and plan (1) Displacement of lumbar disc with radiculopathy: Patient is now POD#2 after a right L3-L4, L4-L5 laminotomy/discectomy. She experienced significant pain escalation that began 12-24 hours postop. She appeared comfortable and was transferring unassisted at my followup visit with her on the evening of surgery. A CT was performed to evaluate for an anatomic source of the recurrent severe pain. The CT demonstrated recent postoperative changes, but no clear source for the pain escalation. Pain medications were adjusted, and a Medrol Dosepak was initiated. Her pain has improved, since yesterday, but continues to interfere with physical therapy and mobilization. An MRI was planned for this morning, if significant improvement was not obtained. She felt that improvement had occurred, and declined additional evaluation with MRI (which she felt would only worsen her pain). Discussed case with Dr. Campos by phone and in person. Plan continued inpatient monitoring, daily physical therapy, and medication management. She is at risk of epidural hematoma, if anticoagulated at this point. She is at risk of DVT/PE as her activity is restricted by pain, and she declines mechanical DVT prophylaxis. These risks were discussed in detail with the patient. Recommend avoiding anticoagulation, for now. Anticipate gradual improvement, and eventual senior care facility placement when a bed and transportation are available. She will need Neurosurgery outpatient followup in 2 weeks. I will continue to follow her during her hospital stay. Status: Resolved (2) Spinal stenosis of lumbar region with radiculopathy: Status: Resolved (3) History of lumbar laminectomy: Status: Resolved Attestations Medical Necessity Statement*: Patient is appropriate for in-hospital management of disc herniation related lumbar spinal stenosis, with intractable pain. Coding Level of Care Code Acute Manager Strategic Development for [facility] Fwd Exam Detailed Diagnoses Displacement of lumbar disc with radiculopathy M51.16 Spinal stenosis of lumbar region with radiculopathy M48.061; M54.16 History of lumbar laminectomy Z98.890 Comment postop global
[2020-03-31] MEDS: magnesium hydroxide 30 mL UDC PO (21:35)
[2020-04-01] VITALS (10 sets, daily range): BP systolic 128–166; BP diastolic 60–82; PULSE 71–88; RESP 14–20; TEMP 36.6–36.9; O2SAT 92–96
[2020-04-01] MEDS: HYDROcodone-acetaminophen 10-325 mg Tablet 1 TAB PO ×3 (03:16→20:27)
[2020-04-01 06:01] LABS: Basophils % 0.2 %; Eosinophils # 0.1 10^3/uL (0.0-0.8); Eosinophils % 0.7 %; Hematocrit 32.6 % (37.0-47.0); Hemoglobin 10.1 g/dL (11.5-15.3); Lymphocytes % 19.5 %; Mean Corpuscular Hemoglobin 29.7 pg (28.0-34.0); Mean Corpuscular Volume 95.9 fL (81-99); Mean Platelet Volume 9.5 fL (7.4-10.4); Monocytes # 0.8 10^3/uL (0.2-0.9); Monocytes % 7.5 %; Neutrophils # 7.3 10^3/uL (1.8-7.7); Neutrophils % 71.7 %; Nucleated Red Blood Cells % 0 %; Platelet Count 309 10^3/cmm (130-400); Red Cell Distribution Width 12.5 % (12.1-15.1); White Blood Count 10.2 10^3/uL (4.0-10.0)
[2020-04-01] MEDS: HYDROmorphone 1 mg/mL INJ 1 mL IVP ×2 (06:12→16:32)
[2020-04-01 06:17] LABS: Alanine Aminotransferase 29 U/L (0-33); Albumin Level 3.5 g/dL (3.5-5.2); Alkaline Phosphatase 133 IU/L (35-105); Anion Gap 15.9 (5-19); Aspartate Amino Transferase 32 U/L (0-32); Blood Urea Nitrogen 9 mg/dL (8-23); Calcium 9.3 mg/dL (8.5-10.5); Carbon Dioxide 25 mmol/L (22-29); Chloride 104 mmol/L (98-107); Creatinine Clr Calc Pharmacy 108.8241; Globulin 3.1 g/dL (1.3-4.6); Glucose 105 mg/dL (65-115); Magnesium 2.1 mg/dL (1.7-2.3); Osmolality Calculated 288 mOsm/kg (285-295); Phosphorus 2.9 mg/dL (2.5-4.5); Potassium 3.9 mmol/L (3.5-5.1); Sodium 141 mmol/L (136-145); Total Bilirubin 0.2 mg/dL (0.15-1.2); Total Protein 6.6 g/dL (6.6-8.7)
[2020-04-01] MEDS: docusate sodium 100 mg Capsule PO ×2 (10:12→17:31)
[2020-04-01] MEDS: lactated ringers 1,000 ML 90 ML IV ×2 (10:25→21:48)
[2020-04-01] MEDS: magnesium hydroxide 30 mL UDC PO (10:44)
[2020-04-01] MEDS: cyclobenzaprine 10 mg Tablet PO ×2 (11:29→21:48)
--- NOTE | 2020-04-01 11:32 | PC.SOCIAL ---
*IMM given (updated) to the patient, original in the chart signed, copy gave to the patient.
--- NOTE | 2020-04-01 19:42 | P.PN_ITS ---
Subjective Subjective: Interval history: No acute events overnight. On examination patient was lying comfortably in bed. States her pain is better than yesterday but still intermittently going as high as 7. As per the nurse patient is not requiring/asking for as much pain medication as yesterday. Examination patient denies of having any nausea, vomiting, headache, dizziness, tingling or numbness in his feet. Vitals/I&O/Wt Last Vital Signs Temp 98.1 F 04/01/20 16:00 Pulse 88 04/01/20 16:00 Resp 17 04/01/20 16:32 BP 136/81 04/01/20 16:00 Pulse Ox 95 04/01/20 16:00 04/01/20 04/01/20 04/01/20 06:59 14:59 22:59 Intake Total 1360 / 1360 360 / 1720 Output Total 300 / 1350 600 / 600 400 / 1000 Balance -300 / 1001.5 760 / 760 -40 / 720 Physical Exam Const: COMMON NORMALS: no acute distress and patient oriented x3 GENERAL APPEARANCE: cooperative and comfortable HENMT: COMMON NORMALS: normocephalic HEAD & SCALP: normocephalic Eye: COMMON NORMALS: Equal, round and reactive pupils present and no papilledema GENERAL EYE: appearance normal, both eyes and all related structures PUPIL: Yes Equal, round and reactive pupils present DIRECT OPHTHALMOSCOPY: Yes no papilledema Neck/C-Spine: COMMON NORMALS: full ROM, no lymphadenopathy, no JVD and Thyroid normal THYROID: Thyroid normal Lymph: LYMPHATIC: no lymphadenopathy noted Resp: COMMON NORMALS: normal respiratory effort, No retractions, No use of accessory muscles and clear to auscultation bilaterally AUSCULTATION: clear to auscultation bilaterally Cardio: COMMON NORMALS: no JVD, regular rate, regular rhythm, S1 normal heart sound present, S2 normal heart sound present, No gallops present (Cardio), No clicks present (Cardio) and No murmurs present (Cardio) RATE: regular rate RHYTHM: regular rhythm HEART SOUNDS: S1 normal heart sound present and S2 normal heart sound present GI: COMMON NORMALS: Normal to inspection, nondistended, normoactive bowel sounds present, Soft to palpation, non-tender, No hepatosplenomegaly present, no masses and no bruits PALPATION: Yes Soft to palpation and Yes No hepatospl enomegaly present Back/Pelvis: LUMBAR SPINE/LOWER BACK: Yes normal to inspection, Yes ROM limited, Yes lumbar spinal tenderness, Yes paraspinal muscle tenderness and Yes paraspinal muscle spasm Extremity: COMMON NORMALS: normal to inspection, full ROM, capillary refill no rmal, no clubbing, cyanosis or edema, no calf tenderness and no pedal edema Neuro: COMMON NORMALS: patient oriented x3, CN's II-XII intact bilaterally and moves all extremities OTHER: Exam limited due to pain. Psych: COMMON NORMALS: mental status grossly normal, Normal thought process present and cooperative THOUGHT PROCESS: Normal thought process present Urinary Catheter Management^: F: Cath Placed During This Visit: yes Urinary Catheter Date of Insertion: 03/29/20 Urinary Catheter Time of Insertion: 08:20 Data : 04/01/20 05:28 04/01/20 05:28 A&P Assessment and plan (1) Displacement of lumbar disc with radiculopathy: Status post discectomy, foraminotomy, Hemilaminotomy by Dr. Watson postoperative day [address] scan of the lumbar spine showed no acute findings. Plan: Case discussed with Dr. Watson. Recommendations greatly appreciated. [place] every 6 hours as needed for pain. Will discontinue Dilaudid. Encouraged PT/OT. Continue Medrol pack. Patient will need gradual de-escalation as per the pack. Patient will need to follow-up with Dr. Watson in the next 2 weeks. Patient would most likely need discharge to SNF given severe deconditioning. Patient is agreeable to same. No therapeutic anticoagulation to prevent from spinal hematoma given recent laminectomy. Status: Acute (2) Spinal stenosis of lumbar region with radiculopathy: Status: Acute (3) Intervertebral disc disorder with radiculopathy of lumbosacral region: Status: Chronic (4) Encounter for long-term opiate analgesic use: Status: Chronic Additional A&P Information Full code. SCDs for DVT prophylaxis. Regular diet. If patient continues to the same day we will plan to discharge tomorrow to SNF. Patient has been accepted at [facility]. Attestations Medical Necessity Statement*: Postop management for laminectomy, pain control Time Spent in Patient Care: 16 - 35 minutes Coding Level of Care Code Acute Operations And Maintenance Manager for [facility] [place] Diagnoses Displacement of lumbar disc with radiculopathy M51.16 Spinal stenosis of lumbar region with radiculopathy M48.061; M54.16 Intervertebral disc disorder with radiculopathy of lumbosacral region M51.17 Encounter for long-term opiate analgesic use Z79.891
[2020-04-01] MEDS: albuterol 8 gm MDI 2 PUFF INHALATION (20:41)
[2020-04-02] VITALS (7 sets, daily range): BP systolic 148–173; BP diastolic 66–96; PULSE 63–82; RESP 16–20; TEMP 36.6–36.9; O2SAT 94–96
[2020-04-02] MEDS: HYDROcodone-acetaminophen 10-325 mg Tablet 1 TAB PO ×4 (00:27→15:46)
[2020-04-02] MEDS: acetaminophen 325 mg Tablet 650 MG PO (02:57)
[2020-04-02 06:00] LABS: Basophils % 0.4 %; Eosinophils # 0.1 10^3/uL (0.0-0.8); Eosinophils % 1.5 %; Hematocrit 32.8 % (37.0-47.0); Hemoglobin 10.4 g/dL (11.5-15.3); Lymphocytes # 2.2 10^3/uL (0.8-4.8); Lymphocytes % 27.8 %; Mean Corpuscular HGB Conc 31.7 g/dL (30.0-36.0); Mean Corpuscular Hemoglobin 30.5 pg (28.0-34.0); Mean Corpuscular Volume 96.2 fL (81-99); Mean Platelet Volume 9.1 fL (7.4-10.4); Monocytes # 0.5 10^3/uL (0.2-0.9); Monocytes % 6.6 %; Neutrophils # 4.9 10^3/uL (1.8-7.7); Neutrophils % 63.4 %; Nucleated Red Blood Cells % 0 %; Platelet Count 340 10^3/cmm (130-400); Red Blood Count 3.41 10^6/uL (4.1-5.3); Red Cell Distribution Width 12.5 % (12.1-15.1); White Blood Count 7.8 10^3/uL (4.0-10.0)
[2020-04-02 06:23] LABS: Alanine Aminotransferase 33 U/L (0-33); Albumin Level 3.7 g/dL (3.5-5.2); Alkaline Phosphatase 126 IU/L (35-105); Anion Gap 13.8 (5-19); Aspartate Amino Transferase 26 U/L (0-32); Blood Urea Nitrogen 9 mg/dL (8-23); Calcium 8.7 mg/dL (8.5-10.5); Carbon Dioxide 25 mmol/L (22-29); Chloride 104 mmol/L (98-107); Creatinine Clr Calc Pharmacy 108.8241; Globulin 2.8 g/dL (1.3-4.6); Glucose 102 mg/dL (65-115); Magnesium 2.1 mg/dL (1.7-2.3); Osmolality Calculated 284 mOsm/kg (285-295); Phosphorus 3.2 mg/dL (2.5-4.5); Potassium 3.8 mmol/L (3.5-5.1); Sodium 139 mmol/L (136-145); Total Bilirubin 0.2 mg/dL (0.15-1.2); Total Protein 6.5 g/dL (6.6-8.7)
[2020-04-02] MEDS: docusate sodium 100 mg Capsule PO (08:01)
[2020-04-02] MEDS: cyclobenzaprine 10 mg Tablet PO (08:01)
--- NOTE | 2020-04-02 12:28 | P.DS_ITS ---
Discharge Providers Date of Admission: 03/25/20 16:31 Date of Discharge: April 02, 2020 Attending Provider at Admission: Toy Ledbetter MD Attending Provider at Discharge: Joseph Balderas MD Consults: Neurosurgery: Dr. Watson Primary Care Provider: ROME Villagomez Diagnoses at Discharge Discharge Diagnosis (1) Displacement of lumbar disc with radiculopathy: Status: Acute (2) Spinal stenosis of lumbar region with radiculopathy: Status: Acute (3) Intervertebral disc disorder with radiculopathy of lumbosacral region: Status: Chronic (4) Encounter for long-term opiate analgesic use: Status: Chronic Reason for Visit Reason for Visit: Reason For Visit: BACK PAIN Hospital Course Discharge Summary: Camille Dash is a 64 year old female lumbar spinal stenosis, lumbar disc disease with radiculopathy, cervical disc disease with myelopathy, asthma, who presents to the emergency room due to severe intractable back pain. Patient was admitted for displacement of lumbar disc with radiculopathy, received pain control, physical therapy, but patient's pain persisted, MRI of the lumbar spine showed: 1. Severe central, subarticular recess and mild bilateral foraminal stenosis at L4-5. New central disc protrusion now encroaching upon the thecal sac with significant impingement resulting in stenosis. 2. Widening with increased fluid in the L4-5 facet joint and acute inflammatory changes surrounding the facet joints at L4-5. 3. Mild central, subarticular recess and foraminal narrowing at L3-4 and L5-S1. Dr. Watson was consulted, patient had a discectomy, foraminotomy, Hemilaminotomy on March 29. Postoperative course was complicated by extreme pain. Pain was treated by [place] and IV Dilaudid. She was also started on Medrol pack. Repeat CT scan was done which showed postoperative changes without any acute injury. Gradually patient worked well with physical therapy and pain medication requirement were low as well. Patient is been discharged to residential for further rehabilitation and physical therapy with advised to follow-up with Dr. Watson in 2 weeks on Medrol pack. Patient is been discharged in hemodynamically stable condition. Physical Exam Const: COMMON NORMALS: no acute distress and patient oriented x3 GENERAL APPEARANCE: cooperative and comfortable HENMT: COMMON NORMALS: normocephalic HEAD & SCALP: normocephalic Eye: COMMON NORMALS: Equal, round and reactive pupils present and no papilledema GENERAL EYE: appearance normal, both eyes and all related structures PUPIL: Yes Equal, round and reactive pupils present DIRECT OPHTHALMOSCOPY: Yes no papilledema Neck/C-Spine: COMMON NORMALS: full ROM, no lymphadenopathy, no JVD and Thyroid normal THYROID: Thyroid normal Lymph: LYMPHATIC: no lymphadenopathy noted Resp: COMMON NORMALS: normal respiratory effort, No retractions, No use of accessory muscles and clear to auscultation bilaterally AUSCULTATION: clear to auscultation bilaterally Cardio: COMMON NORMALS: no JVD, regular rate, regular rhythm, S1 normal heart sound present, S2 normal heart sound present, No gallops present (Cardio), No clicks present (Cardio) and No murmurs present (Cardio) RATE: regular rate RHYTHM: regular rhythm HEART SOUNDS: S1 normal heart sound present and S2 normal heart sound present GI: COMMON NORMALS: Normal to inspection, nondistended, normoactive bowel sounds present, Soft to palpation, non-tender, No hepatosplenomegaly present, no masses and no bruits PALPATION: Yes Soft to palpation and Yes No hepatosplenomegaly present Back/Pelvis: LUMBAR SPINE/LOWER BACK: Yes normal to inspection, Yes ROM limited, Yes lumbar spinal tenderness, Yes paraspinal muscle tenderness and Yes paraspinal muscle spasm Extremity: COMMON NORMALS: normal to inspection, full ROM, capillary refill normal, no clubbing, cyanosis or edema, no calf tenderness and no pedal edema Neuro: COMMON NORMALS: patient oriented x3, CN's II-XII intact bilaterally and moves all extremities OTHER: Exam limited due to pain. Psych: COMMON NORMALS: mental status grossly normal, Normal thought process present and cooperative THOUGHT PROCESS: Normal thought process present Urinary Catheter Management^: F: Cath Placed During This Visit: yes Urinary Catheter Date of Insertion: 03/29/20 Urinary Catheter Time of Insertion: 08:20 Discharge Data Data Completed and Pending: Completed Studies During Hospitalization Category Date Time Status CT lumbar spine w o con* [id number] NOW Cat Scan 03/30/20 17:00 Completed XR lumbar spine 1 V [id number] Routine Exams 03/29/20 08:13 Completed XR lumbar spine 1 V [id number] Routine Exams 03/29/20 08:51 Completed MR lumbar spine w o con* [id number] Routi ne MRI 03/27/20 10:54 Completed Pathology: Surgic al [PTH] Routine Pth 03/29/20 11:07 Completed Pending at discharge Category Date Time Status Complete Blood Co unt w/Auto AM LABS Lab 04/03/20 04:00 Ordered Comprehensive Met abolic Panel AM LA BS Lab 04/03/20 04:00 Ordered Magnesium AM LABS Lab 04/03/20 04:00 Ordered Phosphorus AM LAB S Lab 04/03/20 04:00 Ordered MR lumbar spine w o/w con [id number] Rout ine MRI 03/31/20 07:00 Ordered Labs from last 24 hours 04/02/20 04/02/20 05:42 05:42 WBC 7.8 RBC 3.41 L Hgb 10.4 L Hct 32.8 L MCV 96.2 MCH 30.5 MCHC 31.7 RDW 12.5 Plt Count 340 MPV 9.1 Neut % (Auto) 63.4 Lymph % (Auto) 27.8 Hawkins % (Auto) 6.6 Eos % (Auto) 1.5 Baso % (Auto) 0.4 Neut # (Auto) 4.9 Lymph # (Auto) 2.2 Hawkins # (Auto) 0.5 Eos # (Auto) 0.1 Baso # (Auto) 0.0 Nucleated RBC % (a uto) 0 Nucleated RBCs # 0.0 Sodium 139 Potassium 3.8 Chloride 104 Carbon Dioxide 25 Anion Gap 13.8 BUN 9 Creatinine 0.5 GFR Calculation 125.0 Glucose 102 Calculated Osmolal ity 284 L Calcium 8.7 Phosphorus 3.2 Magnesium 2.1 Total Bilirubin 0.2 AST 26 ALT 33 Alkaline Phosphata se 126 H Total Protein 6.5 L Albumin 3.7 Globulin 2.8 Vitals: Last Vital Signs Temp 97.8 F 04/02/20 11:45 Pulse 76 04/02/20 11:45 Resp 20 H 04/02/20 11:45 BP 160/71 04/02/20 11:45 Pulse Ox 96 04/02/20 11:45 Discharge Plan Discharge Patient Disposition: Xfer SNF Condition: Stable Prescriptions: New hydrocodone-acetaminophen 10-325 mg Tablet 1 tab PO Q4H PRN (Reason: Moderate To Severe Pain) Qty: 10 RF: 0 Medrol (Abraham) 4 mg tablets,dose pack See Rx Instructions .ROUTE .COMPLEX Qty: 21 RF: 0 Continued amitriptyline 50 mg tablet 50 mg PO BEDTIME Qty: 90 RF: 0 albuterol sulfate 2.5 mg /3 mL (0.083 %) solution for nebulization See Rx Instructions .ROUTE .COMPLEX Qty: 180 RF: 0 albuterol sulfate [ProAir HFA] 90 mcg/actuation HFA aerosol inhaler 2 inh INHALATION QID Qty: 18 RF: 0 zonisamide 100 mg Capsule 400 mg PO DAILY RF: 0 multivitamin Capsule 1 cap PO DAILY RF: 0 docusate sodium [Colace] 100 mg Capsule 300 mg PO BEDTIME RF: 0 vitamin B complex [Super B-50 Complex] Capsule 1 cap PO DAILY RF: 0 Prevagen 1 cap PO DAILY RF: 0 biotin 5 mg Tablet 5 mg PO DAILY RF: 0 ProAir HFA 90 mcg/actuation Hfa Aerosol Inhaler 2 puff INHALATION QID PRN (Reason: Shortness Of Breath) RF: 0 Discontinued hydrocodone-acetaminophen 5-325 mg tablet 1 tab PO TID PRN (Reason: pain) 30 Days Qty: 90 RF: 0 Tylenol Cold Head Congest Sevr 5-325-200 mg Tablet 2 tab PO Q6H PRN (Reason: Congestion) RF: 0 Discharge Orders: Discharge Order (Routine); Ordered 04/02/20 Ordered By: Joseph Balderas Referrals: [facility] [Outside] (You will return to [facility]. They will make all follow up appointments for you as needed.) Umesh Watson MD [Physician] - 7-10 days ([facility] will make sure you get an hospital follow up appointment with Dr. Watson in 7-10 days.) Otilio Rojas FNP [Primary Care Provider] - 2 weeks ([facility] will make sure you have a hospital follow up appointment with your primary care provider in 2 weeks.) Discharge Diet: Cardiac Discharge Activity: As per PT/OT instructions Patient Instructions: Back Pain, Hydrocodone/Acetaminophen (By mouth), Methylprednisolone (By mouth), Laminectomy for Herniated Disc (DC), Lumbar Spinal Stenosis (DC) Activity Restrictions/Additional Instructions: Please follow-up with Dr. Watson as directed. Discharge Attestations Time Spent in Discharge Care*: greater than 30 min Specific Discharge Activities: Specific discharge activities: educating patient, discussing with pcp/other providers, discussing with pillowcase folder/social workers/dc planners, documenting/other paperwork and evaluating patient/reviewing data Status at Discharge: Cognitive status at discharge: cognitively intact , Behavioral status at discharge: cooperative , Functional status at discharge: other assisted ambulation Overall status at discharge: patient is progressing back to baseline Quality Metrics Clinical Quality Measures During this hospital stay, did patient experience: None Coding Level of Care Code Acute Vendor Representatives for [facility] Fwd Exam Comprehensive Diagnoses Displacement of lumbar disc with radiculopathy M51.16 Spinal stenosis of lumbar region with radiculopathy M48.061; M54.16 Intervertebral disc disorder with radiculopathy of lumbosacral region M51.17 Encounter for long-term opiate analgesic use Z79.891
== END 2020-04-02 17:45 | disposition skilled nursing facility (03) | DRG 519 ==
LOC: ER 13:14 → MEDSURG 17:20
PROVIDERS: Specialist; Admitting Provider Family Medicine; PCP Registered Nurse; Visit Provider Student in an Organized Health Care Education/Training Program
PROC: 01NB0ZZ Release Lumbar Nerve, Open Approach (ICD-10-PCS; principal; 2020-03-29 08:05)
DX: M48.061 Spinal stenosis, lumbar region without neurogenic claudication (principal); M50.00 Cervical disc disorder with myelopathy, unspecified cervical region; M54.16 Radiculopathy, lumbar region; J45.909 Unspecified asthma, uncomplicated; Z87.891 Personal history of nicotine dependence; M62.838 Other muscle spasm
CPT/HCPCS: 12345; 36415; 72020; 72131; 72148; 80053; 83735; 84100; 85025; 85610; 88304; 94640; 96372; 96375; 97110; 97116; 97161; 97166; 97530; 97535; 99281; A9281; J0131; J1100; J1170; J1650; J1885; J1956; J2001; J2250; J2270; J2360; J2370; J2405; J2704; J2710; J3010; J3370; J3490; J3535; J7030; J7050; J7509

== ENCOUNTER → 2020-04-19 11:35 | Outpatient (BNVA) | payer MEDICARE, SELFPAY | PROVIDERS: PCP Registered Nurse; Visit Provider Anesthesiology | DX: M50.020 Cervical disc disorder with myelopathy, mid-cervical region, unspecified level (principal); M51.17 Intervertebral disc disorders with radiculopathy, lumbosacral region; Z98.1 Arthrodesis status | CPT/HCPCS: 99213; 99214 ==

== ENCOUNTER → 2020-05-18 13:41 | Outpatient (BNVA) | payer MEDICARE, SELFPAY | PROVIDERS: PCP Registered Nurse; Visit Provider Nurse Practitioner | DX: M54.2 Cervicalgia (principal); M54.41 Lumbago with sciatica, right side; M54.42 Lumbago with sciatica, left side; Z79.891 Long term (current) use of opiate analgesic | CPT/HCPCS: 99215 ==

== ENCOUNTER 2020-06-15 12:42 | Outpatient (CLI) | payer MEDICARE, SELFPAY ==
--- NOTE | 2020-06-15 12:49 | MR_ITS ---
WS: [id number] MRI LUMBAR SPINE NONCONTRAST HISTORY: HX OF L-SPINE SURGERY COMPARISON: 03/27/2020 TECHNIQUE: Sagittal and axial multisequence imaging is submitted. Prior laminectomy discectomies at L3-4 and L4-5. Mild LEFT convex curvature the lumbar spine. There is marrow edema along the adjacent RIGHT lateral e ndplates of L4-5 and extending through the RIGHT posterior elements and paravertebral soft tissues. A ppropriate for the recent surgery. Small amount of edema and increased STIR signal in the disc at L3- 4 and L4-5 also probably postsurgical. Otherwise disc spaces are well preserved with mild narrowing at L5-S1. Conus terminates normally at L1. L1-L2: Normal. L2-L3: Mild facet arthropathy. L3-L4: Mild annular disc bulging. Broad-based disc protrusion in the RIGHT foramen mild contact on th e L3 nerve root. Large RIGHT laminectomy defect posteriorly. L4-L5: Significant improvement in the central canal stenosis centrally. There is still mild central s tenosis just below the disc level. Large RIGHT laminectomy defect posteriorly. There is diffuse annul ar disc bulging. LEFT paracentral soft tissue deforming the thecal sac. Could be scar tissue or small disc protrusion. Increased soft tissue in the RIGHT foramen with mild stenosis. L5-S1: Diffuse annular disc bulging. Very mild narrowing of the foramen bilaterally due to osteophyti c ridging and disc bulging. No abscess. Postoperative changes in the soft tissues posteriorly at L4-5 and L5-S1. There is a large heterogeneous mass with calcification centrally in the pelvis. Most typical for fibr oid. MR/MR lumbar spine wo con* [id number] IMPRESSION: 1. Patient's undergone discectomy and laminectomies at L3-4 and L4-5 since [place] or study. Postsurgical changes in the soft tissues with increasing marrow edema and fluid in the disc. These changes are probably all appropriate for the rece nt surgery. No contrast was given for this examination. 2. Significant reduction of the central stenosis at L4-5 with only mild residu al stenosis remaining. LEFT paracentral small disc protrusion versus postsurgic al scarring. 3. Mild persistent narrowing of the RIGHT foramen at L4-5. 4. RIGHT foraminal broad-based disc protrusion at L3-4 with mild contact on th e nerve root. 5. Large fibroid uterus.
== END 2020-06-15 12:43 | disposition home or self-care (01) ==
LOC: RADWPI 12:46
PROVIDERS: Family Provider Registered Nurse; PCP Registered Nurse; Visit Provider Specialist
DX: Z98.890 Other specified postprocedural states (principal); M47.816 Spondylosis without myelopathy or radiculopathy, lumbar region; D25.9 Leiomyoma of uterus, unspecified; M51.26 Other intervertebral disc displacement, lumbar region; M48.061 Spinal stenosis, lumbar region without neurogenic claudication
CPT/HCPCS: 72148

== ENCOUNTER 2020-06-19 12:54 | Outpatient (CLI) | payer MEDICARE, SELFPAY ==
--- NOTE | 2020-06-19 12:59 | XR_ITS ---
WS: [id number] LUMBAR SPINE FLEXION AND EXTENSION TECHNIQUE: 3 views of the lumbar spine: Lateral neutral, flexion, and extension views. CLINICAL INFORMATION: lumbar pain COMPARISON: None. FINDINGS: Normal lumbar alignment on the neutral view. No instability on the flexion and extension views. Mild disc space narrowing L3-L4 L4-L5 and L5-S1.Moderate facet arthropathy L4-L5 and L5-S1. Aortic Ca lcification. XR/XR lumbar spine f/e only [id number] IMPRESSION: No instability on flexion-extension.
== END 2020-06-19 12:55 | disposition home or self-care (01) ==
LOC: RADWPI 12:58
PROVIDERS: Family Provider Registered Nurse; PCP Registered Nurse; Visit Provider Specialist
DX: M54.5 Low back pain (principal)
CPT/HCPCS: 72120

== ENCOUNTER → 2020-06-21 09:26 | Outpatient (BNVA) | payer MEDICARE, SELFPAY | PROVIDERS: Family Provider Registered Nurse; PCP Registered Nurse; Visit Provider Anesthesiology | DX: M51.9 Unspecified thoracic, thoracolumbar and lumbosacral intervertebral disc disorder (principal); M51.17 Intervertebral disc disorders with radiculopathy, lumbosacral region; M50.020 Cervical disc disorder with myelopathy, mid-cervical region, unspecified level; Z98.890 Other specified postprocedural states; Z98.1 Arthrodesis status; Z79.891 Long term (current) use of opiate analgesic | CPT/HCPCS: 99214 ==

== ENCOUNTER → 2020-07-18 10:11 | Outpatient (BNVA) | payer MEDICARE, SELFPAY | PROVIDERS: Family Provider Registered Nurse; PCP Registered Nurse; Visit Provider Anesthesiology | DX: G89.29 Other chronic pain (principal); M51.9 Unspecified thoracic, thoracolumbar and lumbosacral intervertebral disc disorder; M51.17 Intervertebral disc disorders with radiculopathy, lumbosacral region; M53.3 Sacrococcygeal disorders, not elsewhere classified; M50.020 Cervical disc disorder with myelopathy, mid-cervical region, unspecified level; Z98.1 Arthrodesis status; Z98.890 Other specified postprocedural states; Z79.891 Long term (current) use of opiate analgesic | CPT/HCPCS: 99213; 99214 ==

== ENCOUNTER → 2020-08-24 08:55 | Outpatient (BNVA) | payer MEDICARE, SELFPAY | PROVIDERS: Family Provider Registered Nurse; PCP Registered Nurse; Visit Provider Anesthesiology | DX: G89.29 Other chronic pain (principal); M53.3 Sacrococcygeal disorders, not elsewhere classified; Z79.891 Long term (current) use of opiate analgesic | CPT/HCPCS: 77003; G0260; J1030; J3490 ==

== ENCOUNTER → 2020-09-14 10:22 | Outpatient (BNVA) | payer MEDICARE, SELFPAY | PROVIDERS: Family Provider Registered Nurse; PCP Registered Nurse; Visit Provider Anesthesiology | DX: G89.29 Other chronic pain (principal); M50.020 Cervical disc disorder with myelopathy, mid-cervical region, unspecified level; M51.17 Intervertebral disc disorders with radiculopathy, lumbosacral region; M51.9 Unspecified thoracic, thoracolumbar and lumbosacral intervertebral disc disorder; M53.3 Sacrococcygeal disorders, not elsewhere classified; Z98.1 Arthrodesis status; Z79.891 Long term (current) use of opiate analgesic; Z98.890 Other specified postprocedural states | CPT/HCPCS: 99214 ==

== ENCOUNTER → 2020-09-28 09:54 | Outpatient (BNVA) | payer MEDICARE, SELFPAY | PROVIDERS: Family Provider Registered Nurse; PCP Registered Nurse; Visit Provider Anesthesiology | DX: G89.29 Other chronic pain (principal); M54.5 Low back pain; M51.9 Unspecified thoracic, thoracolumbar and lumbosacral intervertebral disc disorder; M53.3 Sacrococcygeal disorders, not elsewhere classified; Z98.890 Other specified postprocedural states; Z79.891 Long term (current) use of opiate analgesic | CPT/HCPCS: 62323; J1040; J3490 ==

== ENCOUNTER → 2020-11-21 10:49 | Outpatient (BNVA) | payer MEDICARE, SELFPAY | PROVIDERS: Family Provider Registered Nurse; PCP Registered Nurse; Visit Provider Anesthesiology | DX: G89.29 Other chronic pain (principal); M51.17 Intervertebral disc disorders with radiculopathy, lumbosacral region; M53.3 Sacrococcygeal disorders, not elsewhere classified; M50.020 Cervical disc disorder with myelopathy, mid-cervical region, unspecified level; M51.9 Unspecified thoracic, thoracolumbar and lumbosacral intervertebral disc disorder; Z98.890 Other specified postprocedural states; Z98.1 Arthrodesis status; Z79.891 Long term (current) use of opiate analgesic | CPT/HCPCS: 99214 ==

== ENCOUNTER → 2021-01-16 10:50 | Outpatient (BNVA) | payer MEDICARE, SELFPAY | PROVIDERS: Family Provider Registered Nurse; PCP Registered Nurse; Visit Provider Anesthesiology | DX: G89.29 Other chronic pain (principal); M51.17 Intervertebral disc disorders with radiculopathy, lumbosacral region; M53.3 Sacrococcygeal disorders, not elsewhere classified; M50.020 Cervical disc disorder with myelopathy, mid-cervical region, unspecified level; M51.9 Unspecified thoracic, thoracolumbar and lumbosacral intervertebral disc disorder; Z98.1 Arthrodesis status; Z98.890 Other specified postprocedural states; Z79.891 Long term (current) use of opiate analgesic | CPT/HCPCS: 99214 ==

== ENCOUNTER → 2021-02-06 10:53 | Outpatient (BNVA) | payer MEDICARE, SELFPAY | PROVIDERS: Family Provider Registered Nurse; PCP Registered Nurse; Visit Provider Registered Nurse | DX: N39.0 Urinary tract infection, site not specified (principal); A49.9 Bacterial infection, unspecified; J45.40 Moderate persistent asthma, uncomplicated; K21.9 Gastro-esophageal reflux disease without esophagitis; E66.9 Obesity, unspecified | CPT/HCPCS: 81000 ==

== ENCOUNTER 2021-10-02 08:30 | Emergency (ER) | payer MEDICARE, SELFPAY ==
[2021-10-02] VITALS (8 sets, daily range): BP systolic 127–148; BP diastolic 84–95; PULSE 81–95; RESP 18–24; TEMP 36.7–36.8; O2SAT 91–97; BMI 31.1
--- NOTE | 2021-10-02 08:39 | XR_ITS ---
WS: [id number] Exam: XR chest 1V portable [id number] Date/Time of Exam: 10/02/2021 8:41 AM Reason For Exam: R chest congestion Comparison 11/19/2019. Lungs are clear and fully inflated. Normal cardiomediastinal structures. No pleural effusions. Plate and screw fixation of the lower cervical spine. Intact bony structures. XR/XR chest 1V portable [id number] IMPRESSION: 1. No acute cardiopulmonary finding.
--- NOTE | 2021-10-02 08:40 | ED_ITS ---
Documented by User: MOOKIE Singh 10/02/21 14:49 HPI - SOB/Dyspnea General: Chief Complaint: Shortness of Breath/Dyspnea Stated Complaint: BACK PAIN/ SOB Time Seen by Provider: 10/02/21 08:31 Source: patient and EMS Mode of arrival: EMS Limitations: no limitations History of Present Illness: HPI Narrative: Patient is a 66-year-old female with a history of asthma here for complaints of right-sided chest congestion . She tells me it feels like she could have pneumonia. Over the past 1.5 wks she has had a productive cough. She states she felt like she was improving but then worsened again. She has had positive COVID exposure. She states the right side of her chest feels full. She states this fullness worsens with lying flat. She is not complaining of substernal or left-sided chest pain. No radicular pain. She states because of the coughing she has now developed low right-sided back pain with radiation down into her right leg. She states she has a history of spinal stenosis and states this pain is similar to pains that she has had previously. No color or temperature changes to her left lower extremity. She is not complaining of any abdominal pain. MD elicited complaint: cough and chest pain Pertinent past history: asthma Onset (ago): day(s) Timing: constant Severity: moderate Exacerbating factors: lying flat Relieving factors: upright position Known history of: asthma Associated symptoms: Reports chest congestion, chest pain and orthopnea; Deny abdominal pain, dizziness, extremity pain, fever(s), hemoptysis, lightheadedness, nausea, palpitations, syncope or vomiting Related Data: Home oxygen amount: none Review of Systems Const: Denies: fever(s), chills, body aches, fatigue or malaise Card: Reports: chest pain, dyspnea on exertion and orthopnea; Denies: palpitations, irregular heart rhythm, edema, swelling of feet/ankles, lightheadedness, syncope, pre-syncope, leg pain with exertion or acrocyanosis Resp: Reports: productive cough, pain on inspiration and chest congestion; Denies: wheezing or hemoptysis GI: Denies: abdominal pain, nausea, vomiting or diarrhea : Denies: flank pain, dysuria or hematuria Musc: Reports: back pain; Denies: neck pain, extremity pain, extremity swelling, joint pain or joint swelling Skin/Breast: Denies: rash Neuro: Denies: headache(s), numbness in extremities, weakness in extremities, sensory changes or dizziness PFSH ED PFSH: Medical History Asthma 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 06/22/2015 C6-C7 anterior cervical discectomy/f usion/fixation. 03/10/2014 C3-C4 ACDFF. Hx of lumbosacral spine surgery January 28 2020, [facility], right L3-L4, L4-L5 hemilaminotomy/discectomy/foraminotomy Surgical history of tubal ligation Family History Mother Asthma Father Heart disease Social History Smoking and tobacco status: former smoker Second hand smoke exposure: No Alcohol intake: current Lives independently: Yes Household members: family Housing: House Marital status: / service: No Current occupational status: disabled History of recent travel: No Physical Exam Const: COMMON NORMALS: no acute distress, patient oriented x3, no limitations and alert GENERAL APPEARANCE: cooperative NUTRITIONAL APPEARANCE: overweight ORIENTATION/CONSCIOUSNESS: Yes awake, Yes oriented to person, Yes oriented to place and Yes oriented to time HENMT: COMMON NORMALS: normocephalic and atraumatic HEAD & SCALP: normocephalic and atraumatic Chest: COMMONS NORMALS: normal inspection of the chest and normal palpation of entire chest wall Resp: COMMON NORMALS: normal respiratory effort and clear to auscultation bilaterally AUSCULTATION: clear to auscultation bilaterally Cardio: COMMON NORMALS: regular rate and regular rhythm RATE: regular rate RHYTHM: regular rhythm GI: COMMON NORMALS: Normal to inspection, nondistended, normoactive bowel sounds present, Soft to palpation, non-tender, No hepatosplenomegaly present and no masses PALPATION: Yes Soft to palpation and Yes No hepatosplenomegaly present Back/Pelvis: PELVIS: Yes sciatic notch tenderness SACROILIAC JOINTS: Yes SI joint(s) abnormal Extremity: COMMON NORMALS: full ROM, capillary refill normal, no clubbing, cyanosis or edema, no calf tenderness and no pedal edema GENERAL: Yes normal exam except as noted Neuro: MELANY COMA SCALE: document GCS findings Melany coma scale eye opening: Spontaneous Mckenney coma scale verbal response: Orientated Mckenney coma scale motor response: Obey commands Mckenney coma scale total score: 15 COMMON NORMALS: patient oriented x3, CN's II-XII intact bilaterally, moves all extremities, no focal motor deficits and no sensory deficits noted SENSORIUM/ORIENTATION: Yes alert, Yes oriented to person, Yes oriented to place and Yes oriented to time Skin: COMMON NORMALS: no rashes or lesions noted GENERAL SKIN EXAM: no rashes or lesions noted TRAUMA: no lacerations or abrasions Course Vital Signs: Vital signs: Vital Signs Temperature 98.3 F 10/02/21 13:56 Pulse Rate 88 10/02/21 13:56 Respiratory Rate 19 H 10/02/21 13:56 Blood Pressure 148/89 10/02/21 13:56 Pulse Oximetry 94 10/02/21 13:56 MDM - SOB/Dyspnea MDM Narrative: Medical decision making narrative: Patient has had a cough over the past 13 days. She initially thought she was getting better but then worsened. She is now complaining of right-sided chest congestion and fullness. CXR is normal. CTA ordered secondary to an elevated D-dimer. This does not show any PE. She does have a small 6 mm opacity that can be followed up as an outpatient with repeat imaging in 6 months. Her COVID was positive. Labs overall are unremarkable. She is not requiring oxygen. She did not qualify for oxygen based on her home O2 evaluation. She does not qualify for MCA based on length of symptoms. Will give IV dexamethasone and patient will be discharged home with PO dexamethsone x 6 days. Strict return to ED precautions given. Lab Data: Labs: Lab Results 10/02/21 10/02/21 10/02/21 09:30 09:30 09:30 WBC 7.3 10^3/uL 10^3/ uL (4.0-10.0) RBC 4.82 10^6/uL 10^6 /uL (4.1-5.3) Hgb 14.5 g/dL g/dL (11.5-15.3) Hct 44.2 % % (37.0-47.0) MCV 91.7 fl fl (81-99) MCH 30.1 pg pg (28.0-34.0) MCHC 32.8 g/dL g/dL (30.0-36.0) RDW 12.5 % % (12.1-15.1) Plt Count 317 10^3/cmm 10^3 /cmm (130-400) MPV 9.5 fL fL (7.4-10.4) Neut % (Auto) 77.3 % % Lymph % (Auto) 14.5 % % [place] % (Auto) 7.1 % % Eos % (Auto) 0.4 % % Baso % (Auto) 0.3 % % Neut # (Auto) 5.65 10^3/uL 10^3 /uL (1.8-7.7) Lymph # (Auto) 1.1 10^3/uL 10^3/ uL (0.8-4.8) [place] # (Auto) 0.5 10^3/uL 10^3/ uL (0.2-0.9) Eos # (Auto) 0.0 10^3/uL 10^3/ uL (0.0-0.8) Baso # (Auto) 0.0 10^3/uL 10^3/ uL (0.0-0.1) Nucleated RBC % (a uto) 0 % % Nucleated RBCs # 0.0 /100WBC /100W BC D-Dimer Sodium 137 mmol/L mmol/L (136-145) Potassium 4.3 mmol/L mmol/L (3.5-5.1) Chloride 102 mmol/L mmol/L (98-107) Carbon Dioxide 21 mmol/L L mmol/ L (22-29) Anion Gap 18.3 (5-19) BUN 10 mg/dL mg/dL (8-23) Creatinine 0.7 mg/dL mg/dL (0.5-0.9) GFR Calculation 84.2 mL/min L mL/ min (90-130) Glucose 105 mg/dL mg/dL (65-115) Calculated Osmolal ity 283 mOsm/kg L mOs m/kg (285-295) Calcium 7.9 mg/dL L mg/dL (8.5-10.5) Total Bilirubin 0.2 mg/dL mg/dL (0.15-1.2) AST 37 U/L H U/L (0-32) ALT 31 U/L U/L (0-33) Alkaline Phosphata se 146 IU/L H IU/L (35-105) Troponin T Baselin e 11 ng/L H ng/L (0-10) Troponin T 120 Min [place] band Delta Troponin T NT-Pro-B Natriuret Pep 76 pg/mL pg/mL (0-125) Total Protein 7.2 g/dL g/dL (6.6-8.7) Albumin 4.0 g/dL g/dL (3.5-5.2) Globulin 3.2 g/dL g/dL (1.3-4.6) SARS-CoV-2 Ag (Rap id) 10/02/21 10/02/21 10/02/21 09:30 11:30 11:42 WBC RBC Hgb Hct MCV MCH MCHC RDW Plt Count MPV Neut % (Auto) Lymph % (Auto) [place] % (Auto) Eos % (Auto) Baso % (Auto) Neut # (Auto) Lymph # (Auto) [place] # (Auto) Eos # (Auto) Baso # (Auto) Nucleated RBC % (a uto) Nucleated RBCs # D-Dimer 1.06 ug/mIFEU H u g/mIFEU (0-0.59) Sodium Potassium Chloride Carbon Dioxide Anion Gap BUN Creatinine GFR Calculation Glucose Calculated Osmolal ity Calcium Total Bilirubin AST ALT Alkaline Phosphata se Troponin T Baselin e Troponin T 120 Min [place] band 10.29 ng/L H ng/L (0-10) Delta Troponin T -0.71 ABS# L ABS# (0-10) NT-Pro-B Natriuret Pep Total Protein Albumin Globulin SARS-CoV-2 Ag (Rap id) Positive H (Negative) Imaging Data^: CXR: Radiologist's impression: [facility] [address] [place] [address] XRay Report Signed Patient: Camille Dash Unit #: [id number] : 1955 Age/Sex: 66 / F ADM Date: 10/02/21 Loc: ER Room/Bed: Attending Dr: Ordering Provider/Ordering MD: Lindsay Jones Date of Service: 10/02/21 Procedure(s): XR chest 1V portable [id number] Accession Number(s): [id number] Report Number: [id number] WS: [id number] Exam: XR chest 1V portable [id number] Date/Time of Exam: 10/02/2021 8:41 AM Reason For Exam: R chest congestion Comparison 11/19/2019. Lungs are clear and fully inflated. Normal cardiomediastinal structures. No pleural effusions. Plate and screw fixation of the lower cervical spine. Intact bony structures. XR/XR chest 1V portable [id number] IMPRESSION: 1. No acute cardiopulmonary finding. Dictated By: Ifeanyi Winston DO Signed By: Ifeanyi Winston DO Signed Date/Time: 10/02/21852 DD/ 0 CTA Chest: Radiologist's impression: [facility] HospitalR[facility].[place], [place] [address]AW Scan ReportSigned Patient: Camille Dash AUnit #: [id number]: [id number]#:[id number]/Sex: 66 / FADM Date: 10/02/21Loc: ERRoom/Bed:Attending Dr: Ordering Provider/Ordering MD: Lindsay Jones Date of Service: 10/02/21 Procedure(s): CT angio chest PE protcl [id number] Accession Number(s): [id number] Report Number: [id number] WS: [id number] CTA OF THE CHEST WITH PULMONARY EMBOLISM PROTOCOL TECHNIQUE: High-resolution contrast enhanced CTA of the chest with coronal and sagittal reformatted images with pulmonary embolism protocol. MIP images are also reviewed. CLINICAL INFORMATION: R chest pain; elevated d dimer COMPARISON: None. DLP: 558.[address] scans at [facility] use at least one of these dose optimization techniques: automated exposure control; mA and/or kV adjustment per patient size (includes targeted exams where dose is matched to clinical indication); or iterative reconstruction. FINDINGS: Both lungs are well aerated. No focal pneumonia or pleural fluid. Small hazy groundglass opacity in the right upper lobe laterally measuring 5 mm. Slight hazy micronodular groundglass infiltrate in right upper lobe anteriorly similar to November 19, 2019. Proximal main pulmonary arteries are normal. Normal segmental and subsegmental pulmonary arteries. No evidence of pulmonary embolus. Normal caliber thoracic aorta. Aortic calcification. No mediastinal or hilar lymphadenopathy. No axillary lymphadenopathy. Adrenal glands are normal. Partially visualized hepatomegaly. Cholelithiasis. Small esophageal hiatal hernia. Stable low-attenuation lesion right hepatic lobe likely hepatic cyst or hemangioma unchanged since November 19, 2019 measuring 10 mm. Postoperative changes lower cervical spine. CT/CT angio chest PE protcl [id number] IMPRESSION: 1. Proximal main pulmonary arteries are normal. No evidence of pulmonary embolus. 2. No focal pneumonia or pleural fluid. 3. Small patchy opacity in the right lower lobe laterally measuring 6 mm. Recommend 6 month follow-up. 4. Micronodular groundglass infiltrate in right upper lobe anteriorly similar to November 19, 2019 likely infectious or inflammatory. 5. No other suspicious pulmonary opacities. 6. Small esophageal hiatal hernia. 7. Cholelithiasis. 8. No other significant changes compared to previous. 9. Infectious or inflammatory with a few Dictated By:Roderick Contreras MDSigned By:Roderick Contreras MDSigned Date/Time:10/02/21 1156DD/ 1144 EKG Data^: EKG 1: EKG Interpretation Date: 10/02/21 EKG interpretation time: 09:13 Interpretation: Sinus rhythm Rate 91 T wave inversions noted in V3 through V6 No changes when compared to EKG performed on 11/2019 Discharge Plan Discharge Patient Disposition: Home Clinical Impression: COVID-19 Condition: Stable Prescriptions: New dexamethasone 6 mg tablet 6 mg PO DAILY Qty: 6 RF: 0 No Action Tylenol Cold Head Congest Sevr 5-325-200 mg tablet 2 tab PO .1 day PRNRF: 0 hydrocodone-acetaminophen 10-325 mg tablet 1 tab PO Q6H PRN (Reason: pain) 30 Days Qty: 120 RF: 0 hydrocodone-acetaminophen 10-325 mg tablet 1 tab PO QID 30 Days Qty: 120 RF: 0 levofloxacin 500 mg tablet 500 mg PO DAILY 5 Days Qty: 5 RF: 0 albuterol sulfate 2.5 mg /3 mL (0.083 %) solution for nebulization See Rx Instructions .ROUTE .COMPLEX Qty: 180 RF: 0 albuterol sulfate 90 mcg/actuation HFA aerosol inhaler See Rx Instructions .ROUTE .COMPLEX Qty: 25.5 RF: 0 amitriptyline 50 mg tablet See Rx Instructions .ROUTE .COMPLEX Qty: 90 RF: 0 zonisamide 100 mg capsule See Rx Instructions .ROUTE .COMPLEX Qty: 120 RF: 0 Advair HFA 115-21 mcg/actuation HFA aerosol inhaler See Rx Instructions .ROUTE .COMPLEX Qty: 12 RF: 0 multivitamin Capsule 1 cap PO DAILY RF: 0 docusate sodium [Colace] 100 mg Capsule 300 mg PO BEDTIME RF: 0 vitamin B complex [Super B-50 Complex] Capsule 1 cap PO DAILY RF: 0 Prevagen 1 cap PO DAILY RF: 0 biotin 5 mg Tablet 5 mg PO DAILY RF: 0 Discharge Orders: Discharge ED (Routine); Ordered 10/02/21 Ordered By: Lindsay Jones Referrals: Otilio Rojas FNP [Primary Care Provider] - Patient Instructions: COVID-19 (Coronavirus Disease 2019) (ED) Activity Restrictions/Additional Instructions: You need to quarantine for a full 10 days starting from symptom onset and quarantine is not lifted until symptoms are improving and you are fever free for 24 hours without medications. As we discussed your CT scan showed a small right lower lobe nodule that needs to be reevaluated in 6 months through your primary care provider. You did not qualify for oxygen today. You do not qualify for monoclonal antibody infusion based on the length of time in which you have had symptoms. You need to return to the ED for worsening chest pain, shortness of breath, difficulty b reathing, or any other concerns you may have. Coding Level of Care Code ED Towel Sorter for Jack Fwd Exam Comprehensive Monoclonal Antibody - ED Inclusion/Exclusion Criteria age >/= 12 years, weight >/= 40kg /88lbs and + direct Sars-Cov-2 test less than 7-10 days ago Plan for treatment Does not meet criteria (DO NOT GIVE) (symptoms present longer than 10 days) Date of symptom(s) onset: 09/22/21 Where are the positive COVID test results, if positive?: Resulted in [facility] Documented by User: Julio Michaud MD 10/07/21 06:34 HPI - SOB/Dyspnea General: Chief Complaint: Shortness of Breath/Dyspnea Stated Complaint: BACK PAIN/ SOB Time Seen by Provider: 10/02/21 08:31 PFSH ED PFSH: Medical History Asthma 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 06/22/2015 C6-C7 anterior cervical discectomy/fusion/fixation. 03/10/2014 C3-C4 ACDFF. Hx of lumbosacral spine surgery January 28 2020, [facility], right L3-L4, L4-L5 hemilaminotomy/discectomy/foraminotomy Surgical history of tubal ligation Family History Mother Asthma Father Heart disease Social History Smoking and tobacco status: former smoker Second hand smoke exposure: No Alcohol intake: current Lives independently: Yes Household members: family Housing: House Marital status: / service: No Current occupational status: disabled History of recent travel: No Course Vital Signs: Vital signs: Vital Signs Temperature 98.3 F 10/02/21 13:56 Pulse Rate 88 10/02/21 13:56 Respiratory Rate 19 H 10/02/21 13:56 Blood Pressure 148/89 10/02/21 13:56 Pulse Oximetry 94 10/02/21 13:56 MDM - SOB/Dyspnea MDM Narrative: Medical decision making narrative: I have reviewed documentation. Julio Michaud MD Emergency Medicine Lab Data: Labs: Lab Results 10/02/21 10/02/21 10/02/21 09:30 09:30 09:30 WBC 7.3 10^3/uL 10^3/ uL (4.0-10.0) RBC 4.82 10^6/uL 10^6 /uL (4.1-5.3) Hgb 14.5 g/dL g/dL (11.5-15.3) Hct 44.2 % % (37.0-47.0) MCV 91.7 fl fl (81-99) MCH 30.1 pg pg (28.0-34.0) MCHC 32.8 g/dL g/dL (30.0-36.0) RDW 12.5 % % (12.1-15.1) Plt Count 317 10^3/cmm 10^3 /cmm (130-400) MPV 9.5 fL fL (7.4-10.4) Neut % (Auto) 77.3 % % Lymph % (Auto) 14.5 % % [place] % (Auto) 7.1 % % Eos % (Auto) 0.4 % % Baso % (Auto) 0.3 % % Neut # (Auto) 5.65 10^3/uL 10^3 /uL (1.8-7.7) Lymph # (Auto) 1.1 10^3/uL 10^3/ uL (0.8-4.8) [place] # (Auto) 0.5 10^3/uL 10^3/ uL (0.2-0.9) Eos # (Auto) 0.0 10^3/uL 10^3/ uL (0.0-0.8) Baso # (Auto) 0.0 10^3/uL 10^3/ uL (0.0-0.1) Nucleated RBC % (a uto) 0 % % Nucleated RBCs # 0.0 /100WBC /100W BC D-Dimer Sodium 137 mmol/L mmol/L (136-145) Potassium 4.3 mmol/L mmol/L (3.5-5.1) Chloride 102 mmol/L mmol/L (98-107) Carbon Dioxide 21 mmol/L L mmol/ L (22-29) Anion Gap 18.3 (5-19) BUN 10 mg/dL mg/dL (8-23) Creatinine 0.7 mg/dL mg/dL (0.5-0.9) GFR Calculation 84.2 mL/min L mL/ min (90-130) Glucose 105 mg/dL mg/dL (65-115) Calculated Osmolal ity 283 mOsm/kg L mOs m/kg (285-295) Calcium 7.9 mg/dL L mg/dL (8.5-10.5) Total Bilirubin 0.2 mg/dL mg/dL (0.15-1.2) AST 37 U/L H U/L (0-32) ALT 31 U/L U/L (0-33) Alkaline Phosphata se 146 IU/L H IU/L (35-105) Troponin T Baselin e 11 ng/L H ng/L (0-10) Troponin T 120 Min [place] band Delta Troponin T NT-Pro-B Natriuret Pep 76 pg/mL pg/mL (0-125) Total Protein 7.2 g/dL g/dL (6.6-8.7) Albumin 4.0 g/dL g/dL (3.5-5.2) Globulin 3.2 g/dL g/dL (1.3-4.6) SARS-CoV-2 Ag (Rap id) 10/02/21 10/02/21 10/02/21 09:30 11:30 11:42 WBC RBC Hgb Hct MCV MCH MCHC RDW Plt Count MPV Neut % (Auto) Lymph % (Auto) [place] % (Auto) Eos % (Auto) Baso % (Auto) Neut # (Auto) Lymph # (Auto) [place] # (Auto) Eos # (Auto) Baso # (Auto) Nucleated RBC % (a uto) Nucleated RBCs # D-Dimer 1.06 ug/mIFEU H u g/mIFEU (0-0.59) Sodium Potassium Chloride Carbon Dioxide Anion Gap BUN Creatinine GFR Calculation Glucose Calculated Osmolal ity Calcium Total Bilirubin AST ALT Alkaline Phosphata se Troponin T Baselin e Troponin T 120 Min [place] band 10.29 ng/L H ng/L (0-10) Delta Troponin T -0.71 ABS# L ABS# (0-10) NT-Pro-B Natriuret Pep Total Protein Albumin Globulin SARS-CoV-2 Ag (Rap id) Positive H (Negative) Discharge Plan Discharge Patient Disposition: Home Clinical Impression: COVID-19 Condition: Stable Prescriptions: New dexamethasone 6 mg tablet 6 mg PO DAILY Qty: 6 RF: 0 No Action Tylenol Cold Head Congest Sevr 5-325-200 mg tablet 2 tab PO .1 day PRNRF: 0 hydrocodone-acetaminophen 10-325 mg tablet 1 tab PO Q6H PRN (Reason: pain) 30 Days Qty: 120 RF: 0 hydrocodone-acetaminophen 10-325 mg tablet 1 tab PO QID 30 Days Qty: 120 RF: 0 levofloxacin 500 mg tablet 500 mg PO DAILY 5 Days Qty: 5 RF: 0 albuterol sulfate 2.5 mg /3 mL (0.083 %) solution for nebulization See Rx Instructions .ROUTE .COMPLEX Qty: 180 RF: 0 albuterol sulfate 90 mcg/actuation HFA aerosol inhaler See Rx Instructions .ROUTE .COMPLEX Qty: 25.5 RF: 0 amitriptyline 50 mg tablet See Rx Instructions .ROUTE .COMPLEX Qty: 90 RF: 0 zonisamide 100 mg capsule See Rx Instructions .ROUTE .COMPLEX Qty: 120 RF: 0 Advair HFA 115-21 mcg/actuation HFA aerosol inhaler See Rx Instructions .ROUTE .COMPLEX Qty: 12 RF: 0 multivitamin Capsule 1 cap PO DAILY RF: 0 docusate sodium [Colace] 100 mg Capsule 300 mg PO BEDTIME RF: 0 vitamin B complex [Super B-50 Complex] Capsule 1 cap PO DAILY RF: 0 Prevagen 1 cap PO DAILY RF: 0 biotin 5 mg Tablet 5 mg PO DAILY RF: 0 Discharge Orders: Discharge ED (Routine); Ordered 10/02/21 Ordered By: Lindsay Jones Referrals: Otilio Rojas FNP [Primary Care Provider] - Patient Instructions: COVID-19 (Coronavirus Disease 2019) (ED) Activity Restrictions/Additional Instructions: You need to quarantine for a full 10 days starting from symptom onset and quarantine is not lifted until symptoms are improving and you are fever free for 24 hours without medications. As we discussed your CT scan showed a small right lower lobe nodule that needs to be reevaluated in 6 months through your primary care provider. You did not qualify for oxygen today. You do not qualify for monoclonal antibody infusion based on the length of time in which you have had symptoms. You need to return to the ED for worsening chest pain, shortness of breath, difficulty breathing, or any other concerns you may have. Coding Level of Care Code ED Towel Sorter for Jack Fwjalil Exam Comprehensive
[2021-10-02 10:14] LABS: Basophils % 0.3 %; Eosinophils % 0.4 %; Hematocrit 44.2 % (37.0-47.0); Hemoglobin 14.5 g/dL (11.5-15.3); Lymphocytes # 1.1 10^3/uL (0.8-4.8); Lymphocytes % 14.5 %; Mean Corpuscular HGB Conc 32.8 g/dL (30.0-36.0); Mean Corpuscular Hemoglobin 30.1 pg (28.0-34.0); Mean Corpuscular Volume 91.7 fl (81-99); Mean Platelet Volume 9.5 fL (7.4-10.4); Monocytes # 0.5 10^3/uL (0.2-0.9); Monocytes % 7.1 %; Neutrophils # 5.65 10^3/uL (1.8-7.7); Neutrophils % 77.3 %; Nucleated Red Blood Cells % 0 %; Platelet Count 317 10^3/cmm (130-400); Red Blood Count 4.82 10^6/uL (4.1-5.3); Red Cell Distribution Width 12.5 % (12.1-15.1); White Blood Count 7.3 10^3/uL (4.0-10.0)
[2021-10-02 10:17] LABS: D Dimer 1.06 ug/mIFEU (0-0.59)
[2021-10-02 10:18] LABS: Troponin(5th) Baseline 11 ng/L (0-10)
[2021-10-02 10:21] LABS: Alanine Aminotransferase 31 U/L (0-33); Alkaline Phosphatase 146 IU/L (35-105); Anion Gap 18.3 (5-19); Aspartate Amino Transferase 37 U/L (0-32); Blood Urea Nitrogen 10 mg/dL (8-23); Calcium 7.9 mg/dL (8.5-10.5); Carbon Dioxide 21 mmol/L (22-29); Chloride 102 mmol/L (98-107); Globulin 3.2 g/dL (1.3-4.6); Glomerular Filtration Rate 84.2 mL/min (90-130); Glucose 105 mg/dL (65-115); NT Pro B Type Natriuretic Pept 76 pg/mL (0-125); Osmolality Calculated 283 mOsm/kg (285-295); Potassium 4.3 mmol/L (3.5-5.1); Sodium 137 mmol/L (136-145); Total Bilirubin 0.2 mg/dL (0.15-1.2); Total Protein 7.2 g/dL (6.6-8.7)
--- NOTE | 2021-10-02 10:25 | CT_ITS ---
WS: [id number] CTA OF THE CHEST WITH PULMONARY EMBOLISM PROTOCOL TECHNIQUE: High-resolution contrast enhanced CTA of the chest with coronal and sagittal reformatted i mages with pulmonary embolism protocol. MIP images are also reviewed. CLINICAL INFORMATION: R chest pain; elevated d dimer COMPARISON: None. DLP: 558.[address] scans at [facility] use at least one of these dose optimization techniques: automated e xposure control; mA and/or kV adjustment per patient size (includes targeted exams where dose is matc hed to clinical indication); or iterative reconstruction. FINDINGS: Both lungs are well aerated. No focal pneumonia or pleural fluid. Small hazy groundglass opacity in t he right upper lobe laterally measuring 5 mm. Slight hazy micronodular groundglass infiltrate in righ t upper lobe anteriorly similar to November 19, 2019. Proximal main pulmonary arteries are normal. Normal segmental and subsegmental pulmonary arteries. No evidence of pulmonary embolus. Normal caliber thoracic aorta. Aortic calcification. No mediastinal or hilar lymphadenopathy. No axil tim lymphadenopathy. Adrenal glands are normal. Partially visualized hepatomegaly. Cholelithiasis. Small esophageal hiatal hernia. Stable low-attenua tion lesion right hepatic lobe likely hepatic cyst or hemangioma unchanged since November 19, 2019 jeffery suring 10 mm. Postoperative changes lower cervical spine. CT/CT angio chest PE protcl [id number] IMPRESSION: 1. Proximal main pulmonary arteries are normal. No evidence of pulmonary embol us. 2. No focal pneumonia or pleural fluid. 3. Small patchy opacity in the right lower lobe laterally measuring 6 mm. Tyshawn mmend 6 month follow-up. 4. Micronodular groundglass infiltrate in right upper lobe anteriorly similar to November 19, 2019 likely infectious or inflammatory. 5. No other suspicious pulmonary opacities. 6. Small esophageal hiatal hernia. 7. Cholelithiasis. 8. No other significant changes compared to previous. 9. Infectious or inflammatory with a few
[2021-10-02] MEDS: ondansetron 2 mg/ML SDV 2 mL 4 MG IVP (10:42)
[2021-10-02] MEDS: morphine 4 mg/mL SDV 1 mL IVP (10:44)
[2021-10-02] MEDS: iohexol 350 mg/mL 100 mL Btl IV (11:19)
[2021-10-02 12:07] LABS: Troponin 5 2HR 10.29 ng/L (0-10)
[2021-10-02 12:09] LABS: Troponin 5 2HR Delta -0.71 ABS# (0-10)
[2021-10-02 12:26] LABS: SARS Covid-2 Antigen Positive (Negative)
[2021-10-02] MEDS: dexamethasone 10 mg/mL INJ 6 MG IVP (13:40)
--- NOTE | 2021-10-02 14:39 | ECG_ITS ---
[facility] Test Date: 2021-10-02 Pat Name: Camille Dash Department: Room: Gender: Female Turn Operator: : 1955 Requested By: Lindsay Jones Order Number: [id number] Maikel MD: Mary Suggs M.D. Measurements Intervals [place] Rate: 91 P: 58 DE: 169 QRS: 25 QRSD: 90 T: -10 QT: 347 QTc: 427 Interpretive Statements SINUS RHYTHM ST DEVIATION AND MODERATE T-WAVE ABNORMALITY, CONSIDER ANTEROLATERAL ISCHEMIA [-0.1+ mV T-WAVE IN V3-V6] Compared to ECG 11/19/2019 13:03:34 Myocardial infarct finding no longer present T-wave abnormality still present Possible ischemia still present Electronically Signed On 10-02-2021 22:11:40 COSTUMER ASSISTANT by Mary Suggs M.D. [id number]
== END 2021-10-02 13:58 | disposition home or self-care (01) ==
PROVIDERS: Emergency Provider Physician Assistant; PCP Registered Nurse
DX: U07.1 COVID-19 (principal); Z87.891 Personal history of nicotine dependence
CPT/HCPCS: 36415; 71045; 71275; 80053; 83880; 84484; 85025; 85378; 87426; 93005; 96374; 96375; 99284; J1100; J2270; J2405; Q9967

== ENCOUNTER → 2022-02-05 15:11 | Outpatient (BNVA) | payer MEDICARE, SELFPAY | PROVIDERS: PCP Registered Nurse; Visit Provider Registered Nurse | DX: R30.0 Dysuria (principal) | CPT/HCPCS: 81000 ==

== ENCOUNTER 2022-08-03 00:04 | Observation (INO) | payer MEDICARE, SELFPAY ==
[2022-08-03] VITALS (16 sets, daily range): BP systolic 105–147; BP diastolic 73–82; PULSE 77–107; RESP 16–18; TEMP 36.9–37.1; O2SAT 93–99; BMI 31.1
--- NOTE | 2022-08-03 00:23 | ED_ITS ---
HPI - SOB/Dyspnea General: Chief Complaint: Shortness of Breath/Dyspnea Stated Complaint: BACK PAIN/SOB Time Seen by Provider: 08/03/22 00:23 History of Present Illness: HPI Narrative: Ms. Dash is a 66-year-old lady with history of spinal stenosis, chronic back pain, asthma without baseline oxygen requirement presenting to the emergency department for respiratory distress and back pain. She reports testing positive for COVID 3 days ago after having sick contact at a family member. She endorses progressively worsening shortness of breath associated with cough and now worsening back pain. Intensity symptoms is moderate to severe. Course is worsened. EMS did have to place patient on supplemental oxygen due to hypoxemia. No other specific changes in health, exacerbating, or alleviating factors identified. Onset (ago): day(s) Context: recent illness Timing: progressively worsening Severity: severe Exacerbating factors: exertion and coughing Associated symptoms: Reports cough, myalgias and other Review of Systems General: Reports: 10 or more systems reviewed and unremarkable except in HPI and below PFSH ED PFSH: Medical History Asthma 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 06/22/2015 C6-C7 anterior cervical discectomy/fusion/fixation. 03/10/2014 C3-C4 ACDFF. Hx of lumbosacral spine surgery January 28 2020, [facility], right L3-L4, L4-L5 hemilaminotomy/discectomy/foraminotomy Surgical history of tubal ligation Family History Mother Asthma Father Heart disease Social History Smoking and tobacco status: former smoker Second hand smoke exposure: No Alcohol intake: current Lives independently: Yes Household members: family Housing: House Marital status: / service: No Current occupational status: disabled History of recent travel: No Physical Exam Const: COMMON NORMALS: alert GENERAL APPEARANCE: cooperative, well developed and ill appearing HENMT: COMMON NORMALS: normocephalic and atraumatic HEAD & SCALP: normocephalic and atraumatic THROAT: posterior oropharynx normal Eye: COMMON NORMALS: conjunctivae normal CONJUNCTIVA: Yes conjunctivae normal SCLERA: sclerae normal Neck/C-Spine: COMMON NORMALS: supple GENERAL: Yes trachea midline Resp: EFFORT & INSPECTION: Yes tachypneic AUSCULTATION: rhonchi and diminished lung sounds Cardio: COMMON NORMALS: regular rhythm RATE: tachycardic RHYTHM: regular rhythm GI: COMMON NORMALS: Soft to palpation PALPATION: Yes Soft to palpation and No Tenderness to palpation present (GI) Back/Pelvis: LUMBAR SPINE/LOWER BACK: Yes lumbar spinal tenderness Extremity: GENERAL: Yes normal exam except as noted and No edema Neuro: COMMON NORMALS: moves all extremities SENSORIUM/ORIENTATION: Yes alert and No Orientation impaired Psych: COMMON NORMALS: mental status grossly normal and Normal thought process present THOUGHT PROCESS: Normal thought process present Course ED course: - Patient was seen and evaluated by me at bedside - Patient placed on cardiac monitors, IV access obtained - Initial evaluation notable for exam as above. New oxygen requirement, some degree of respiratory distress - Labs and xrays personally interpreted by me. EKG shows sinus rhythm with nonspecific ST segment abnormalities, no STEMI. -Analgesia for back pain, fluids, steroids and RT treatment ordered. - Labs notable for no leukocytosis, normal hemoglobin. Metabolic panel with some evidence of dehydration/metabolic stress. CRP elevated. D-dimer elevated. ABG pH 7.28/37.2/88.6. Urinalysis not concerning for urinary tract infection given squamous epithelial contamination. - Imaging notable for no lobar consolidation or pneumothorax on chest x-ray. Given elevated D-dimer and severe worsening of back pain CT imaging felt to be warranted. No evidence of pulmonary embolism or other acute pathology to explain worsening symptoms. - Upon serial reexamination after treatment the patient was not significantly improved despite treatment. Patient requiring 4 L of oxygen per minute to maintain oxygen saturations. - Based on patient history, evaluation, and testing as interpreted the most likely cause of the patient's condition is COVID-19 with hypoxemia - The results of ED evaluation were discussed with the patient including plan for admission due to requirement for level of care not available if discharged to prevent significant worsening/deterioration. - Admitting service was contacted and Dr Ledbetter with the hospitalist service agreed to admit the patient - Patient was admitted without further deterioration or significant events. Note: Click bubbles or prepopulated aguila in note writing are used for assistance with data collection and billing and are inherently more limited than narrative and other text portions of this note. Please use narrative for additional clinical history and defer to narrative/free test for any case of contradictory information. If information appears in only free text or click bubble it should be considered present or absent as reported. Please contact note magnetic tape typewriter operator for clarifications of clinical information or contradictory information. MDM is a brief summary, contradictory or erroneous seeming information should be clarified and full note should be reviewed. Vital Signs: Vital signs: Vital Signs Temperature 98.5 F 08/03/22 11:55 Pulse Rate 100 08/03/22 12:06 Respiratory Rate 18 08/03/22 15:59 Blood Pressure 139/82 08/03/22 11:55 Pulse Oximetry 93 08/03/22 14:11 Oxygen Delivery Me thod 08/03/22 12:06 Oxygen Flow Rate 2 08/03/22 12:06 MDM - SOB/Dyspnea Medical Decision Making 67-year-old lady with underlying asthma presenting to the emergency department for respiratory distress secondary to known COVID-positive. Patient requiring 4 L of oxygen with no significant improvement or other pathology identified in ED evaluation and treatment. Admitted for further management given oxygen requirement. Medical Records I reviewed the patient's medical records. Lab Data I reviewed the patient's lab results. : 08/03/22 01:15 08/03/22 01:25 Labs/Radiology: Radiology Impressions Chest X-Ray 08/03/22 00:38 IMPRESSION: Probable mild left basilar atelectasis. Chest CTA 08/03/22 02:56 IMPRESSION: There is no evidence for pulmonary emboli. Lumbar Spine CT 08/03/22 02:57 IMPRESSION: 1. There are no acute osseous findings. 2. Multilevel degenerative disc disease as described above. Laboratory Results WBC 7.7 10^3/uL (4.0-10.0) 08/03/22 01:15 RBC 4.68 10^6/uL (4.1-5.3) 08/03/22 01:15 Hgb 14.4 g/dL (11.5-15.3) 08/03/22 01:15 Hct 45.7 % (37.0-47.0) 08/03/22 01:15 MCV 97.6 fl (81-99) 08/03/22 01:15 MCH 30.8 pg (28.0-34.0) 08/03/22 01:15 MCHC 31.5 g/dL (30.0-36.0) 08/03/22 01:15 RDW 11.9 % (12.1-15.1) L 08/03/22 01:15 Plt Count 273 10^3/cmm (130-400) 08/03/22 01:15 MPV 10.3 fL (7.4-10.4) 08/03/22 01:15 Neut % (Auto) 77.2 % 08/03/22 01:15 Lymph % (Auto) 15.6 % 08/03/22 01:15 [place] % (Auto) 6.5 % 08/03/22 01:15 Eos % (Auto) 0.0 % 08/03/22 01:15 Baso % (Auto) 0.4 % 08/03/22 01:15 Neut # (Auto) 5.98 10^3/uL (1.8-7.7) 08/03/22 01:15 Lymph # (Auto) 1.2 10^3/uL (0.8-4.8) 08/03/22 01:15 [place] # (Auto) 0.5 10^3/uL (0.2-0.9) 08/03/22 01:15 Eos # (Auto) 0.0 10^3/uL (0.0-0.8) 08/03/22 01:15 Baso # (Auto) 0.0 10^3/uL (0.0-0.1) 08/03/22 01:15 Nucleated RBC % (auto) 0 % 08/03/22 01:15 Nucleated RBCs # 0.0 /100WBC 08/03/22 01:15 D-Dimer 0.98 ug/mIFEU (0-0.59) H 08/03/22 02:25 Specimen Type Arterial 08/03/22 01:01 Sample Site Radial, right 08/03/22 01:01 ABG pH 7.28 (7.35-7.45) L 08/03/22 01:01 ABG pCO2 37.2 mmHg (35-45) 08/03/22 01:01 ABG pO2 88.6 mmHg (80.0-100.0) 08/03/22 01:01 ABG HCO3 17.5 mmol/L (22-26) L 08/03/22 01:01 ABG Base Excess -8.4 mmol/L (-2.0-2.0) L 08/03/22 01:01 Awais Test Pos 08/03/22 01:01 Hematocrit 44.5 % (37-47) 08/03/22 01:01 O2 Delivery Device Nc 08/03/22 01:01 O2 Liters/Min 4.0 % 08/03/22 01:01 FiO2 36.0 % 08/03/22 01:01 Telephone Sales Agent ID [place] 08/03/22 01:01 Sodium 137 mmol/L (136-145) 08/03/22 01:25 Potassium 3.6 mmol/L (3.5-5.1) 08/03/22 01:25 Chloride 102 mmol/L (98-107) 08/03/22 01:25 Carbon Dioxide 17 mmol/L (22-29) L 08/03/22 01:25 Anion Gap 21.6 (5-19) H 08/03/22 01:25 BUN 16 mg/dL (8-23) 08/03/22 01:25 Creatinine 0.8 mg/dL (0.5-0.9) 08/03/22 01:25 GFR Calculation 72.0 mL/min (90-130) L 08/03/22 01:25 Glucose 88 mg/dL (65-115) 08/03/22 01:25 Calculated Osmolality 285 mOsm/kg (285-295) 08/03/22 01:25 Lactate 1.3 mmol/L (0.5-2.2) 08/03/22 01:36 Calcium 8.8 mg/dL (8.5-10.5) 08/03/22 01:25 Total Bilirubin 0.2 mg/dL (0.15-1.2) 08/03/22 01:25 AST 40 U/L (0-32) H 08/03/22 01:25 ALT 26 U/L (0-33) 08/03/22 01:25 Alkaline Phosphatase 164 U/L (35-105) H 08/03/22 01:25 Troponin T Baseline 10 ng/L (0-10) 08/03/22 01:25 Troponin T 120 Minute 9.40 ng/L (0-10) 08/03/22 04:45 Delta Troponin T -0.60 ABS# (0-10) L 08/03/22 04:45 Troponin T Hi Sens 6Hr 10.15 ng/L (0-10) H 08/03/22 07:18 Troponin T Hi Sens 6Hr Delta 0.15 ng/L (0-12) 08/03/22 07:18 C-Reactive Protein 89.9 mg/L (0.0-4.9) H 08/03/22 01:25 NT-Pro-B Natriuret Pep 146 pg/mL (0-125) H 08/03/22 01:25 Total Protein 7.4 g/dL (6.6-8.7) 08/03/22 01:25 Albumin 4.2 g/dL (3.5-5.2) 08/03/22 01:25 Globulin 3.2 g/dL (1.3-4.6) 08/03/22 01:25 Lipase 34 U/L (13-60) 08/03/22 01:25 Procalcitonin 0.11 ng/mL (0-0.5) 08/03/22 01:25 TSH 0.56 uIU/mL (0.27-4.20) 08/03/22 01:25 Urine Color Yellow (Yellow) 08/03/22 00:28 Urine Appearance Clear (CLEAR) 08/03/22 00:28 Urine pH 5 (5-7) 08/03/22 00:28 Ur Specific [place] 1.020 (1.005-1.030) 08/03/22 00:28 Urine Protein Neg (Negative) 08/03/22 00:28 Urine Glucose (UA) Norm (Normal) 08/03/22 00:28 Urine Ketones 3+ (Negative) H 08/03/22 00:28 Urine Blood 2+ (Negative) H 08/03/22 00:28 Urine Nitrate Negative (Negative) 08/03/22 00:28 Urine Bilirubin Neg (Negative) 08/03/22 00:28 Urine Urobilinogen Neg mg/dL (Negative) 08/03/22 00:28 Ur Leukocyte Esterase 1+ (Negative) H 08/03/22 00:28 Urine RBC 5-10 /hpf (0-2) H 08/03/22 00:28 Urine WBC 10-15 /hpf (0-5) H 08/03/22 00:28 Ur Squamous Epith Cells 5-10 /hpf (0-5) H 08/03/22 00:28 Amorphous Sediment Not Reportable 08/03/22 00:28 Urine Bacteria Trace /hpf (NONE) 08/03/22 00:28 Urine Mucus 2+ /hpf 08/03/22 00:28 SARS-CoV-2 Ag (Rapid) Positive (Negative) H 08/03/22 01:00 Discharge Plan Discharge Patient Disposition: Admitted As Inpatient Admit Provider: Toy Ledbetter Clinical Impression: COVID-19 Condition: Stable Coding Level of Care Code ED Solvent Process Extractor Operator for Chg Fwd Exam Comprehensive
--- NOTE | 2022-08-03 00:28 | ECG_ITS ---
[facility] Test Date: 2022-08-03 Pat Name: Camille Dash Department: Room: Gender: Female Road Conductor: : 1955 Requested By: Julio Michaud Order Number: [id number] Maikel MD: Benny Nelson M.D. Measurements Intervals [place] Rate: 88 P: 63 AR: 171 QRS: 35 QRSD: 81 T: -35 QT: 348 QTc: 423 Interpretive Statements SINUS RHYTHM LOW QRS VOLTAGE IN PRECORDIAL LEADS [QRS DEFLECTION < 1.0 mV IN CHEST LEADS] ST DEVIATION AND MODERATE T-WAVE ABNORMALITY, CONSIDER ANTEROLATERAL ISCHEMIA [-0.1+ mV T-WAVE IN V3-V6] ST DEVIATION AND MODERATE T-WAVE ABNORMALITY, CONSIDER INFERIOR ISCHEMIA [-0.1+ mV T-WAVE IN II/aVF] Compared to ECG 10/02/2021 09:13:25 Low QRS voltage now present T-wave abnormality still present Possible ischemia still present Electronically Signed On 08-03-2022 9:42:04 CDT by Benny Nelson M.D. [email or web address] [email or web address]/store/NU/[id number] marco
--- NOTE | 2022-08-03 00:38 | XRR_ITS ---
PROCEDURE INFORMATION: Exam: XR Chest Exam date and time: 08/03/2022 12:54 AM Age: 67 years old Clinical indication: Shortness of breath; Prior surgery; Surgery type: Cervical fusion; Patient HX: C/O SOB. TECHNIQUE: Imaging protocol: Radiologic exam of the chest. Views: 1 view. COMPARISON: CR XR chest 1V portable [id number] 10/02/2021 8:45 AM FINDINGS: Lungs: Some strandy opacities are seen in the left lung base likely representing atelectasis. Pleural spaces: Unremarkable. No pleural effusion. No pneumothorax. Heart/Mediastinum: Unremarkable. No cardiomegaly. Bones/joints: Unremarkable. XR/XR chest 1V portable [id number] IMPRESSION: Probable mild left basilar atelectasis.
[2022-08-03] MEDS: ipratropium-albuterol 3 mL Neb INHALATION ×3 (01:05→12:04)
[2022-08-03 01:13] LABS: ABG PCO2 37.2 mmHg (35-45); ABG PH Result 7.28 (7.35-7.45); Arterial Blood Gas Hematocrit 44.5 % (37-47); Base Excess ABG -8.4 mmol/L (-2.0-2.0); Blood Gas Allen Test Pos; Blood Gas Operator Identificat MONRO; Blood Gas Sample Site Radial, right; Blood Gas Sample Type Arterial; HCO3 ABG 17.5 mmol/L (22-26); PO2 ABG 88.6 mmHg (80.0-100.0)
[2022-08-03 01:14] LABS: Oxygen Device NC
[2022-08-03 01:14] LABS: Add Urine Microscopic? YES; Bilirubin Urine Neg (Negative); Blood Urine 2+ (Negative); Glucose Urine UA Norm (Normal); Ketones Urine 3+ (Negative); Leukocyte Esterase Urine 1+ (Negative); Nitrate Urine Negative (Negative); Protein Urine Neg (Negative); Urine Appearance Clear (CLEAR); Urine Color Yellow (Yellow); Urobilinogen Urine Neg (Negative); pH Urine 5 (5-7)
[2022-08-03 01:15] LABS: Bacteria Urine TRACE /hpf; Mucus Urine 2+ /hpf
[2022-08-03 01:17] LABS: Add Urine Culture? No
[2022-08-03 01:26] LABS: SARS Covid-2 Antigen Positive (Negative)
[2022-08-03 01:33] LABS: Basophils % 0.4 %; Hematocrit 45.7 % (37.0-47.0); Hemoglobin 14.4 g/dL (11.5-15.3); Lymphocytes # 1.2 10^3/uL (0.8-4.8); Lymphocytes % 15.6 %; Mean Corpuscular HGB Conc 31.5 g/dL (30.0-36.0); Mean Corpuscular Hemoglobin 30.8 pg (28.0-34.0); Mean Corpuscular Volume 97.6 fl (81-99); Mean Platelet Volume 10.3 fL (7.4-10.4); Monocytes # 0.5 10^3/uL (0.2-0.9); Monocytes % 6.5 %; Neutrophils # 5.98 10^3/uL (1.8-7.7); Neutrophils % 77.2 %; Nucleated Red Blood Cells % 0 %; Platelet Count 273 10^3/cmm (130-400); Red Blood Count 4.68 10^6/uL (4.1-5.3); Red Cell Distribution Width 11.9 % (12.1-15.1); White Blood Count 7.7 10^3/uL (4.0-10.0)
[2022-08-03 01:58] LABS: Lactate (Lactic Acid level) 1.3 mmol/L (0.5-2.2)
[2022-08-03] MEDS: dexamethasone 10 mg/mL INJ 6 MG IVP (01:58)
[2022-08-03] MEDS: morphine 4 mg/mL SDV 1 mL IVP ×2 (01:58→03:36)
[2022-08-03] MEDS: lactated ringers 1,000 ML 999 ML IV (01:58)
[2022-08-03 02:00] LABS: Troponin(5th) Baseline 10 ng/L (0-10)
[2022-08-03 02:09] LABS: NT Pro B Type Natriuretic Pept 146 pg/mL (0-125); Procalcitonin 0.11 ng/mL (0-0.5); Thyroid Stimulating Hormone 0.56 uIU/mL (0.27-4.20)
--- NOTE | 2022-08-03 02:15 | ECG_ITS ---
[facility] Test Date: 2022-08-03 Pat Name: Camille Dash Department: Room: Gender: Female Emergency Response Coordinator: : 1955 Requested By: Julio Michaud Order Number: [id number] Maikel MD: Benny Nelson M.D. Measurements Intervals [place] Rate: 91 P: 64 PA: 174 QRS: 42 QRSD: 85 T: -55 QT: 351 QTc: 433 Interpretive Statements SINUS RHYTHM LOW QRS VOLTAGE IN PRECORDIAL LEADS [QRS DEFLECTION < 1.0 mV IN CHEST LEADS] ST DEVIATION AND MODERATE T-WAVE ABNORMALITY, CONSIDER ANTEROLATERAL ISCHEMIA [-0.1+ mV T-WAVE IN V3-V6] ST DEVIATION AND MODERATE T-WAVE ABNORMALITY, CONSIDER INFERIOR ISCHEMIA [-0.1+ mV T-WAVE IN II/aVF] Compared to ECG 08/03/2022 00:28:50 No significant changes Electronically Signed On 08-03-2022 9:45:03 CDT by Benny Nelson M.D. [email or web address].[email or web address]/store/[id number]
[2022-08-03 02:20] LABS: Alanine Aminotransferase 26 U/L (0-33); Albumin Level 4.2 g/dL (3.5-5.2); Alkaline Phosphatase 164 U/L (35-105); Anion Gap 21.6 (5-19); Aspartate Amino Transferase 40 U/L (0-32); Blood Urea Nitrogen 16 mg/dL (8-23); C Reactive Protein 89.9 mg/L (0.0-4.9); Calcium 8.8 mg/dL (8.5-10.5); Carbon Dioxide 17 mmol/L (22-29); Chloride 102 mmol/L (98-107); Globulin 3.2 g/dL (1.3-4.6); Glucose 88 mg/dL (65-115); Lipase 34 U/L (13-60); Osmolality Calculated 285 mOsm/kg (285-295); Potassium 3.6 mmol/L (3.5-5.1); Sodium 137 mmol/L (136-145); Total Bilirubin 0.2 mg/dL (0.15-1.2); Total Protein 7.4 g/dL (6.6-8.7)
[2022-08-03 02:54] LABS: D Dimer 0.98 ug/mIFEU (0-0.59)
--- NOTE | 2022-08-03 02:56 | CTR_ITS ---
PROCEDURE INFORMATION: Exam: CTA Chest With Contrast Exam date and time: 08/03/2022 3:58 AM Age: 67 years old Clinical indication: Abnormal findings; Abnormal diagnostic tests; Elevated d-dimer; Shortness of breath; Prior surgery; Surgery type: Cervical fusion; Patient HX: C/O SOB. Elevated d dimer. ; Additional info: SOB, new o2, elevated ddimer TECHNIQUE: Imaging protocol: Computed tomographic angiography of the chest with contrast. 3D rendering (Not supervised by radiologist): MIP and/or 3D reconstructed images were created by the technologist. Radiation optimization: All CT scans at this facility use at least one of these dose optimization techniques: automated exposure control; mA and/or kV adjustment per patient size (includes targeted exams where dose is matched to clinical indication); or iterative reconstruction. Contrast material: OMNI 350; Contrast volume: 65 ml; Contrast route: INTRAVENOUS (IV); COMPARISON: CT angio chest PE protcl [id number] 10/02/2021 11:15 AM RADIATION DOSE METRICS: Total DLP (mGy-cm): 416.15 FINDINGS: Pulmonary arteries: Normal. No pulmonary emboli. Aorta: Calcifications are present within the thoracic aorta. Lungs: Unremarkable. No consolidation. No masses. Pleural spaces: There is mild thickening of the minor fissure appearing stable compared with 10/02/2021. Mild thickening of the major fissure on the left is seen appearing stable compared with 10/02/2021 as well. No pneumothorax. No pleural effusion. Heart: No coronary artery calcifications are seen. Lymph nodes: Unremarkable. No enlarged lymph nodes. Bones/joints: There is mild deformity of the superior endplate of T10 vertebral body likely secondary to the diffuse demineralization. Soft tissues: Unremarkable. CT/CT angio chest PE protcl [id number] IMPRESSION: There is no evidence for pulmonary emboli.
--- NOTE | 2022-08-03 02:57 | CTR_ITS ---
PROCEDURE INFORMATION: Exam: CT Lumbar Spine Without Contrast Exam date and time: 08/03/2022 3:58 AM Age: 67 years old Clinical indication: Prior surgery; Surgery type: Laminectomy; Patient HX: C/O chronic low back pain. History of uterine fibroid. TECHNIQUE: Imaging protocol: Computed tomography of the lumbar spine without contrast. Radiation optimization: All CT scans at this facility use at least one of these dose optimization techniques: automated exposure control; mA and/or kV adjustment per patient size (includes targeted exams where dose is matched to clinical indication); or iterative reconstruction. COMPARISON: MR lumbar spine wo con* [id number] 06/15/2020 12:45 PM RADIATION DOSE METRICS: Total DLP (mGy-cm): 760.54 FINDINGS: Bones/joints: There is a severe loss of disc height seen at L4-S1 with vacuum disc phenomenon present. Status post laminectomy at L4 on the right. There is broad-based posterior but disc bulging seen at the L3-L4 level encroaching on the neural foramina bilaterally, left more prominent than right. Broad-based posterior disc bulging is seen L4-L5 again encroaching on the neural foramina bilaterally, left more prominent than right. There is bilateral facet and ligamentum flavum hypertrophy present, left more prominent than right further encroaching on the left neural foramen. At L5-S1, broad-based posterior disc bulging is present which in combination with bilateral facet ligamentum flavum hypertrophy encroaches on the spinal circumferentially and encroaches on the neural. Reproductive: There are calcified uterine fibroids again seen. Soft tissues: Unremarkable. CT/CT lumbar spine wo con* [id number] IMPRESSION: 1. There are no acute osseous findings. 2. Multilevel degenerative disc disease as described above.
[2022-08-03] MEDS: iohexol 350 mg/mL 100 mL Btl IV (04:25)
--- NOTE | 2022-08-03 06:02 | USCV_ITS ---
Camille Dash Age: 67 Gender: F : 1955 Exam Date: 08/03/2022 06:13 Ordering Phys: Toy Ledbetter MD Technologist: Mouna Denny Exam Location: [facility] [place] Indication: SOB Covid BP: 150 / 110 HR: 83 Rhythm: Sinus Technical Quality: Suboptimal MEASUREMENTS (Male / Female) Normal Values 2D ECHO LV Diastolic Diameter PLAX 4.9 cm 4.2 - 5.9 / 3.9 - 5.3 cm LV Systolic Diameter PLAX 2.8 cm LV Chamber Size 2.8 cm IVS Diastolic Thickness 0.9 cm 0.6 - 1.0 / 0.6 - 0.9 cm IVS Systolic Thickness 1.7 cm LVPW Diastolic Thickness 1.4 cm 0.6 - 1.0 / 0.6 - 0.9 cm LVPW Systolic Thickness 1.7 cm RV Chamber Size 2.6 cm LVOT Diameter 2.0 cm LV Ejection Fraction 2D Teich 72.9 % LV Ejection Fraction MOD 2C 40.2 % LV Ejection Fraction 2C AL 35.5 % LA Diameter 3.0 cm LA Width 2.3 cm LA Height 3.8 cm RA Width 3.0 cm RA Height 4.2 cm Aorta at Sinotubular Diameter 2.8 cm IVC Diameter 1.8 cm M-MODE Aortic Annulus Diameter 3.5 cm LA Ao Ratio MM 1.0 MV E Point Septal Separation 0.5 cm DOPPLER AV Peak Velocity 119.0 cm/s LVOT Peak Velocity 74.0 cm/s AV Area Cont Eq vti 1.9 cm squared AV Area Cont Eq pk 2.0 cm squared MV Area PHT 4.9 cm squared Mitral E to A Ratio 0.9 MV E' Velocity 40.5 cm/s Mitral E to MV E' Ratio 10.6 Mitral E to LV E' Lateral Ratio 9.1 Mitral E to LV E' Septal Ratio 12.6 TR Peak Velocity 138.8 cm/s TR Peak Gradient 7.7 mmHg TR Mean Velocity 97.9 cm/s TR Mean Gradient 4.2 mmHg TR Velocity Time Integral 31.6 cm TV Peak E Velocity 43.0 cm/s Right Atrial Pressure 3.0 mmHg Pulmonary Artery Systolic Pressu 10.7 mmHg RV Acceleration Time 0.2 s RV Ejection Time 0.4 s RV AcT/ET 0.5 FINDINGS Left Ventricle Normal left ventricular size, systolic function and wall thickness, with no regional wall motion abnormalities. Left ventricular ejection fraction is estimated at 55 %. Right Ventricle Normal right ventricular size and systolic function. Normal right ventricular systolic pressure. Right Atrium The right atrium is normal in size. Left Atrium The left atrium is normal in size. Mitral Valve Mitral valve not well visualized. No mitral valve regurgitation. Aortic Valve Aortic valve not well visualized. No aortic valve regurgitation. No aortic valve stenosis. Tricuspid Valve Tricuspid valve not well visualized. Pulmonic Valve Pulmonic valve not well visualized. Pericardium Normal pericardium without effusion. Aorta Normal ascending aorta dimension. IVC Inferior vena cava not visualized. CONCLUSIONS Normal left ventricular size, systolic function and wall thickness, with no regional wall motion abnormalities. Left ventricular ejection fraction is estimated at 55 %. There are no prior echocardiogram studies to compare. Dr. Benny Nelson MD (Electronically Signed) Final Date: 03 August 2022 09:10 S
--- NOTE | 2022-08-03 06:04 | PM.HP ---
Providers/Chief Complaint Primary Care Provider: ROME Villagomez Chief Complaint: BACK PAIN/SOB History of Present Illness Camille Dash is a 67 year old female with a past medical history of asthma, chronic neck pain with cervical radiculopathy, chronic low back pain, who presents [facility] due to cough, fevers, shortness of breath malaise since Friday. She also tells me that her back pain has been severe for the last few days. She tells me that she has not received any COVID vaccinations. Denies smoking, no chest pain, no palpitations. She tested positive for COVID 3 days ago, positive sick contact, her symptoms progressively worsened over the next few days, EMS was called out to her home and placed her on oxygen, Review of Systems Const: Reports: fever(s), fatigue and malaise Card: Denies: chest pain Resp: Reports: dyspnea GI: Denies: abdominal pain or diarrhea : Denies: difficulty voiding Musc: Reports: back pain Medications/Allergies Home Medications Medication Instructions Recorded Confirmed Last Taken Type Prevagen 1 cap PO DAILY 11/19/19 03/20/21 03/25/20 History docusate sodium 100 mg capsule 300 mg PO BEDTIME 11/19/19 03/20/21 03/24/20 History (Colace) multivitamin 1 cap PO DAILY 11/19/19 03/20/21 03/25/20 History vitamin B complex (Super B-50 1 cap PO DAILY 11/19/19 03/20/21 03/25/20 History Complex) biotin 5 mg tablet 5 mg PO DAILY 03/25/20 03/20/21 03/25/20 History shscnaoemmvxc-fratdzeocgevx-jypqogdqhan 2 tab PO .1 day PRN 05/18/20 03/20/21 Unknown History 5 mg-325 mg-200 mg tablet (Tylenol Cold Head Congestion Severe) albuterol sulfate See Rx Instructions .Route 07/02/21 Unknown Rx .COMPLEX #180 mL amitriptyline 100 mg tablet 100 mg PO DAILY #90 tabs 02/05/22 02/05/22 Unknown Rx marijuana brownies PO 02/05/22 Unknown History zonisamide 100 mg capsule See Rx Instructions .Route 04/19/22 Unknown Rx .COMPLEX 90 days #360 caps albuterol sulfate 90 mcg/actuation See Rx Instructions .Route 06/03/22 Unknown Rx aerosol inhaler .COMPLEX #25.5 grams fluticasone propionate 115 See Rx Instructions .Route 07/16/22 Unknown Rx mcg-salmeterol 21 mcg/actuation .COMPLEX #12 grams HFA inhaler (Advair HFA) Allergies Allergy/AdvReac Type Severity Reaction Status Date / Time cefdinir Allergy Mild itchy Verified 02/05/22 14:40 eyes,light sensitivity, difficulty breathing doxycycline Allergy Mild itch eyes Verified 02/05/22 14:40 and light sensitivity PFSH Acute PFSH: Medical History Asthma 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 06/22/2015 C6-C7 anterior cervical discectomy/fusion/fixation. 03/10/2014 C3-C4 ACDFF. Hx of lumbosacral spine surgery [place] 2020, [facility] [place] L3-L4, L4-L5 hemilaminotomy/discectomy/foraminotomy Surgical history of tubal ligation Family History Mother Asthma Father Heart disease Social History Smoking and tobacco status: former smoker Second hand smoke exposure: No Alcohol intake: current Lives independently: Yes Household members: family Housing: House Marital status: / service: No Current occupational status: disabled History of recent travel: No Vitals/I&O/Wt Last Vital Signs Temp 98.7 F 08/03/22 00:33 Pulse 87 08/03/22 05:20 Resp 18 08/03/22 05:20 BP 147/82 08/03/22 05:20 Pulse Ox 97 08/03/22 05:20 O2 Del Method 08/03/22 05:20 O2 Flow Rate 3 08/03/22 05:20 08/02/22 08/02/22 08/03/22 14:59 22:59 06:59 Intake Total 1000 / 1000 Balance 1000 / 1000 Weight last 48 hrs Weight 77.111 kg Physical Exam Const: COMMON NORMALS: no acute distress and patient oriented x3 HENMT: COMMON NORMALS: normocephalic HEAD & SCALP: normocephalic Eye: COMMON NORMALS: Equal, round and reactive pupils present and EOMs intact bilaterally Neck/C-Spine: COMMON NORMALS: no JVD Resp: COMMON NORMALS: normal respiratory effort, No retractions, No use of accessory muscles and clear to auscultation bilaterally AUSCULTATION: clear to auscultation bilaterally Cardio: COMMON NORMALS: no JVD, regular rate, regular rhythm, S1 normal heart sound present and S2 normal heart sound present RATE: regular rate RHYTHM: regular rhythm HEART SOUNDS: S1 normal heart sound present and S2 normal heart sound present GI: COMMON NORMALS: Normal to inspection, nondistended, normoactive bowel sounds present, Soft to palpation, non-tender, No hepatosplenomegaly present, no masses and no bruits PALPATION: Yes Soft to palpation and Yes No hepatosplenomegaly present Extremity: COMMON NORMALS: capillary refill normal, no clubbing, cyanosis or edema, no calf tenderness and no pedal edema Neuro: COMMON NORMALS: patient oriented x3, CN's II-XII intact bilaterally and moves all extremities Psych: COMMON NORMALS: mental status grossly normal Data : 08/03/22 01:15 08/03/22 01:25 Micro: Microbiology 08/03/22 02:30 Blood Culture - Preliminary Blood SPECIMEN COLLECTED 08/03/22 02:25 Blood Culture - Preliminary Blood SPECIMEN COLLECTED A&P Assessment and plan (1) COVID-19: Status: Acute (2) Obesity (BMI 30.0-34.9): Status: Acute (3) GERD (gastroesophageal reflux disease): Status: Acute Qualifiers: Esophagitis presence: without esophagitis Qualified Code(s): K21.9 - Gastro-esophageal reflux disease without esophagitis (4) Lumbar disc disease: Status: Acute Plan COVID-19 pneumonia -With acute hypoxic requiring 4 L -Start remdesivir -Decadron -Sputum culture, blood cultures -Ipratropium, budesonide -We will consider antibiotic therapy, hold off for now -EKG does show ST depressions in anterior leads, no significant troponin elevation, no chest pain complaints, telemetry monitoring, cardiac echo -Full code -Lovenox for DVT prophylaxis Attestations Medical Necessity Statement*: Patient requires hospitalization, outpatient observation, for COVID-19 pneumonia Coding Level of Care Code Acute 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
--- NOTE | 2022-08-03 06:38 | ECG_ITS ---
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 Measurements Intervals [place] Rate: 76 P: 57 MI: 186 QRS: 40 QRSD: 85 T: -60 QT: 393 QTc: 444 Interpretive Statements SINUS RHYTHM LOW QRS VOLTAGE IN PRECORDIAL LEADS [QRS DEFLECTION < 1.0 mV IN CHEST LEADS] ST DEVIATION AND MODERATE T-WAVE ABNORMALITY, CONSIDER ANTEROLATERAL ISCHEMIA [-0.1+ mV T-WAVE IN V3-V6] ST DEVIATION AND MODERATE T-WAVE ABNORMALITY, CONSIDER INFERIOR ISCHEMIA [-0.1+ mV T-WAVE IN II/aVF] Compared to ECG 08/03/2022 02:15:13 No significant changes Electronically Signed On 08-03-2022 8:37:14 CDT by Radha Tijerina M.D. [email or web address]
[2022-08-03 07:50] LABS: Troponin 5 6HR 10.15 ng/L (0-10)
[2022-08-03 07:56] LABS: Troponin 5 6HR Delta 0.15 ng/L (0-12)
[2022-08-03] MEDS: budesonide 0.5 mg/2 mL Neb INHALATION (08:04)
[2022-08-03] MEDS: remdesivir 200 MG in sodium chloride 0.9% (100 ml) 60 ML 100 MG IV (09:08)
[2022-08-03] MEDS: acetaminophen 325 mg Tablet 650 MG PO (09:09)
[2022-08-03] MEDS: enoxaparin 40 mg/0.4 mL Syringe SUBCUT (09:09)
--- NOTE | 2022-08-03 11:31 | P.DS_ITS ---
Discharge Providers Date of Admission: 08/03/22 07:41 Date of Discharge: August 03, 2022 Attending Provider at Admission: Toy Ledbetter MD Attending Provider at Discharge: Brijesh Mcnair MD Primary Care Provider: ROME Villagomez Diagnoses at Discharge Discharge Diagnosis (1) COVID-19: Status: Acute (2) Obesity (BMI 30.0-34.9): Status: Acute (3) GERD (gastroesophageal reflux disease): Status: Acute Qualifiers: Esophagitis presence: without esophagitis Qualified Code(s): K21.9 - Gastro-esophageal reflux disease without esophagitis (4) Lumbar disc disease: Status: Acute Reason for Visit Reason for Visit: BACK PAIN/SOB Hospital Course Hospital Course HPI: Toy Ledbetter MD Camille Dash is a 67 year old female with a past medical history of asthma, chronic neck pain with cervical radiculopathy, chronic low back pain, who presents [facility] due to cough, fevers, shortness of breath malaise since Friday. She also tells me that her back pain has been severe for the last few days. She tells me that she has not received any COVID vaccinations. Denies smoking, no chest pain, no palpitations. She tested positive for COVID 3 days ago, positive sick contact, her symptoms progressively worsened over the next few days, EMS was called out to her home and placed her on oxygen. Hospital course: She was admitted for the management of COVID-19: Initially she was kept on COVID protocol, duo nebs remdesivir Decadron, supplemental oxygen as needed, patient showed significant improvement, she was saturating well on barely 2 L supplemental oxygen. Her chief complaint was predominantly severe back pain, which is likely chronic in nature. She has been discharged on oral pain meds. Her home inhalers has been continued. Overall patient has responded fairly well and is being discharged home in stable condition. She will continue to follow with a primary care physician as an outpatient. Physical Exam Resp: COMMON NORMALS: normal respiratory effort, No retractions, No use of accessory muscles and clear to auscultation bilaterally EFFORT & INSPECTION: Yes symmetric chest movement AUSCULTATION: clear to auscultation bilaterally Cardio: COMMON NORMALS: regular rate, regular rhythm, S1 normal heart sound present, S2 normal heart sound present, No gallops present (Cardio), No murmurs present (Cardio), No rub (Cardio) and Peripheral pulses 2+ throughout RATE: regular rate RHYTHM: regular rhythm HEART SOUNDS: S1 normal heart sound present and S2 normal heart sound present PERIPHERAL PULSES: Peripheral pulses 2+ throughout GI: COMMON NORMALS: Normal to inspection, nondistended, normoactive bowel sounds present, Soft to palpation, non-tender, No hepatosplenomegaly present and no masses AUSCULTATION: Yes normoactive bowel sounds PALPATION: Yes Soft to palpation and Yes No hepatosplenomegaly present RECTAL EXAM: deferred Extremity: COMMON NORMALS: no clubbing, cyanosis or edema and no pedal edema Discharge Data Studies Completed and Pending Completed Studies During Hospitalization Category Date Time Status CT lumbar spine wo con* [id number] Stat Cat Scan 08/03/22 02:57 Completed CTA chest [CT angio chest PE protcl [id number]] Stat Cat Scan 08/03/22 02:56 Completed XR chest 1V portable [id number] Stat Exams 08/03/22 00:38 Completed CV. echo complete* [id number] Stat Ultrasound 08/03/22 06:02 Completed Pending at discharge Category Date Time Status Blood Culture Stat Lab 08/03/22 02:30 Results Sputum Culture and Gram Stain Stat Lab 08/03/22 06:02 Uncollected Radiology Impressions Chest X-Ray 08/03/22 00:38 IMPRESSION: Probable mild left basilar atelectasis. Chest CTA 08/03/22 02:56 IMPRESSION: There is no evidence for pulmonary emboli. Lumbar Spine CT 08/03/22 02:57 IMPRESSION: 1. There are no acute osseous findings. 2. Multilevel degenerative disc disease as described above. Laboratory Results WBC 7.7 10^3/uL (4.0-10.0) 08/03/22 01:15 RBC 4.68 10^6/uL (4.1-5.3) 08/03/22 01:15 Hgb 14.4 g/dL (11.5-15.3) 08/03/22 01:15 Hct 45.7 % (37.0-47.0) 08/03/22 01:15 MCV 97.6 fl (81-99) 08/03/22 01:15 MCH 30.8 pg (28.0-34.0) 08/03/22 01:15 MCHC 31.5 g/dL (30.0-36.0) 08/03/22 01:15 RDW 11.9 % (12.1-15.1) L 08/03/22 01:15 Plt Count 273 10^3/cmm (130-400) 08/03/22 01:15 MPV 10.3 fL (7.4-10.4) 08/03/22 01:15 Neut % (Auto) 77.2 % 08/03/22 01:15 Lymph % (Auto) 15.6 % 08/03/22 01:15 [place] % (Auto) 6.5 % 08/03/22 01:15 Eos % (Auto) 0.0 % 08/03/22 01:15 Baso % (Auto) 0.4 % 08/03/22 01:15 Neut # (Auto) 5.98 10^3/uL (1.8-7.7) 08/03/22 01:15 Lymph # (Auto) 1.2 10^3/uL (0.8-4.8) 08/03/22 01:15 [place] # (Auto) 0.5 10^3/uL (0.2-0.9) 08/03/22 01:15 Eos # (Auto) 0.0 10^3/uL (0.0-0.8) 08/03/22 01:15 Baso # (Auto) 0.0 10^3/uL (0.0-0.1) 08/03/22 01:15 Nucleated RBC % (auto) 0 % 08/03/22 01:15 Nucleated RBCs # 0.0 /100WBC 08/03/22 01:15 D-Dimer 0.98 ug/mIFEU (0-0.59) H 08/03/22 02:25 Specimen Type Arterial 08/03/22 01:01 Sample Site Radial, right 08/03/22 01:01 ABG pH 7.28 (7.35-7.45) L 08/03/22 01:01 ABG pCO2 37.2 mmHg (35-45) 08/03/22 01:01 ABG pO2 88.6 mmHg (80.0-100.0) 08/03/22 01:01 ABG HCO3 17.5 mmol/L (22-26) L 08/03/22 01:01 ABG Base Excess -8.4 mmol/L (-2.0-2.0) L 08/03/22 01:01 Awais Test Pos 08/03/22 01:01 Hematocrit 44.5 % (37-47) 08/03/22 01:01 O2 Delivery Device Nc 08/03/22 01:01 O2 Liters/Min 4.0 % 08/03/22 01:01 FiO2 36.0 % 08/03/22 01:01 Bus Person Dishwasher ID Devin 08/03/22 01:01 Sodium 137 mmol/L (136-145) 08/03/22 01:25 Potassium 3.6 mmol/L (3.5-5.1) 08/03/22 01:25 Chloride 102 mmol/L (98-107) 08/03/22 01:25 Carbon Dioxide 17 mmol/L (22-29) L 08/03/22 01:25 Anion Gap 21.6 (5-19) H 08/03/22 01:25 BUN 16 mg/dL (8-23) 08/03/22 01:25 Creatinine 0.8 mg/dL (0.5-0.9) 08/03/22 01:25 GFR Calculation 72.0 mL/min (90-130) L 08/03/22 01:25 Glucose 88 mg/dL (65-115) 08/03/22 01:25 Calculated Osmolality 285 mOsm/kg (285-295) 08/03/22 01:25 Lactate 1.3 mmol/L (0.5-2.2) 08/03/22 01:36 Calcium 8.8 mg/dL (8.5-10.5) 08/03/22 01:25 Total Bilirubin 0.2 mg/dL (0.15-1.2) 08/03/22 01:25 AST 40 U/L (0-32) H 08/03/22 01:25 ALT 26 U/L (0-33) 08/03/22 01:25 Alkaline Phosphatase 164 U/L (35-105) H 08/03/22 01:25 Troponin T Baseline 10 ng/L (0-10) 08/03/22 01:25 Troponin T 120 Minute 9.40 ng/L (0-10) 08/03/22 04:45 Delta Troponin T -0.60 ABS# (0-10) L 08/03/22 04:45 Troponin T Hi Sens 6Hr 10.15 ng/L (0-10) H 08/03/22 07:18 Troponin T Hi Sens 6Hr Delta 0.15 ng/L (0-12) 08/03/22 07:18 C-Reactive Protein 89.9 mg/L (0.0-4.9) H 08/03/22 01:25 NT-Pro-B Natriuret Pep 146 pg/mL (0-125) H 08/03/22 01:25 Total Protein 7.4 g/dL (6.6-8.7) 08/03/22 01:25 Albumin 4.2 g/dL (3.5-5.2) 08/03/22 01:25 Globulin 3.2 g/dL (1.3-4.6) 08/03/22 01:25 Lipase 34 U/L (13-60) 08/03/22 01:25 Procalcitonin 0.11 ng/mL (0-0.5) 08/03/22 01:25 TSH 0.56 uIU/mL (0.27-4.20) 08/03/22 01:25 Urine Color Yellow (Yellow) 08/03/22 00:28 Urine Appearance Clear (CLEAR) 08/03/22 00:28 Urine pH 5 (5-7) 08/03/22 00:28 Ur Specific [place] 1.020 (1.005-1.030) 08/03/22 00:28 Urine Protein Neg (Negative) 08/03/22 00:28 Urine Glucose (UA) Norm (Normal) 08/03/22 00:28 Urine Ketones 3+ (Negative) H 08/03/22 00:28 Urine Blood 2+ (Negative) H 08/03/22 00:28 Urine Nitrate Negative (Negative) 08/03/22 00:28 Urine Bilirubin Neg (Negative) 08/03/22 00:28 Urine Urobilinogen Neg mg/dL (Negative) 08/03/22 00:28 Ur Leukocyte Esterase 1+ (Negative) H 08/03/22 00:28 Urine RBC 5-10 /hpf (0-2) H 08/03/22 00:28 Urine WBC 10-15 /hpf (0-5) H 09/17/22 00:28 Ur Squamous Epith Cells 5-10 /hpf (0-5) H 08/03/22 00:28 Amorphous Sediment Not Reportable 08/03/22 00:28 Urine Bacteria Trace /hpf (NONE) 08/03/22 00:28 Urine Mucus 2+ /hpf 08/03/22 00:28 SARS-CoV-2 Ag (Rapid) Positive (Negative) H 08/03/22 01:00 Vitals Last Vital Signs Temp 98.5 F 08/03/22 08:00 Pulse 98 08/03/22 08:25 Resp 16 08/03/22 08:18 BP 115/73 08/03/22 08:00 Pulse Ox 98 08/03/22 08:26 O2 Del Method 08/03/22 08:26 O2 Flow Rate 2 08/03/22 08:26 Discharge Plan Discharge Patient Disposition: Home Condition: Stable Prescriptions: New Percocet 5-325 mg tablet 1 tab PO Q8H PRN (Reason: pain) Qty: 7 0RF Continued Tylenol Cold Head Congest Sevr 5-325-200 mg tablet 2 tab PO .1 day PRN marijuana brownies PO amitriptyline 100 mg tablet 100 mg PO DAILY Qty: 90 1RF albuterol sulfate 2.5 mg /3 mL (0.083 %) solution for nebulization See Rx Instructions .ROUTE .COMPLEX Qty: 180 0RF Dose Instruction: USE 1 VIAL VIA NEBULIZER TWICE DAILY NEEDED FOR SHORTNESS OF BREATH Rx Instructions: USE 1 VIAL VIA NEBULIZER TWICE DAILY NEEDED FOR SHORTNESS OF BREATH zonisamide 100 mg capsule See Rx Instructions .ROUTE .COMPLEX 90 Days Qty: 360 0RF Dose Instruction: TAKE 4 CAPSULES BY MOUTH ONCE DAILY Rx Instructions: TAKE 4 CAPSULES BY MOUTH ONCE DAILY albuterol sulfate 90 mcg/actuation HFA aerosol inhaler See Rx Instructions .ROUTE .COMPLEX Qty: 25.5 0RF Dose Instruction: INHALE 2 PUFFS BY MOUTH FOUR TIMES DAILY NEEDED FOR SHORTNESS OF BREATH Rx Instructions: INHALE 2 PUFFS BY MOUTH FOUR TIMES DAILY NEEDED FOR SHORTNESS OF BREATH Advair HFA 115-21 mcg/actuation HFA aerosol inhaler See Rx Instructions .ROUTE .COMPLEX Qty: 12 0RF Dose Instruction: Inhale 2 puffs by mouth twice daily Rx Instructions: Inhale 2 puffs by mouth twice daily multivitamin Capsule 1 cap PO DAILY docusate sodium [Colace] 100 mg Capsule 300 mg PO BEDTIME vitamin B complex [Super B-50 Complex] Capsule 1 cap PO DAILY Prevagen 1 cap PO DAILY biotin 5 mg Tablet 5 mg PO DAILY Discharge Orders: Discharge Order (Routine); Ordered 08/03/22 Ordered By: Brijesh Mcnair Referrals: Otilio Rojas MFTS [Primary Care Provider] - 1 week (Please call for an follow-up appointment in 1 week. ) Patient Instructions: Oxycodone/Acetaminophen (By mouth), COVID-19 (Coronavirus Disease 2019) (GEN), Opioid Safety Discharge Attestations Time Spent in Discharge Care*: less than 30 min Status at Discharge: Cognitive status at discharge: cognitively intact , Behavioral status at discharge: cooperative , Quality Metrics Clinical Quality Measures [ No reported AMI, CVA or VTE this stay] Coding Level of Care Code Acute Chg DC note Diagnoses COVID-19 U07.1 Obesity (BMI 30.0-34.9) E66.9 GERD (gastroesophageal reflux disease) K21.9 Esophagitis presence: without esophagitis Lumbar disc disease M51.9
[2022-08-03] MEDS: oxyCODONE-APAP 5-325 mg Tablet 1 TAB PO (13:09)
--- NOTE | 2022-08-03 15:57 | PC.NURSE ---
Patient was discharged on 08/03/22 to home. Patient was taken out in a wheelchair with family.
== END 2022-08-03 16:00 | disposition home or self-care (01) ==
LOC: ER 01:22 → MEDSURG 06:54
PROVIDERS: Admitting Provider Family Medicine; Emergency Provider Emergency Medicine; PCP Registered Nurse; Visit Provider Internal Medicine
DX: U07.1 COVID-19 (principal); E66.9 Obesity, unspecified; Z68.31 Body mass index [BMI] 31.0-31.9, adult; K21.9 Gastro-esophageal reflux disease without esophagitis; M51.9 Unspecified thoracic, thoracolumbar and lumbosacral intervertebral disc disorder; Z87.891 Personal history of nicotine dependence; Z98.1 Arthrodesis status
CPT/HCPCS: 36415; 36600; 71045; 71275; 72131; 80053; 81001; 82803; 83605; 83690; 83880; 84145; 84443; 84484; 85025; 85378; 86140; 87040; 87426; 93005; 93306; 94640; 94664; 94760; 96372; 96374; 96375; 99285; G0378; J1100; J1650; J2270; J7611; J7626; Q9967

== ENCOUNTER → 2023-10-23 09:36 | Outpatient (BNVA) | payer MEDICARE, SELFPAY | PROVIDERS: PCP Registered Nurse; Visit Provider Registered Nurse | DX: Z00.00 Encounter for general adult medical examination without abnormal findings (principal); I10 Essential (primary) hypertension; Z13.6 Encounter for screening for cardiovascular disorders; E78.5 Hyperlipidemia, unspecified; Z53.20 Procedure and treatment not carried out because of patient's decision for unspecified reasons | CPT/HCPCS: 80053; 80061; 85025 ==

== ENCOUNTER → 2024-02-19 16:05 | Outpatient (BNVA) | payer MEDICARE, SELFPAY | PROVIDERS: PCP Registered Nurse; Referring Provider Family Medicine; Visit Provider Orthopaedic Surgery | DX: M54.2 Cervicalgia (principal) | CPT/HCPCS: 72050; 99204 ==

== ENCOUNTER 2024-03-22 10:44 | Outpatient (CLI) | payer MEDICARE, SELFPAY ==
--- NOTE | 2024-03-22 11:00 | MR_ITS ---
WS: [id number] MRI CERVICAL SPINE NONCONTRAST TECHNIQUE: Sagittal T1, T2 and STIR imaging. Axial T2, gradient, and fiesta imaging. CLINICAL INFORMATION: neck pain COMPARISON: CT 2019 FINDINGS: Some images degraded by susceptibility artifact from hardware. Straightening of the normal cervical lordosis. Postoperative changes ACDF C4-C6 with interbody fusion grafts. Prominent pannus formation at C1-2 with erosive changes similar to the prior CT. Associated edema within the dens grade 1 anterolisthesis C7 on T1. Shallow central protrusion T1-T2. C2-C3: Mild disc bulge with endplate ridging. Mild facet arthropathy. Mild RIGHT greater than LEFT fo raminal narrowing. C3-C4: Postoperative changes. Spinal canal and foramen are patent. Mild facet arthropathy. C4-C5: Postoperative changes. Moderate to severe LEFT and mild RIGHT bony foraminal narrowing. Modera te facet arthropathy. Spinal canal is patent. C5-C6: Postoperative changes. Moderate bilateral bony foraminal narrowing RIGHT greater than LEFT. Mo derate facet arthropathy with endplate ridging. C6-C7: Moderate to severe bilateral bony foraminal narrowing. Mild facet arthropathy. Spinal canal is patent. C7-T1: Grade 1 anterolisthesis C7 on T1. Small RIGHT paracentral protrusion with mild central canal s tenosis. Moderate RIGHT and mild LEFT foraminal narrowing. Visualized brain stem structures: Normal. Prevertebral soft tissues: Normal. MR/MR cervical spin wo con* [id number] IMPRESSION: 1. Straightening of the normal cervical lordosis with grade 1 anterolisthesis C7 on T1 similar to previous. 2. Mild central canal stenosis C7-T1 with a shallow RIGHT paracentral protrusi on appears progressed compared to previous. 3. Multilevel moderate to severe bony foraminal narrowing worse at LEFT C4-5, bilateral C5-C6 worse on the RIGHT, bilateral C6-C7 and RIGHT C7-T1. This is si milar to the prior myelogram. 4. Multilevel moderate facet arthropathy worse C3-C4 C4-C5 and C5-C6. 5. Prominent pannus formation at C1-2 with erosive changes. Edema within the d ens likely degenerative or reactive.
== END 2024-03-22 10:45 | disposition home or self-care (01) ==
LOC: RAD 10:44
PROVIDERS: PCP Registered Nurse; Visit Provider Orthopaedic Surgery
DX: M50.31 Other cervical disc degeneration, high cervical region (principal); M48.02 Spinal stenosis, cervical region; M47.892 Other spondylosis, cervical region; M43.19 Spondylolisthesis, multiple sites in spine; M48.04 Spinal stenosis, thoracic region; M51.26 Other intervertebral disc displacement, lumbar region
CPT/HCPCS: 72141

== ENCOUNTER → 2024-04-20 11:02 | Outpatient (BNVA) | payer MEDICARE, SELFPAY | PROVIDERS: PCP Registered Nurse; Referring Provider Nurse Practitioner Family; Visit Provider Orthopaedic Surgery | DX: M54.9 Dorsalgia, unspecified (principal); M54.2 Cervicalgia | CPT/HCPCS: 99214 ==

== ENCOUNTER 2024-05-24 10:30 | Outpatient (CLI) | payer MEDICARE, SELFPAY ==
--- NOTE | 2024-05-24 11:00 | MR_ITS ---
WS: [id number] MRI LUMBAR SPINE NONCONTRAST TECHNIQUE: Sagittal T1, T2 and STIR imaging. Axial T1 and T2 imaging. CLINICAL INFORMATION: back pain COMPARISON: MRI 2020 FINDINGS: Mild lumbar curve. No acute compression. Prior postoperative changes hemilaminectomies and partial di scectomy at L3-L4 and L4-L5. Disc space narrowing worse at L4-5. No high-grade central canal stenosis . L1-L2: Mild facet arthropathy. Spinal canal and foramina are patent. L2-L3: Mild annular bulging. Slight effacement of the ventral thecal sac. Mild facet arthropathy. Sma ll LEFT foraminal protrusion with mild LEFT foraminal narrowing. Slight contact of the exiting LEFT L 2 nerve root. This is similar to previous. L3-L4: Slight retrolisthesis. Stable narrowing of the subarticular recess bilaterally with mild resid ual annular bulging. Mild residual central canal stenosis. Mild bilateral foraminal narrowing unchang ed. L4-L5: Prior postoperative changes. Shallow central disc bulging with mild residual central canal [place] nosis. Slight narrowing of the LEFT subarticular recess. This is unchanged from previous. Mild RIGHT foraminal narrowing is unchanged. Mild facet arthropathy. L5-S1: Mild disc bulging with endplate ridging. Moderate facet arthropathy. Mild LEFT foraminal narro wing. Visualized pelvic bony structures: Normal. Paravertebral soft tissues: Normal. Partially visualized markedly enlarged and bulky fibroid uterus. MR/MR lumbar spine wo con* [id number] IMPRESSION: 1. Mild residual central canal stenosis L3-L4 and L4-L5 with narrowing of the subarticular recess stable compared to previous. 2. Small LEFT foraminal protrusion L2-3 with mild LEFT foraminal narrowing. 3. Stable bilateral 3-4 and RIGHT L4-5 foraminal narrowing. 4. Mild narrowing of the L5-S1 subarticular recess with a shallow central prot rusion. 5. Overall no significant changes compared to previous. 6. Prior postoperative changes L3-4 and L4-5 laminectomies with partial discec tomies. 7. Partially visualized bulky fibroid uterus.
== END 2024-05-24 10:31 | disposition home or self-care (01) ==
LOC: RAD 10:36
PROVIDERS: PCP Registered Nurse; Visit Provider Orthopaedic Surgery
DX: M54.9 Dorsalgia, unspecified (principal); M51.26 Other intervertebral disc displacement, lumbar region; Z98.890 Other specified postprocedural states; M46.96 Unspecified inflammatory spondylopathy, lumbar region
CPT/HCPCS: 72148

== ENCOUNTER → 2024-06-08 11:00 | Outpatient (BNVA) | payer MEDICARE, SELFPAY | PROVIDERS: PCP Registered Nurse; Visit Provider Orthopaedic Surgery | DX: M48.062 Spinal stenosis, lumbar region with neurogenic claudication (principal); M53.3 Sacrococcygeal disorders, not elsewhere classified; G89.29 Other chronic pain; M51.9 Unspecified thoracic, thoracolumbar and lumbosacral intervertebral disc disorder; Z01.818 Encounter for other preprocedural examination; M51.17 Intervertebral disc disorders with radiculopathy, lumbosacral region | CPT/HCPCS: 36415; 80053; 81001; 85025; 99214 ==

== ENCOUNTER → 2024-06-29 11:58 | Outpatient (BNVA) | payer MEDICARE, SELFPAY | PROVIDERS: PCP Registered Nurse; Visit Provider Family Medicine | DX: Z01.818 Encounter for other preprocedural examination (principal) | CPT/HCPCS: 93005 ==

== ENCOUNTER 2024-07-16 05:44 | Day surgery (SDC) | payer MEDICARE, SELFPAY ==
--- NOTE | 2024-06-30 14:55 | SUR.PREOP ---
[id number] spoke with pt regarding her medications and stated she took her multivitamin this am and informed pt that her sx is going to have to be cancelled for now, informed pt that all her OTC supplements and vitamins to be off 7 days,pt understood and verbalized understanding,informed pt to call office about being rescheduled and we will message office to let them know about this also
[2024-07-16] VITALS (11 sets, daily range): BP systolic 132–173; BP diastolic 73–98; PULSE 82–97; RESP 12–19; TEMP 36.5–37.3; O2SAT 95–100; BMI 26.9
[2024-07-16] MEDS: sodium chloride 0.9% 1,000 ML 30 ML IV (07:21)
--- NOTE | 2024-07-16 07:57 | P.ANESASSM_ITS ---
Pre-Anesthetic Assessment Height/Weight: Height 1.57 m Weight 66.678 kg Temp Pulse Resp BP Pulse Ox O2 Del Method 97.7 F 97 18 132/98 97 Room Air 07/16/24 06:54 07/16/24 06:54 07/16/24 06:54 07/16/24 06:54 07/16/24 06:54 07/16/24 06:56 Preop Diagnosis: Lumbar stenosis with neurogenic claudication Operation Date: 07/16/24 09:35 Proposed Procedures p Lumbar Spine Decompression Lumbar Decompression(Not Applicable) - Girma Brunner, DO Was Beta Jackelin taken within 24 hours: N/A Last intake: Intake Last Liquid Date 07/15/24 Last Liquid Time 18:00 Last Solid Date 07/15/24 Last Solid Time 17:00 Social No alcohol and No tobacco (cannabis brownies ) Exam alert, oriented x 3, clear to auscultation bilaterally and regular rate & rhythm Airway Submandibular: within normal limits Cervical ROM: Other (limited) Mallampati: Class II Pulmonary Asthma GI Gastroesophageal Reflux Disease (well controlled) Musc/skel Lower Back Pain and Osteoarthritis/DJD s/p cervical fusion Anesthetic Plan ASA status: 3 Anesthesia: General Medications/Allergies Home Medications Medication Instructions Recorded Confirmed Last Taken Type Prevagen 1 cap PO DAILY 11/19/19 07/16/24 07/06/24 History multivitamin 1 cap PO DAILY 11/19/19 07/16/24 07/06/24 History vitamin B complex (Super B-50 1 cap PO DAILY 11/19/19 07/16/24 07/06/24 History Complex capsule) marijuana brownies 2 ea PO BID PRN Pain 02/05/22 07/16/24 07/06/24 History albuterol sulfate 2.5 mg/3 mL See Rx Instructions .Route 05/04/24 07/16/24 Un known Rx (0.083 %) solution for nebulization .COMPLEX #180 mL duloxetine 30 mg capsule,delayed 30 mg PO DAILY 06/29/24 07/16/24 07/15/24 History release (Cymbalta) albuterol sulfate 90 mcg/actuation 2 puff inhalation QID PRN 06/30/24 07/16/24 07/15/24 History aerosol inhaler Shortness Of Breath Or Wheezing amitriptyline 100 mg tablet 100 mg PO DAILY 06/30/24 07/16/24 07/13/24 History fluticasone propionate 115 2 inh inhalation BID 06/30/24 07/16/24 07/15/24 History mcg-salmeterol 21 mcg/actuation HFA inhaler (Advair HFA) zonisamide 100 mg capsule 400 mg PO DAILY 06/30/24 07/16/24 07/15/24 History cyclobenzaprine 10 mg tablet 10 mg PO TID PRN muscle spasm 30 07/05/24 07/16/24 07/15/24 Rx days #90 tabs Allergies Allergy/AdvReac Type Severity Reaction Status Date / Time cefdinir Allergy Mild itchy Verified 07/16/24 06:50 eyes,light sensitivity, difficulty breathing doxycycline Allergy Mild itch eyes Verified 07/16/24 06:50 and light sensitivity Current Medications Generic Name Dose Route Start Last Admin Trade Name Freq PRN Reason Stop Dose Admin Sodium Chloride 1,000 mls @ 30 mls/hr 07/16/24 06:45 07/16/24 07:21 Sodium Chloride 0.9% IV 07/17/24 06:44 30 mls/hr .Q24H MARY Administration PFSH Anesthesia Medical History GERD (gastroesophageal reflux disease) Chronic right SI joint pain Lumbar disc disease Displacement of lumbar disc with radiculopathy Spinal stenosis of lumbar region with radiculopathy Encounter for long-term opiate analgesic use Intervertebral disc disorder with radiculopathy of lumbosacral region Cervical disc disorder with myelopathy of mid-cervical region Asthma Surgical History Hx of lumbosacral spine surgery January 28 2020, [facility] [place], right L3-L4, L4-L5 hemilaminotomy/discectomy/foraminotomy History of fusion of cervical spine 03/02/2018 C4-C5, C5-C6 ACDFF, with removal of prior C3-C4 and C6-C7 plate and screw fixation hardware. 06/22/2015 C6-C7 anterior cervical discectomy/fusion/fixation. 03/10/2014 C3-C4 ACDFF. Surgical history of tubal ligation Family History Mother Asthma Father Heart disease Social History Smoking and tobacco/nicotine status: former use of tobacco/nicotine Second hand smoke exposure: No Alcohol intake: current Substance/Drug Use: current Substance/Drug use frequency: daily Other substance/drug use details: has a green card, she uses marijuana in her brownies. Lives independently: Yes Household members: family Housing: House Marital status: / service: No Current occupational status: disabled Data Anesthesia Cardiac Studies: Echocardiogram 08/03/22
--- NOTE | 2024-07-16 10:10 | W.PM.OPSUD ---
Surgery/Procedure H&P Update DATE OF PROCEDURE: July 16, 2024 DATE H&P PERFORMED: 06/29/24 H&P UPDATE INFORMATION: I have reviewed H&P completed within last 30 days, I have examined patient prior to procedure and No changes to prior documentation PREOP DIAGNOSIS: Lumbar stenosis with neurogenic claudication PLANNED PROCEDURE: Operation Date: 07/16/24 09:35 Proposed Procedures p Lumbar Spine Decompression Lumbar Decompression(Not Applicable) - Girma Brunner DO
[2024-07-16] MEDS: clindamycin 900 MG/50 ML PREMIX 100 MG IV (10:32)
[2024-07-16] MEDS: lidocaine-epi 1% 20 mL INJ 10 ML INJECTION (11:11)
--- NOTE | 2024-07-16 12:10 | XR_ITS ---
WS: [id number] C-ARM RADIOGRAPHS LUMBAR SPINE; 3 IMAGES HISTORY: or pic, decompression. COMPARISON: None available. Intraoperative imaging during spinal decompression. There is a marker indicating the L5 vertebral bod y. XR/XR lumbar spine 1V [id number] IMPRESSION: Intraoperative imaging during spinal decompression surgery.
--- NOTE | 2024-07-16 12:18 | PM.OP ---
Operative Report Date of procedure: July 16, 2024 Pre-op diagnosis: Lumbar stenosis with neurogenic claudication Post-op diagnosis: same Procedure done: 1.L4-5 laminectomy with partial facetectomy revision 2. L5-S1 laminectomy with partial facetectomy Surgeon: Girma Brunner DO Estimated blood loss (mL): 10 Procedure: 1.L4-5 laminectomy with partial facetectomy revision 2. L5-S1 laminectomy with partial facetectomy Patient is brought to the operative suite. After undergoing anesthesia they are placed in the prone position. All areas of impingement are well padded. Patient is then prepped and draped in the normal sterile fashion. A skin incision is made over the L4/5 level. This is confirmed under c-arm guidance. A series of dilators are passed and the tubular retractor is docked on the L4 lamina. A bovie is used to clear the soft tissue off the lamina and the L 4/5 facet joint. A high speed alea is then used to perform the laminectomy and take down the medial aspect of the L 4/5 facet joint. A kerrison rongeure was then used to take down the remaining lamina and smooth the edge of the laminectomy up to the point where the ligamentum flavum attaches. Attention was then brought to the medial aspect of the facet joint. The remaining medial aspect of the superior and inferior aspect of the facet joint were taken down with the kerrison from the pedicle of L4 to L 5. The facet joint had significant hypertrophy. Attention was then brought to the Ligamentum Flavum. Ligament was scarred from previous surgery. He was used to identify the dura by finding the edge of the lamina and the medial aspect of facet joint. The L4 nerve was then traced with a curette out the L4/5 foramen and found to be adequately decompressed. The L5 nerve was traced with a curette around the L5 pedicle. The lateral recess was opened with a kerrison helping to further decompress the L5 nerve. Wound is then irrigated copiously with saline and surgiflo is used to stop any bleeding. The tubular retractor is removed and the A skin incision is made over the L5/S1 level. This is confirmed under c-arm guidance. A series of dilators are passed and the tubular retractor is docked on the L5 lamina. A bovie is used to clear the soft tissue off the lamina and the L 5/S1 facet joint. A high speed alea is then used to perform the laminectomy and take down the medial aspect of the L 5/S1 facet joint. A kerrison rongeure was then used to take down the remaining lamina and smooth the edge of the laminectomy up to the point where the ligamentum flavum attaches. Attention was then brought to the medial aspect of the facet joint. The remaining medial aspect of the superior and inferior aspect of the facet joint were taken down with the kerrison from the pedicle of L5 to S1. The facet joint had significant hypertrophy. Attention was then brought to the Ligamentum Flavum. The ligament was taken down from the lamina of L5 to S1 and out medially to the remaining facet joint. The ligament was thick. The dura was then exposed. The dura was in good repair. The L5 nerve was then traced with a curette out the L5/S1 foramen and found to be adequately decompressed. The S1 nerve was traced with a curette around the S1 pedicle. The lateral recess was opened with a kerrison helping to further decompress the S1 nerve. Wound is then irrigated copiously with saline and surgiflo is used to stop any bleeding. The tubular retractor is removed and the wound is closed with vicryl and monocryl suture. Glue is then used to protect the wound. A sterile dressing is then placed. Patient was then placed in the supine position and transferred to the PACU in stable condition.
[2024-07-16] MEDS: HYDROcodone-acetaminophen 5-325 mg Tablet 1 TAB PO (12:45)
== END 2024-07-16 13:06 | disposition home or self-care (01) ==
PROVIDERS: PCP Nurse Practitioner Family; Visit Provider Orthopaedic Surgery
PROC: (CPT 63005; principal; 2024-07-16 09:35)
DX: M48.062 Spinal stenosis, lumbar region with neurogenic claudication (principal); J45.909 Unspecified asthma, uncomplicated; K21.9 Gastro-esophageal reflux disease without esophagitis; Z98.1 Arthrodesis status; Z87.891 Personal history of nicotine dependence
CPT/HCPCS: 63047; 63048; 72020; 76000; J0330; J1100; J2405; J2704; J3010; J3490; J7030

== ENCOUNTER → 2024-07-29 13:00 | Outpatient (BNVA) | payer MEDICARE, SELFPAY | PROVIDERS: PCP Nurse Practitioner Family; Visit Provider Orthopaedic Surgery | DX: Z98.890 Other specified postprocedural states (principal) | CPT/HCPCS: 99024 ==